=== PATIENT | female | born 1935 | race Caucasian/White ===

== ENCOUNTER 2017-05-12 19:45 | Inpatient (IN) ==
[2017-05-12] MEDS ORDERED: IPRATROPIUM/ALBUTEROL 3 ML AMPUL.NEB NEB ONE (19:56)
[2017-05-12] MEDS ORDERED: FUROSEMIDE 40 MG/4 ML VIAL IV ONE (20:13)
[2017-05-12] MEDS ORDERED: ALBUTEROL SULFATE 2.5 MG/3 ML NEBULIZER NEB ONE (20:13)
[2017-05-12 21:38] LABS: Basophils # (Auto) 0 K/mcL (0.0-0.3); Basophils % (Auto) 0.3 % (0.0-2.0); Eosinophils # (Auto) 0.2 K/mcL (0.0-0.7); Eosinophils % (Auto) 2.5 % (0.0-7.0); Granulocytes % (Auto) 65.5 % (38.0-78.0); Lymphocytes # (Auto) 1.7 K/mcL (1.5-4.8); Lymphocytes % (Auto) 23.8 % (15.5-49.0); Mean Cell Volume 93.1 fL (80.0-100.0); Mean Corpuscular Hemoglobin 30.7 pg (26.0-34.0); Monocytes # (Auto) 0.6 K/mcL (0.1-0.9); Monocytes % (Auto) 7.9 % (1.0-12.0); Platelet Count 238 K/mcL (140-440); RBC 3.85 M/mcL (4.00-5.20); Red Cell Distribution Width 15.2 % (11.5-14.5)
[2017-05-12 22:01] LABS: ALT/SGPT 19 U/l (0-40); Albumin 3.2 gm/dL (3.2-5.2); Albumin/Globulin Ratio 0.7 (1.0-2.3); Alkaline Phosphatase 79 U/L (39-117); Blood Urea Nitrogen 38 mg/dl (8-23); Magnesium 2.2 mg/dL (1.6-2.5)
--- NOTE | 2017-05-12 23:16 | Emergency Department Note ---
SOB HPI - General Chief Complaint: Shortness of Breath/Dyspnea Stated Complaint: shortness of breath Time Seen by Provider: 05/12/17 19:56 Source: family Mode of arrival: wheelchair Limitations: no limitations - History of Present Illness 82-year-old female with complaint of worsening shortness of breath last 2-3 weeks. She does report feeling cold but she denies any fever nausea vomiting diarrhea. She has had some trouble eating secondary to the shortness of breath. She denies being on home oxygen. She does have a history of COPD as well as CHF and chronic kidney disease. Patient initially had pulse oximetry 86 % on room air - Related Data Home Medications Medication Instructions Recorded Confirmed multivitamin tablet 1 tab PO QDAY tab 12/14/14 04/30/17 budesonide 180 mcg/actuation 1 inh INHALATION BID 10/09/16 04/30/17 breath activated powder inhaler magnesium oxide 400 mg capsule 400 mg PO QDAY cap 11/03/16 04/30/17 fluticasone 250 mcg-salmeterol 50 1 inh INHALATION Q12H 02/02/17 04/30/17 mcg/dose blistr powdr for inhalation levalbuterol HFA 45 mcg/actuation 45 mcg INHALATION QID g 02/02/17 04/30/17 aerosol inhaler Previous Rx's Medication Instructions Recorded blood sugar diagnostic strips See Dose Instructions .ROUTE 08/07/15 .MEDSUPPLY #100 each cyclobenzaprine 10 mg tablet 10 mg PO TID PRN #1 tab 11/03/16 furosemide 20 mg tablet See Label Instructions PO QDAY #90 11/03/16 tab insulin syringe-needle U-100 0.5 See Dose Instructions .ROUTE 11/18/16 mL 31 gauge x 11/10" .MEDSUPPLY #100 each carvedilol 25 mg tablet 12.5 mg PO BID 30 Days #30 tab 11/19/16 metformin 500 mg tablet 500 mg PO BID 30 Days #60 tab 11/19/16 insulin lispro 100 unit/mL See Label Instructions SUB-Q 11/24/16 subcutaneous solution .COMPLEX #10 ml pen needle, diabetic 32 gauge x See Dose Instructions .ROUTE 11/24/16" .MEDSUPPLY #200 each pramipexole 0.25 mg tablet 0.25 mg PO QHS 90 Days #90 tab 12/01/16 digoxin 125 mcg tablet 125 mcg PO QDAY 90 Days #90 tab 12/08/16 Compression stockings (knee high, #1 each 12/31/16 15-20 mmHg) CPAP Machine and associated #1 each 01/13/17 supplies sucralfate 1 gram tablet 2 g PO BID 30 Days #120 tab 02/11/[address] 40 mg granules 40 mg PO QAMAC 30 Days #30 packet 02/15/17 delayed-release for susp in packet montelukast 10 mg tablet 10 mg PO QHS 90 Days #90 tab 02/23/17 nystatin 100,000 unit/gram topical 1 applic TOPICAL BID #60 each 03/18/17 powder furosemide 20 mg tablet 20 mg PO QDAY PRN #90 tab 03/25/17 sodium chloride 1 gram tablet 1 g PO QDAY #90 tab 03/29/17 insulin detemir 100 unit/mL See Label Instructions SUB-Q BID 04/14/17 subcutaneous solution 90 Days #45 ml gabapentin 300 mg capsule See Label Instructions PO .COMPLEX 04/19/17 #450 cap tramadol 50 mg tablet 50 mg PO Q6H PRN #360 tab 04/19/17 lisinopril 2.5 mg tablet 2.5 mg PO QDAY #90 tab 05/01/17 warfarin 2 mg tablet 3 mg PO QDAY #100 tab 05/06/17 Allergies Allergy/AdvReac Type Severity Reaction Status Date / Time nitrofurantoin Allergy Mild Blister Verified 04/30/17 09:47 [From Macrodantin] Band-Aid AdvReac Mild Blister Uncoded 04/30/17 09:47 Review of Systems All systems ED: reviewed and negative except as stated. Past Medical History - Past Medical History Attestation: Yes: The following information was validated with the patient. Medical history: Reports: arthritis, asthma, atrial fibrillation, cancer ( Gastric lymphoma, Waldenstroms, MGUS, pancreatic neoplasm), CHF, COPD, dementia , diabetes, hyperlipidemia, hypertension, obesity, renal disease Surgical history ED: Reports: cholecystectomy, hysterectomy, orthopedic, other ( low back), other (port) - Social History smoking status: Never smoker Alcohol use: Reports: None Physical Exam Some acute distress secondary to wheezing-modest improvement with single DuoNeb treatment. Normocephalic atraumatic. Conjunctive are noninjected bilaterally. No discharge. No nasal discharge but audible congestion. Oropharynx is pink and moist. Neck is supple without lymphadenopathy or thyromegaly. Heart is with irregularly irregular rhythm but regular rate. Lungs with end expiratory wheezing pursed lip breathing. Tight cough occasionally. Abdomen is soft nontender nondistended. +2 radial pulse. Both legs with Vargas wrapped calves due to edema-patient says they are actually about typical for her. She is able to sit forward for my exam with minimal assistance so I can listen to her lungs. She is alert oriented able to answer most of my questions. No dysarthria or ataxia Limitations: no limitations Course Vital Signs Temperature 97.7 F 05/12/17 19:46 Pulse Rate 74 05/12/17 19:46 Respiratory Rate 19 05/12/17 19:46 Blood Pressure 132/99 05/12/17 19:46 Pulse Oximetry (%) 86 L 05/12/17 19:46 Temperature 97.7 F 05/12/17 19:46 Pulse Rate 75 05/13/17 00:02 Respiratory Rate 21 05/13/17 00:02 Blood Pressure 152/82 05/13/17 00:02 Pulse Oximetry (%) 94 05/13/17 00:02 Shortness of Breath/Dyspnea - Lab Data Lab results reviewed: Yes I reviewed the patient's lab results. Result diagrams: 05/12/17 20:38 05/12/17 20:37 Lab Results 05/12/17 05/12/17 05/12/17 Range/Units 20:37 20:38 20:38 WBC 7.3 (4.5-11.0) K/mcL RBC 3.85 L (4.00-5.20) M/mcL Hgb 11.8 L (12.0-15.0) g/dL Hct 35.9 L (36.0-48.0) % POC Hct 39.0 (36.0-48.0) % MCV 93.1 (80.0-100.0) fL MCH 30.7 (26.0-34.0) pg MCHC 33.0 (31.0-36.0) g/dL RDW 15.2 H (11.5-14.5) % Plt Count 238 (140-440) K/mcL MPV 8.7 (7.4-10.4) fL Gran % 65.5 (38.0-78.0) % Lymph % (Auto) 23.8 (15.5-49.0) % [place] % (Auto) 7.9 (1.0-12.0) % Eos % (Auto) 2.5 (0.0-7.0) % Baso % (Auto) 0.3 (0.0-2.0) % Gran # 4.8 (1.8-8.0) K/mcL Lymph # (Auto) 1.7 (1.5-4.8) K/mcL [place] # (Auto) 0.6 (0.1-0.9) K/mcL Eos # (Auto) 0.2 (0.0-0.7) K/mcL Baso # (Auto) 0 (0.0-0.3) K/mcL PT (11.9-14.5) sec INR (0.9-1.1) VBG Lactic Acid 1.8 (0.5-2.2) mmol/L POC Sodium 135 (133-145) mmol/L Sodium 132 L (133-145) mmol/L POC Potassium 4.5 (3.3-5.1) mmol/L Potassium 4.6 (3.3-5.1) mmol/L POC Chloride 90 L (96-108) mmol/L Chloride 91 L (96-108) mmol/L Carbon Dioxide 27 (22-30) mmol/L POC Total CO2 29 (22-30) mmol/L Anion Gap 14.0 (8-16) POC BUN 38 H (8-23) mg/dl BUN 38 H (8-23) mg/dl Creatinine 1.7 H (0.6-1.1) mg/dl POC Creatinine 1.5 H (0.6-1.1) mg/dl GFR Calculation 28 Glucose 155 H (70-105) mg/dL POC Glucose 156 H (70-105) mg/dL Calcium 9.6 (8.6-10.4) mg/dl POC WB Ioniz Calcium 1.11 L (1.16-1.32) mmol/L Magnesium 2.2 (1.6-2.5) mg/dL Total Bilirubin 0.4 (0.0-1.0) mg/dL AST 20 (0-37) U/l ALT 19 (0-40) U/l Alkaline Phosphatase 79 (39-117) U/L Troponin T (0-0.03) ng/ml NT-Pro-B Natriuret Pep 2917.0 H (0-450) pg/ml Total Protein 7.9 (5.9-8.4) gm/dL Albumin 3.2 (3.2-5.2) gm/dL Globulin 4.7 H (2.2-3.7) gm/dL Albumin/Globulin Ratio 0.7 L (1.0-2.3) Digoxin ng/mL Digoxin Dose Digox Last Dose Time 05/12/17 05/12/17 05/12/17 Range/Units 20:38 20:38 20:38 WBC (4.5-11.0) K/mcL RBC (4.00-5.20) M/mcL Hgb (12.0-15.0) g/dL Hct (36.0-48.0) % POC Hct (36.0-48.0) % MCV (80.0-100.0) fL MCH (26.0-34.0) pg MCHC (31.0-36.0) g/dL RDW (11.5-14.5) % Plt Count (140-440) K/mcL MPV (7.4-10.4) fL Gran % (38.0-78.0) % Lymph % (Auto) (15.5-49.0) % [place] % (Auto) (1.0-12.0) % Eos % (Auto) (0.0-7.0) % Baso % (Auto) (0.0-2.0) % Gran # (1.8-8.0) K/mcL Lymph # (Auto) (1.5-4.8) K/mcL [place] # (Auto) (0.1-0.9) K/mcL Eos # (Auto) (0.0-0.7) K/mcL Baso # (Auto) (0.0-0.3) K/mcL PT 25.3 H (11.9-14.5) sec INR 2.2 H (0.9-1.1) VBG Lactic Acid (0.5-2.2) mmol/L POC Sodium (133-145) mmol/L Sodium (133-145) mmol/L POC Potassium (3.3-5.1) mmol/L Potassium (3.3-5.1) mmol/L POC Chloride (96-108) mmol/L Chloride (96-108) mmol/L Carbon Dioxide (22-30) mmol/L POC Total CO2 (22-30) mmol/L Anion Gap (8-16) POC BUN (8-23) mg/dl BUN (8-23) mg/dl Creatinine (0.6-1.1) mg/dl POC Creatinine (0.6-1.1) mg/dl GFR Calculation Glucose (70-105) mg/dL POC Glucose (70-105) mg/dL Calcium (8.6-10.4) mg/dl POC WB Ioniz Calcium (1.16-1.32) mmol/L Magnesium (1.6-2.5) mg/dL Total Bilirubin (0.0-1.0) mg/dL AST (0-37) U/l ALT (0-40) U/l Alkaline Phosphatase (39-117) U/L Troponin T 0.02 (0-0.03) ng/ml NT-Pro-B Natriuret Pep (0-450) pg/ml Total Protein (5.9-8.4) gm/dL Albumin (3.2-5.2) gm/dL Globulin (2.2-3.7) gm/dL Albumin/Globulin Ratio (1.0-2.3) Digoxin 1.1 ng/mL Digoxin Dose Not Reportable Digox Last Dose Time Not Reportable Arterial blood gas shows pH 7.47 PCO2 45 PO2 of 83 on 1 L nasal cannula oxygen - Radiology Data Radiology results reviewed: Yes I reviewed the patient's radiology results. X-ray of the chest 2 views shows similar pattern but suspect worsening pulmonary vascular congestion. Possible early infiltrate right lower lobe - EKG Data EKG attestation: Yes I reviewed and interpreted this EKG. EKG results narrative: EKG shows atrial fibrillation with a rate of 69 T-wave inversion in 1 and aVL Disposition Pt seen by BEHAVIORAL HEALTH CASE MANAGER/PA only: No Clinical Impression: Acute exacerbation of chronic obstructive airways disease, Acute kidney injury (nontraumatic) CHF (congestive heart failure) Qualifiers: Congestive heart failure type: unspecified congestive heart failure type Congestive heart failure chronicity: acute on chronic Qualified Code(s): I50.9 - Heart failure, unspecified Chronic renal insufficiency Qualifiers: Chronic kidney disease stage: unspecified stage Qualified Code(s): N18.9 - Chronic kidney disease, unspecified Summary: Patient was initially treated with breathing treatment while working up. She got 1 dose of DuoNeb as well as another dose of albuterol with modest improvement with both. However she still required 1-2 L nasal cannula oxygen to keep her sats above 90% Laboratory and chest x-ray suggests slightly worse CHF acute on chronic so she is given furosemide 40 mg 1 time dose IV. I discussed her case with Dr. Lenore Leon the hospitalist because she is requiring oxygen now, likely COPD exacerbation and worsening CHF. She agreed to accept the patient for further workup and care as an inpatient Disposition: Xfer As Inpt ([facility]) Condition: Fair
--- NOTE | 2017-05-12 23:40 | Internal Med History&Physical ---
Medical - H&P: HPI Patient information: Note initiated : 05/12/17 at 11:40 pm Service Date, if different from initiated Date: [] Patient: Lyubov Brasher 82 y/o F admitted on for shortness of breath. Chief Complaint: I couldn't breathe History of present illness: Ms. Brasher is a 82 year old F with a history of morbid obesity, chronic lymphedema, asthma, ABDULLAHI on CPAP, a fib on warfarin and digoxin and heart failure with preserved ejection fraction who has been struggling with worsening shortness of breath over the last month. She was seen by her primary care provider, Dr. Guthrie, on 04/30 and was prescribed an extra 20 mg of Lasix for 5 days. She was taking this as a separate dose instead of in addition to her normal 40 mg of Lasix morning dose. She took it for 3 days and then forgot to continue it. She did not notice whether it changed her breathing. She was seen at the cancer center last week and was shocked to find that she had gained approximately 30 pounds from her normal weight of 256. She does not weigh herself daily at home. She and her report that they're in the process of getting home oxygen set up, but due to her persistent and progressive dyspnea , they presented to the ER tonight. She denies any fevers or chills. She has an occasional dry cough and her reports occasional wheeze when she comes off her CPAP in the morning. She denies any chest pain, nausea, abdominal pain, sick contacts. She denies rhinorrhea or sore throat. She was treated with Lasix 40mg IV in the ED and reports she had a large void but that she does not notice significant improvement in her breathing. She desaturated to 86% on RA and continues to require 2L NC. Her CXR shows pulmonary edema and her BNP is elevated. Review of systems: Please see the HPI. Otherwise a comprehensive review of systems is negative or noncontributory to the chief complaint. Medical - H&P: PMH Medical history: Past medical history: CHF with PCP notes noting EF of 50-55% and August ABDULLAHI on CPAP Asthma A. 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 Her daughter stays with them, but it sounds like she is not around much. She is a retired box truck driver. Her reports that they have several walkers at home, but she does not really use them. She is a full code and her , Bernardo, is her healthcare power of attorney lawyer. She would not want long-term life support. She is a never smoker , no alcohol use or recreational drug use. Medical - H&P: Meds Home Medications Medication Instructions Recorded Confirmed Type multivitamin tablet 1 tab PO QDAY tab 12/14/14 04/30/17 History blood sugar diagnostic strips See Dose Instructions .ROUTE 08/07/15 04/30/17 Rx .MEDSUPPLY #100 each budesonide 180 mcg/actuation 1 inh INHALATION BID 10/09/16 04/30/17 History breath activated powder inhaler cyclobenzaprine 10 mg tablet 10 mg PO TID PRN #1 tab 11/03/16 04/30/17 Rx furosemide 20 mg tablet See Label Instructions PO QDAY #90 11/03/16 04/30/17 Rx tab magnesium oxide 400 mg capsule 400 mg PO QDAY cap 11/03/16 04/30/17 History insulin syringe-needle U-100 0.5 See Dose Instructions .ROUTE 11/18/16 04/30/17 Rx mL 31 gauge x 16" .MEDSUPPLY #100 each carvedilol 25 mg tablet 12.5 mg PO BID 30 Days #30 tab 11/19/16 04/30/17 Rx metformin 500 mg tablet 500 mg PO BID 30 Days #60 tab 11/19/16 04/30/17 Rx insulin lispro 100 unit/mL See Label Instructions SUB-Q 11/24/16 04/30/17 Rx subcutaneous solution .COMPLEX #10 ml pen needle, diabetic 32 gauge x See Dose Instructions .ROUTE 11/24/16 04/30/17 Rx 5/32" .MEDSUPPLY #200 each pramipexole 0.25 mg tablet 0.25 mg PO QHS 90 Days #90 tab 12/01/16 04/30/17 Rx digoxin 125 mcg tablet 125 mcg PO QDAY 90 Days #90 tab 12/08/16 04/30/17 Rx Compression stockings (knee high, #1 each 12/31/16 04/30/17 Rx 15-20 mmHg) CPAP Machine and associated #1 each 01/13/17 04/30/17 Rx supplies fluticasone 250 mcg-salmeterol 50 1 inh INHALATION Q12H 02/02/17 04/30/17 History mcg/dose blistr powdr for inhalation levalbuterol HFA 45 mcg/actuation 45 mcg INHALATION QID g 02/02/17 04/30/17 History aerosol inhaler sucralfate 1 gram tablet 2 g PO BID 30 Days #120 tab 02/11/17 04/30/[address] 40 mg granules 40 mg PO QAMAC 30 Days #30 packet 02/15/17 Rx delayed-release for susp in packet montelukast 10 mg tablet 10 mg PO QHS 90 Days #90 tab 02/23/17 04/30/17 Rx nystatin 100,000 unit/gram topical 1 applic TOPICAL BID #60 each 03/18/17 Rx powder furosemide 20 mg tablet 20 mg PO QDAY PRN #90 tab 03/25/17 04/30/17 Rx sodium chloride 1 gram tablet 1 g PO QDAY #90 tab 03/29/17 04/30/17 Rx insulin detemir 100 unit/mL See Label Instructions SUB-Q BID 04/14/17 04/30/17 Rx subcutaneous solution 90 Days #45 ml gabapentin 300 mg capsule See Label Instructions PO .COMPLEX 04/19/17 04/30/17 Rx #450 cap tramadol 50 mg tablet 50 mg PO Q6H PRN #360 tab 04/19/17 04/30/17 Rx lisinopril 2.5 mg tablet 2.5 mg PO QDAY #90 tab 05/01/17 Rx warfarin 2 mg tablet 3 mg PO QDAY #100 tab 05/06/17 Rx Allergies Allergy/AdvReac Type Severity Reaction Status Date / Time nitrofurantoin Allergy Mild Blister Verified 04/30/17 09:47 [From Macrodantin] Band-Aid AdvReac Mild Blister Uncoded 04/30/17 09:47 Medical - H&P: Exam - Constitutional Vitals: Temp Pulse Resp BP Pulse Ox 97.7 F 73 18 151/75 96 05/12/17 19:46 05/12/17 21:32 05/12/17 21:32 05/12/17 21:32 05/12/17 21:32 General: This is a pleasant, obese woman lying comfortably in bed on nasal cannula. She has purple hair and her is at the bedside. HEENT: Normocephalic atraumatic. PERRLA. EOMI. Sclerae are anicteric. Conjunctivae are noninjected. Mucous membranes are dry. Neck: Obese, no obvious JVD. No cervical lymphadenopathy. CV: Irregularly irregular. No murmurs Respiratory: No acute respiratory distress. No wheezing; no crackles. Abdomen: Obese, nondistended, nontender. Positive bowel tones Extremities: No clubbing or cyanosis. She has 4+ edema of her bilateral lower extremities. Skin: Warm and dry. Xerosis Neuro: Alert and oriented 3. Cranial nerves II through XII are intact. She has no focal motor or sensory deficits Psych: Normal mood and affect. Medical - H&P: Reslt - Labs CBC & Chem 7: 05/12/17 20:38 05/12/17 20:37 Labs: Short CBC 05/12/17 Range/Units 20:38 WBC 7.3 (4.5-11.0) K/mcL Hgb 11.8 L (12.0-15.0) g/dL Hct 35.9 L (36.0-48.0) % Plt Count 238 (140-440) K/mcL BMP 05/12/17 20:37 Sodium 132 L Potassium 4.6 Chloride 91 L Carbon Dioxide 27 BUN 38 H Creatinine 1.7 H Glucose 155 H Calcium 9.6 Cardiac Enzymes 05/12/17 Range/Units 20:38 Troponin T 0.02 (0-0.03) ng/ml Liver Function 05/12/17 Range/Units 20:37 Total Bilirubin 0.4 (0.0-1.0) mg/dL AST 20 (0-37) U/l ALT 19 (0-40) U/l Alkaline Phosphatase 79 (39-117) U/L Albumin 3.2 (3.2-5.2) gm/dL - ABG Interpretation Additional comments: ABG shows a pH of 7.47, PCO2 45, PO2 of 83 on 1 L of oxygen. - Impressions Chest x-ray shows pulmonary edema Medical - H&P: A/P - Narrative A/P Narrative: #Acute hypoxic respiratory failure, currently requiring 2L NC -2/2 ADHF--see that assessment -ABDULLAHI on CPAP--cont CPAP -asthma without e/o exacerbation--cont home Advair and Xopenex #Acute decompensated CHF -BNP 2917 (up from 2113); weight gain of 30# -most recent echo done in August at [facility] with reported EF 50-55% per review of PCP notes -She has been taking the extra Lasix as an extra dose rather than combining it with her regular dose; I suspect her kidneys are not actually seeing the extra diuretic dose. Her unreconciled home med list includes a salt tab; will DC that here for now. -Request echo records; consider repeating if not improving -Lasix 40 IV QD. Strict I/O; daily weights. Tele while diuresing -will likely need O2 on DC; may benefit from HH to help with CHF teaching -cont home carvedilol and lisinopril; may need to reduce if BP becomes soft with diuresis #Chronic A. 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 Avoid nephrotoxic meds. Renally dose meds as needed. Trend Cr. #DVT ppx: warfarin #Code status: Full. POA is , Bernardo.
[2017-05-13] MEDS ORDERED: ONDANSETRON 4 MG/2 ML VIAL IV PRN (01:11)
[2017-05-13] MEDS ORDERED: DEXTROSE 31 GM ORAL.SUSP PO PRN (01:11)
[2017-05-13] MEDS ORDERED: DEXTROSE 50% 50 ML VIAL IV PRN (01:11)
[2017-05-13] MEDS ORDERED: LEVALBUTEROL 0.63 MG/3 ML AMPUL.NEB NEB PRN (01:11)
[2017-05-13] MEDS ORDERED: ACETAMINOPHEN 325 MG TABLET PO PRN (01:11)
[2017-05-13] MEDS ORDERED: traMADol 50 MG TABLET PO ONE ×2 (02:27→02:41)
[2017-05-13] MEDS ORDERED: GABAPENTIN 300 MG CAPSULE PO ONE (02:27)
[2017-05-13] MEDS ORDERED: GABAPENTIN 300 MG CAPSULE ONE (02:41)
[2017-05-13 03:16] LABS: Estimated Average Glucose(eAG) 214 mg/dL; Hemoglobin A1C 9.1 % HGB (4.0-6.0)
--- NOTE | 2017-05-13 06:04 | XRay Report ---
INDICATION: Dyspnea TECHNIQUE: AP and lateral upright chest x-ray COMPARISON: 04/30/2017, 03/13/2016, 02/11/2016 FINDINGS:No change in position of left-sided Port-A-Cath. There is a focal infiltrate at the right cardiophrenic angle. This consistent with right middle lobe pneumonia. Follow-up radiographs are recommended. Left lung is negative. There is mild cardiomegaly, unchanged. No pulmonary edema or pulmonary congestion. No pleural fluid IMPRESSION: 1. Right middle lobe infiltrate consistent with pneumonia. Follow-up radiographs recommended 2. Cardiomegaly. No congestive heart failure Interpreted and Authenticated by: Ean Donovan 05/13/17
[2017-05-13 06:07] LABS: ALT/SGPT 15 U/l (0-40); Albumin 3.1 gm/dL (3.2-5.2); Albumin/Globulin Ratio 0.7 (1.0-2.3); Alkaline Phosphatase 72 U/L (39-117); Blood Urea Nitrogen 37 mg/dl (8-23)
[2017-05-13] MEDS: PANTOPRAZOLE 40 MG PACKET PO SCH (07:33)
[2017-05-13] MEDS: CARVEDILOL 12.5 MG TABLET PO SCH ×2 (07:33→17:48)
[2017-05-13] MEDS: INSULIN LISPRO 1 UNIT/0.01 ML UNIT SQ SCH ×5 (07:33→21:21)
[2017-05-13] MEDS: FUROSEMIDE 40 MG/4 ML VIAL IV SCH (09:44)
[2017-05-13] MEDS: INSULIN GLARGINE, HUMAN 1 UNIT/0.01 ML SQ SCH ×2 (09:45→21:21)
[2017-05-13] MEDS: LISINOPRIL 5 MG TABLET PO SCH (09:45)
[2017-05-13] MEDS: WARFARIN 3 MG TABLET PO SCH (13:56)
--- NOTE | 2017-05-13 14:52 | Internal Med Progress Note ---
Medical - PN: Subj Patient information: Note initiated : 05/13/17 at 2:50 pm Service Date, if different from initiated Date: [] Patient: Lyubov Brasher 82 y/o F admitted on 05/13/17 for shortness of breath. Chief Complaint: [] Interval history: May 12 HPI: Ms. Brasher is a 82 year old F with a history of morbid obesity, chronic lymphedema, asthma, ABDULLAHI on CPAP, a fib on warfarin and digoxin and heart failure with preserved ejection fraction who has been struggling with worsening shortness of breath over the last month. She was seen by her primary care provider, Dr. Guthrie, on 04/30 and was prescribed an extra 20 mg of Lasix for 5 days. She was taking this as a separate dose instead of in addition to her normal 40 mg of Lasix morning dose. She took it for 3 days and then forgot to continue it. She did not notice whether it changed her breathing. She was seen at the cancer center last week and was shocked to find that she had gained approximately 30 pounds from her normal weight of 256. She does not weigh herself daily at home. She and her report that they're in the process of getting home oxygen set up, but due to her persistent and progressive dyspnea , they presented to the ER tonight. She denies any fevers or chills. She has an occasional dry cough and her reports occasional wheeze when she comes off her CPAP in the morning. She denies any chest pain, nausea, abdominal pain, sick contacts. She denies rhinorrhea or sore throat. She was treated with Lasix 40mg IV in the ED and reports she had a large void but that she does not notice significant improvement in her breathing. She desaturated to 86% on RA and continues to require 2L NC. Her CXR shows pulmonary edema and her BNP is elevated. May 13: Feels much better today; breathing easier. Weaning off O2. Wants to avoid home oxygen if she can. Will likely transition to po diuretics tomorrow if does well today. CXR read as RML PNA. No f/c, productive cough. ROS: no nausea or chest pain - Constitutional Vitals: Vital Signs Temp Pulse Resp BP Pulse Ox 98.7 F 67 16 135/62 97 05/13/17 13:00 05/13/17 13:00 05/13/17 13:00 05/13/17 13:00 05/13/17 12:20 Period Temp Pulse Resp BP Sys/Smith Pulse Ox Last 24 Hr 97.7 F-98.8 F 59-118 15-49 113-171/53-117 86-100 Intake and Output 05/13/17 05/13/17 05/13/17 05:59 13:59 21:59 Intake Total 120 / 120 Output Total 1200 / 1200 1200 / 1200 Balance -1080 / -1080 -1200 / -1200 Weight 282 lb 14.4 oz Intake & Output: Intake & Output 05/13/17 05/13/17 05/13/17 05:59 13:59 21:59 Intake Total 120 / 120 Output Total 1200 / 1200 1200 / 1200 Balance -1080 / -1080 -1200 / -1200 Weight 282 lb 14.4 oz Intake: Oral 120 / 120 Output: Void Amount 1200 / 1200 1200 / 1200 Other: Meal Breakfast Percent of Meal Consumed 25% # Voids 2 General:NAD. Sitting up in chair CV: Irregularly irregular. No murmurs Respiratory: No acute respiratory distress. No wheezing; no crackles. Abdomen: Obese, nondistended, nontender. Positive bowel tones Extremities: No clubbing or cyanosis. She has 4+ edema of her bilateral lower extremities. Skin: Warm and dry. Xerosis Neuro: Alert and oriented 3. Cranial nerves II through XII are intact. She has no focal motor or sensory deficits Psych: Normal mood and affect. Medical - PN: Obj Da - Labs CBC & Chem 7: 05/12/17 20:38 05/13/17 04:00 Labs: Abnormal Lab Results 05/13/17 05/13/17 05/13/17 04:00 04:00 04:00 RBC Hgb Hct RDW PT 27.6 H INR 2.5 H Sodium POC Chloride Chloride 92 L POC BUN BUN 37 H Creatinine 1.6 H POC Creatinine Glucose 162 H POC Glucose Hemoglobin A1c POC WB Ioniz Calcium NT-Pro-B Natriuret Pep 2804.0 H Albumin 3.1 L Globulin 4.7 H Albumin/Globulin Ratio 0.7 L 05/13/17 05/12/17 05/12/17 01:20 20:38 20:38 RBC 3.85 L Hgb 11.8 L Hct 35.9 L RDW 15.2 H PT 25.3 H INR 2.2 H Sodium POC Chloride Chloride POC BUN BUN Creatinine POC Creatinine Glucose POC Glucose Hemoglobin A1c 9.1 H POC WB Ioniz Calcium NT-Pro-B Natriuret Pep Albumin Globulin Albumin/Globulin Ratio 05/12/17 20:37 RBC Hgb Hct RDW PT INR Sodium 132 L POC Chloride 90 L Chloride 91 L POC BUN 38 H BUN 38 H Creatinine 1.7 H POC Creatinine 1.5 H Glucose 155 H POC Glucose 156 H Hemoglobin A1c POC WB Ioniz Calcium 1.11 L NT-Pro-B Natriuret Pep 2917.0 H Albumin Globulin 4.7 H Albumin/Globulin Ratio 0.7 L Meds: Medications Acetaminophen (Tylenol) 650 mg PO Q6HP PRN PRN Reason: PAIN/FEVER > 101 Hydrocodone Bitart/Acetaminophen ([place] 5/325mg) 1 tab PO Q3HP PRN PRN Reason: PAIN LEVEL 3-6 [facility] ([facility]) [facility] Last Admin: 05/13/17 07:33 Dose: 12.5 mg Dextrose (Dextrose 50%) 0 ml IV UD PRN PRN Reason: Hypoglycemia Diagnostic Test (Pha) (Accu-Chek) 1 each FS [facility] Last Admin: 05/13/17 14:02 Dose: 1 each Furosemide (Lasix) 40 mg IV DAILY [facility] Last Admin: 05/13/17 09:44 Dose: 40 mg Glucose (Insta-Glucose) 15 gm PO PRN PRN PRN Reason: Hypoglycemia Insulin Glargine (Lantus) 30 unit SQ BID [facility] Last Admin: 05/13/17 09:45 Dose: 30 unit Insulin Human Lispro (Humalog) 0 unit SQ [facility] PRN Reason: Protocol Last Admin: 05/13/17 14:08 Dose: Not Given Levalbuterol HCl (Xopenex) 0.63 mg NEB Q4HP PRN PRN Reason: Wheezing Lisinopril (Zestril) 2.5 mg PO DAILY [facility] Last Admin: 05/13/17 09:45 Dose: 2.5 mg Ondansetron HCl (Zofran) 4 mg IV Q4HP PRN PRN Reason: Nausea And Vomiting Pantoprazole Sodium (Pro[facility]ix) [facility] Last Admin: 05/13/17 07:33 Dose: 40 mg Warfarin Sodium (Coumadin Per Pharmacy) 1 order PO DAILY@1400 [facility] Last Admin: 05/13/17 14:07 Dose: Not Given Warfarin Sodium (Coumadin) 3 mg PO SuTuWeThFrSa@1400 [facility] Last Admin: 05/13/17 13:56 Dose: 3 mg Warfarin Sodium (Coumadin) 2 mg PO Mo@1400 [facility] Medical - PN: A/P - Time Spent With Patient Total time spent is greater than 50% in coordination of care (as documented) at patient's floor/unit and/or counseling patient: 25 - 35 minutes - Narrative A/P Narrative: #Acute hypoxic respiratory failure, currently requiring 2L NC -2/2 ADHF--see that assessment -ABDULLAHI on CPAP--cont CPAP -asthma without e/o exacerbation--cont home Advair and Xopenex #Acute decompensated CHF -BNP 2917-->2804; NURSE weight gain of 30# -most recent echo done in August at [facility] with reported EF 50-55% per review of PCP notes -She has been taking the extra Lasix as an extra dose rather than combining it with her regular dose; I suspect her kidneys are not actually seeing the extra diuretic dose. Her home med list includes a salt tab; will DC that here for now. -Request echo records; consider repeating if not improving -Lasix 40 IV QD. Strict I/O; daily weights. Tele while diuresing -will likely need O2 on DC; may benefit from HH to help with CHF teaching -cont home carvedilol and lisinopril; may need to reduce if BP becomes soft with diuresis #Abnormal CXR -radiology read as RML infiltrate. No clinical e/o PNA (no fever or WBC). Repeat CXR recommended to ensure resolution. #Chronic A. fib on warfarin, currently rate controlled -INR 2.5, digoxin 1.1. Cont dig. 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 BG controlled continue home gabapentin #Chronic kidney disease stage III -baseline Cr 1.4-1.8 -Cr 1.6. Avoid nephrotoxic meds. Renally dose meds as needed. Trend Cr. #DVT ppx: warfarin #Code status: Full. POA is , Bernardo. #Dispo: Likely home tomorrow w for CHF teaching. Will need walking oximetry prior to DC. Medical - PN: Qual - VTE Deep Vein Thrombosis/Pulmonary Embolism Present on Admission: No
[2017-05-13] MEDS: BUDESONIDE 1 PUFF INHALER INH SCH (21:21)
[2017-05-13] MEDS: HYDROcodone/APAP 5/325MG TABLET PO PRN (21:21)
[2017-05-14 05:30] LABS: Mean Cell Volume 93.2 fL (80.0-100.0); Mean Corpuscular Hemoglobin 30.8 pg (26.0-34.0); Platelet Count 231 K/mcL (140-440); RBC 3.48 M/mcL (4.00-5.20); Red Cell Distribution Width 15.7 % (11.5-14.5)
[2017-05-14 05:57] LABS: ALT/SGPT 14 U/l (0-40); Albumin 3.2 gm/dL (3.2-5.2); Albumin/Globulin Ratio 0.8 (1.0-2.3); Alkaline Phosphatase 67 U/L (39-117); Blood Urea Nitrogen 33 mg/dl (8-23)
[2017-05-14 06:37] LABS: Anisocytosis 1+ (NONE SEEN); Basophils % (Manual) 1 % (0-2); Eosinophils % (Manual) 7 % (0-7); Lymphocytes % 16 % (15-49); Monocytes % (Manual) 9 % (1-12); Platelet Estimate NORMAL (NORMAL); RBC Morphology ABNORM (NORMAL); Segmented Neutrophils % 67 % (38-78)
[2017-05-14] MEDS: FUROSEMIDE 40 MG/4 ML VIAL IV SCH (09:07)
[2017-05-14] MEDS: LISINOPRIL 5 MG TABLET PO SCH (09:07)
[2017-05-14] MEDS: PANTOPRAZOLE 40 MG PACKET PO SCH (09:07)
[2017-05-14] MEDS: INSULIN GLARGINE, HUMAN 1 UNIT/0.01 ML SQ SCH ×2 (09:08→21:30)
[2017-05-14] MEDS: INSULIN LISPRO 1 UNIT/0.01 ML UNIT SQ SCH ×4 (09:08→21:19)
[2017-05-14] MEDS: CARVEDILOL 12.5 MG TABLET PO SCH ×2 (09:08→17:31)
[2017-05-14] MEDS: traMADol 50 MG TABLET PO PRN ×2 (10:53→19:27)
[2017-05-14] MEDS: BUDESONIDE 1 PUFF INHALER INH SCH ×3 (10:54→21:20)
[2017-05-14] MEDS: GABAPENTIN 100 MG CAPSULE PO SCH ×2 (11:17→14:30)
--- NOTE | 2017-05-14 11:28 | Internal Med Progress Note ---
Medical - PN: Subj Patient information: Note initiated : 05/14/17 at 11:26 am Service Date, if different from initiated Date: [] Patient: Lyubov Brasher 82 y/o F admitted on 05/13/17 for SOB/Hypoxic Respiratory Failure, CHF. Chief Complaint: [] Interval history: May 12 HPI: Ms. Brasher is a 82 year old F with a history of morbid obesity, chronic lymphedema, asthma, ABDULLAHI on CPAP, a fib on warfarin and digoxin and heart failure with preserved ejection fraction who has been struggling with worsening shortness of breath over the last month. She was seen by her primary care provider, Dr. Guthrie, on 04/30 and was prescribed an extra 20 mg of Lasix for 5 days. She was taking this as a separate dose instead of in addition to her normal 40 mg of Lasix morning dose. She took it for 3 days and then forgot to continue it. She did not notice whether it changed her breathing. She was seen at the cancer center last week and was shocked to find that she had gained approximately 30 pounds from her normal weight of 256. She does not weigh herself daily at home. She and her report that they're in the process of getting home oxygen set up, but due to her persistent and progressive dyspnea , they presented to the ER tonight. She denies any fevers or chills. She has an occasional dry cough and her reports occasional wheeze when she comes off her CPAP in the morning. She denies any chest pain, nausea, abdominal pain, sick contacts. She denies rhinorrhea or sore throat. She was treated with Lasix 40mg IV in the ED and reports she had a large void but that she does not notice significant improvement in her breathing. She desaturated to 86% on RA and continues to require 2L NC. Her CXR shows pulmonary edema and her BNP is elevated. May 13: Feels much better today; breathing easier. Weaning off O2. Wants to avoid home oxygen if she can. Will likely transition to po diuretics tomorrow if does well today. CXR read as RML PNA. No f/c, productive cough. May 14: Still requiring O2 overnight (1L) and with activity (3L). She initially wanted to go home but is willing to stay for further IV diuresis for another day. She has some moderate leg pain after walking today and is requesting her home tramadol. ROS: no fever or cough - Constitutional Vitals: Vital Signs Temp Pulse Resp BP Pulse Ox 98.9 F 87 18 164/60 92 05/14/17 08:00 05/14/17 08:00 05/14/17 08:00 05/14/17 08:00 05/14/17 08:00 Period Temp Pulse Resp BP Sys/Smith Pulse Ox Last 24 Hr 97.3 F-98.9 F 64-87 16-20 132-164/60-84 92-99 Intake and Output 05/13/17 05/14/17 05/14/17 21:59 05:59 13:59 Intake Total 480 / 480 360 / 360 240 / 240 Output Total 1700 / 1700 550 / 550 400 / 400 Balance -1220 / -1220 -190 / -190 -160 / -160 Weight 281 lb 9.6 oz Intake & Output: Intake & Output 05/13/17 05/14/17 05/14/17 21:59 05:59 13:59 Intake Total 480 / 480 360 / 360 240 / 240 Output Total 1700 / 1700 550 / 550 400 / 400 Balance -1220 / -1220 -190 / -190 -160 / -160 Weight 281 lb 9.6 oz Intake: Oral 480 / 480 360 / 360 240 / 240 Output: Void Amount 1700 / 1700 550 / 550 400 / 400 Other: Meal Dinner Breakfast Percent of Meal Consumed 50% 100% Feeding Ability Assist with Tray Set Up # Bowel Movements 1 Exam: General:NAD. Seen just after walking with PT. Mildly tachypneic, but not distressed CV: Irregularly irregular. No murmurs Respiratory: No acute respiratory distress. No wheezing; no crackles. Abdomen: Obese, nondistended, nontender. Positive bowel tones Extremities: No clubbing or cyanosis. She has 4+ edema of her bilateral lower extremities. Skin: Warm and dry. Xerosis Neuro: Alert and oriented 3. Cranial nerves II through XII are intact. She has no focal motor or sensory deficits Psych: Normal mood and affect. Medical - PN: Obj Da - Labs CBC & Chem 7: 05/14/17 04:00 05/14/17 04:00 Labs: Abnormal Lab Results 05/14/17 05/14/17 05/14/17 04:00 04:00 04:00 RBC 3.48 L Hgb 10.7 L Hct 32.4 L RDW 15.7 H RBC Morphology Abnorm A Polychromasia Few A Anisocytosis 1+ A PT 29.9 H INR 2.7 H Sodium POC Chloride Chloride 94 L Carbon Dioxide 32 H POC BUN BUN 33 H Creatinine 1.5 H POC Creatinine Glucose 124 H POC Glucose Hemoglobin A1c POC WB Ioniz Calcium NT-Pro-B Natriuret Pep Albumin Globulin 4.2 H Albumin/Globulin Ratio 0.8 L 05/13/17 05/13/17 05/13/17 04:00 04:00 04:00 RBC Hgb Hct RDW RBC Morphology Polychromasia Anisocytosis PT 27.6 H INR 2.5 H Sodium POC Chloride Chloride 92 L Carbon Dioxide POC BUN BUN 37 H Creatinine 1.6 H POC Creatinine Glucose 162 H POC Glucose Hemoglobin A1c POC WB Ioniz Calcium NT-Pro-B Natriuret Pep 2804.0 H Albumin 3.1 L Globulin 4.7 H Albumin/Globulin Ratio 0.7 L 05/13/17 05/12/17 05/12/17 01:20 20:38 20:38 RBC 3.85 L Hgb 11.8 L Hct 35.9 L RDW 15.2 H RBC Morphology Polychromasia Anisocytosis PT 25.3 H INR 2.2 H Sodium POC Chloride Chloride Carbon Dioxide POC BUN BUN Creatinine POC Creatinine Glucose POC Glucose Hemoglobin A1c 9.1 H POC WB Ioniz Calcium NT-Pro-B Natriuret Pep Albumin Globulin Albumin/Globulin Ratio 05/12/17 20:37 RBC Hgb Hct RDW RBC Morphology Polychromasia Anisocytosis PT INR Sodium 132 L POC Chloride 90 L Chloride 91 L Carbon Dioxide POC BUN 38 H BUN 38 H Creatinine 1.7 H POC Creatinine 1.5 H Glucose 155 H POC Glucose 156 H Hemoglobin A1c POC WB Ioniz Calcium 1.11 L NT-Pro-B Natriuret Pep 2917.0 H Albumin Globulin 4.7 H Albumin/Globulin Ratio 0.7 L Meds: Medications Acetaminophen (Tylenol) 650 mg PO Q6HP PRN PRN Reason: PAIN/FEVER > 101 Hydrocodone Bitart/Acetaminophen ([place] 5/325mg) 1 tab PO Q3HP PRN PRN Reason: PAIN LEVEL 3-6 Last Admin: 05/13/17 21:21 Dose: 1 tab Budesonide (Pulmicort) 2 puff INH TID [facility] Last Admin: 05/14/17 10:54 Dose: Not Given Carvedilol (Coreg) 12.5 mg PO BIDCC [facility] Last Admin: 05/14/17 09:08 Dose: 12.5 mg Dextrose (Dextrose 50%) 0 ml IV UD PRN PRN Reason: Hypoglycemia Diagnostic Test (Pha) (Accu-Chek) 1 each FS [facility] Last Admin: 05/14/17 09:08 Dose: 1 each Digoxin (Lanoxin) 125 mcg PO DAILY@1400 [facility] Furosemide (Lasix) 40 mg IV DAILY [facility] Last Admin: 05/14/17 09:07 Dose: 40 mg Gabapentin (Neurontin) 100 mg PO BID@1000,1400 [facility] Last Admin: 05/14/17 11:17 Dose: 100 mg Gabapentin (Neurontin) 300 mg PO HS [facility] Glucose (Insta-Glucose) 15 gm PO PRN PRN PRN Reason: Hypoglycemia Insulin Glargine (Lantus) 30 unit SQ BID [facility] Last Admin: 05/14/17 09:08 Dose: 30 unit Insulin Human Lispro (Humalog) 0 unit SQ [facility] PRN Reason: Protocol Last Admin: 05/14/17 09:08 Dose: Not Given Levalbuterol HCl (Xopenex) 0.63 mg NEB Q4HP PRN PRN Reason: Wheezing Lisinopril (Zestril) 2.5 mg PO DAILY [facility] Last Admin: 05/14/17 09:07 Dose: 2.5 mg Ondansetron HCl (Zofran) 4 mg IV Q4HP PRN PRN Reason: Nausea And Vomiting Pantoprazole Sodium (Protonix) 40 mg PO QAMAC [facility] Last Admin: 05/14/17 09:07 Dose: 40 mg Tramadol HCl (Ultram) 50 mg PO Q6HP PRN PRN Reason: Pain Last Admin: 05/14/17 10:53 Dose: 50 mg Warfarin Sodium (Coumadin Per Pharmacy) 1 order PO DAILY@1400 [facility] Last Admin: 05/13/17 14:07 Dose: Not Given Warfarin Sodium (Coumadin) 3 mg PO SuTuWeThFrSa@1400 [facility] Last Admin: 05/13/17 13:56 Dose: 3 mg Warfarin Sodium (Coumadin) 2 mg PO Mo@1400 [facility] Warfarin Sodium (Coumadin) 1 mg PO ONCE@1400 [facility] Stop: 05/14/17 14:01 Medical - PN: A/P - Time Spent With Patient Total time spent is greater than 50% in coordination of care (as documented) at patient's floor/unit and/or counseling patient: 25 - 35 minutes - Narrative A/P Narrative: #Acute on probable chronic hypoxic respiratory failure -2/2 ADHF--see that assessment -ABDULLAHI on CPAP--cont CPAP -asthma without e/o exacerbation--cont home Advair and Xopenex -home O2 ordered; needs 3L with activity and 1L at night #Acute decompensated CHF -BNP 2917-->2804; [employer]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 Her home med list includes a salt tab; will DC that here for now. -Request echo records; consider repeating if not improving -Lasix 40 IV QD. Strict I/O; daily weights. Tele while diuresing. Will likely DC on Lasix 60-80mg daily. Has not needed K supplementation here, but may need a low dose to DC on. -HH ordered to help with CHF teaching -cont home carvedilol and lisinopril; may need to reduce if BP becomes soft with diuresis #Abnormal CXR -radiology read as RML infiltrate. No clinical e/o PNA (no fever or WBC). Repeat CXR recommended in the future to ensure resolution. #Chronic A. fib on warfarin, currently rate controlled -INR 2.5, digoxin 1.1. Cont dig. 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 BG controlled continue home gabapentin; add back home tramadol #Chronic kidney disease stage III -baseline Cr 1.4-1.8 -Cr 1.5. Avoid nephrotoxic meds. Renally dose meds as needed. Trend Cr. #DVT ppx: warfarin #Code status: Full. POA is , Bernardo. #Dispo: Likely home tomorrow w HH for CHF teaching. Medical - PN: Qual - VTE Deep Vein Thrombosis/Pulmonary Embolism Present on Admission: No
[2017-05-14] MEDS ORDERED: DIGOXIN 125 MCG TABLET PO SCH (14:00)
[2017-05-14] MEDS ORDERED: WARFARIN 1 MG TABLET PO ONE (14:00)
[2017-05-14] MEDS: WARFARIN 3 MG TABLET PO SCH ×2 (14:30→14:43)
[2017-05-14] MEDS: HYDROcodone/APAP 5/325MG TABLET PO PRN (19:26)
[2017-05-14] MEDS ORDERED: GABAPENTIN 300 MG CAPSULE PO SCH (21:00)
[2017-05-14] MEDS ORDERED: COLCHICINE 0.6 MG TABLET PO ONE (21:15)
[2017-05-15] MEDS: HYDROcodone/APAP 5/325MG TABLET PO PRN ×2 (03:26→09:53)
[2017-05-15] MEDS: traMADol 50 MG TABLET PO PRN (03:26)
[2017-05-15 05:28] LABS: Mean Cell Volume 93.8 fL (80.0-100.0); Mean Corpuscular HGB Conc 33.1 g/dL (31.0-36.0); Mean Corpuscular Hemoglobin 31.1 pg (26.0-34.0); Platelet Count 218 K/mcL (140-440); RBC 3.39 M/mcL (4.00-5.20); Red Cell Distribution Width 15.1 % (11.5-14.5)
[2017-05-15 06:07] LABS: ALT/SGPT 13 U/l (0-40); Albumin 2.8 gm/dL (3.2-5.2); Albumin/Globulin Ratio 0.6 (1.0-2.3); Alkaline Phosphatase 63 U/L (39-117); Blood Urea Nitrogen 30 mg/dl (8-23)
[2017-05-15 06:12] LABS: Anisocytosis 1+ (NONE SEEN); Band Neutrophils % 1 % (0-10); Basophils % (Manual) 1 % (0-2); Eosinophils % (Manual) 3 % (0-7); Lymphocytes % 27 % (15-49); Monocytes % (Manual) 16 % (1-12); Platelet Estimate NORMAL (NORMAL); RBC Morphology ABNORM (NORMAL); Segmented Neutrophils % 52 % (38-78)
[2017-05-15] MEDS: INSULIN LISPRO 1 UNIT/0.01 ML UNIT SQ SCH (07:30)
[2017-05-15] MEDS: PANTOPRAZOLE 40 MG PACKET PO SCH (08:21)
[2017-05-15] MEDS: INSULIN GLARGINE, HUMAN 1 UNIT/0.01 ML SQ SCH (08:37)
[2017-05-15] MEDS: FUROSEMIDE 40 MG/4 ML VIAL IV SCH (08:40)
[2017-05-15] MEDS: LISINOPRIL 5 MG TABLET PO SCH (08:41)
[2017-05-15] MEDS: CARVEDILOL 12.5 MG TABLET PO SCH (08:41)
[2017-05-15] MEDS: 0.9 % SODIUM CHLORIDE 10 ML SYRINGE IV SCH ×2 (08:45→11:51)
--- NOTE | 2017-05-15 09:33 | Discharge Summary ---
Medical - DS: Prov Patient information: Note initiated : 05/15/17 at 9:28 am Service Date, if different from initiated Date: [] Patient: Lyubov Brasher 82 y/o F admitted on 05/13/17 for SOB/Hypoxic Respiratory Failure, CHF. Chief Complaint: [] Date of admission: 05/13/17 00:18 Discharge date: 05/15/17 Primary care physician: Todd Guthrie Admitting clinician: Lenore Leon Consults: 05/12/17 Consult to Physician [CONS] Stat Comment: Consulting Provider: Lenore Leon Reason For Exam: Physician to Consult Attending physician on discharge: Lenore Leon Medical - DS: Meds - Discharge Medications Prescriptions: Furosemide [Lasix] 20 mg PO QAM #20 tab Active and Home Medications: Home Medications multivitamin tablet 1 tab PO QDAY tab 12/14/14 [History Confirmed 05/13/17 Last Taken 05/12/17 10:00] budesonide 180 mcg/actuation breath activated powder inhaler 2 inh INHALATION TID 10/09/16 [History Confirmed 05/13/17 Last Taken Unknown] magnesium oxide 400 mg capsule 400 mg PO QDAY cap 11/03/16 [History Confirmed 05/13/17 Last Taken 05/12/17 10:00] carvedilol 25 mg tablet 12.5 mg PO BID 30 Days #30 tab 11/19/16 [Rx Confirmed Last Taken 05/12/17 10:00] metformin 500 mg tablet 500 mg PO BID 30 Days #60 tab 11/19/16 [Rx Confirmed Last Taken 05/12/17 10:00] pramipexole 0.25 mg tablet 0.25 mg PO QHS 90 Days #90 tab 12/01/16 [Rx Confirmed 05/13/17 Last Taken 05/11/17 22:00] digoxin 125 mcg tablet 125 mcg PO QDAY 90 Days #90 tab 12/08/16 [Rx Confirmed Last Taken 05/12/17 10:00] fluticasone 250 mcg-salmeterol 50 mcg/dose blistr powdr for inhalation 1 inh INHALATION Q12H 02/02/17 [History Confirmed 05/14/17 Last Taken 05/12/17 10:00] levalbuterol HFA 45 mcg/actuation aerosol inhaler 45 mcg INHALATION QID g 02/02 [History Confirmed 05/14/17 Last Taken Unknown] sucralfate 1 gram tablet 2 g PO BID 30 Days #120 tab 02/11/17 [Rx Confirmed Last Taken 05/12/17 10:00] montelukast 10 mg tablet 10 mg PO QHS 90 Days #90 tab 02/23/17 [Rx Confirmed Last Taken 05/11/17 22:00] nystatin 100,000 unit/gram topical powder 1 applic TOPICAL BID #60 each [Rx Confirmed 05/14/17 Last Taken Unknown] sodium chloride 1 gram tablet 1 g PO QDAY #90 tab 03/29/17 [Rx Confirmed Last Taken 05/12/17 10:00] insulin detemir 100 unit/mL subcutaneous solution See Label Instructions SUB-Q BID 90 Days #45 ml 04/14/17 [Rx Confirmed 05/14/17 Last Taken Unknown] tramadol 50 mg tablet 50 mg PO Q6H PRN #360 tab 04/19/17 [Rx Confirmed 05/13/17 Last Taken 05/12/17 14:00] lisinopril 2.5 mg tablet 2.5 mg PO QDAY #90 tab 05/01/17 [Rx Confirmed 05/13/17 Last Taken 05/12/17 10:00] Docusate Sodium [Dok] 100 mg PO DAILY 05/13/17 [History Confirmed 05/13/17 Last Taken Unknown] Furosemide [Lasix] 20 mg PO QPM 05/13/17 [History Confirmed 05/13/17 Last Taken 05/12/17 16:00] Furosemide [Lasix] 40 mg PO QAM 05/13/17 [History Confirmed 05/13/17 Last Taken 05/12/17 10:00] Gabapentin [Neurontin] 100 mg PO BID 05/13/17 [History Confirmed 05/13/17 Last Taken 05/12/17 14:00] Gabapentin [Neurontin] 300 mg PO HS 05/13/17 [History Confirmed 05/13/17 Last Taken 05/11/17 22:00] Pantoprazole [Protonix] 40 mg PO HS 05/13/17 [History Confirmed 05/13/17 Last Taken 05/12/17 22:00] Warfarin [Coumadin] 2 mg PO MO@1400 05/13/17 [History Confirmed 05/13/17 Last Taken Unknown] Warfarin [Coumadin] 3 mg PO SUTUWETHFRSA@1400 05/13/17 [History Confirmed Last Taken Unknown] Insulin Lispro [Humalog] See Label Instructions SUB-Q ACHS 05/14/17 [History Confirmed 05/14/17 Last Taken Unknown] Medical - DS: Hosp Hospital course: Follow up issues: 1. Recommend BMP in one week to assess K, Cr and Na. 2. Follow up CXR recommended to ensure resolution of RML infiltrate Lyubov is a pleasant 82-year-old female with a history of morbid obesity, chronic lymphedema, asthma, obstructive sleep apnea on CPAP, A. fib on warfarin and digoxin and heart failure with preserved ejection fraction who presented with worsening dyspnea 1 month. Her primary care provider had attempted to increase her home Lasix, but she had been taking the extra 20 mg separately for several days and forgot to take it the rest of the course. She was admitted and diuresed well with Lasix 40 mg IV. She did not require any potassium supplementation. Despite aggressive diuresis, she continued to need supplemental oxygen at night, with activity and at times with rest. For her acute on chronic hypoxic respiratory failure, home oxygen was ordered and is arranged through [facility] requiring 1 L at rest and 3L is with activity. She is discharged on Lasix 60 mg every morning and the salt tablets on her home medication list have been discontinued. Home health has been arranged for CHF teaching. On the night prior to discharge, she complained of left foot pain consistent with prior gout flare. She was treated with colchicine 1 with improvement of her symptoms. CXR was done on admission which showed a RML infiltrate. She has absolutely no symptoms of pneumonia. ?Asymmetric pulmonary edema. Repeat radiograph is recommended. Discharge diagnosis: Acute on chronic hypoxic respiratory failure Secondary discharge diagnosis: Acute decompensated CHF Abnormal CXR with RML infiltrate w/o clinical s/s of PNA Chronic a fib on warfarin IDDM2 with peripheral neuropathy CKD3 - Time Spent with Patient Total time spent providing and/or coordinating discharge services: Medical - DS: Exam - Constitutional Vitals: Vital Signs Temp Pulse Resp BP Pulse Ox 05/15/17 07:11 98.7 F 16 154/67 94 05/15/17 03:55 113/81 97 05/15/17 03:54 59/45 95 05/15/17 00:12 98.6 F 18 147/61 98 05/14/17 20:33 97 05/14/17 20:00 97.8 F 66 20 145/51 99 05/14/17 16:50 98 05/14/17 15:46 97.8 F 68 18 140/71 100 05/14/17 12:27 97 05/14/17 12:01 99.2 F H 67 20 148/59 95 05/14/17 09:34 164/60 92 Intake and Output 05/14/17 05/15/17 05/15/17 21:59 05:59 13:59 Intake Total 720 / 720 360 / 360 Output Total 1200 / 1200 575 / 575 275 / 275 Balance -480 / -480 -575 / -575 85 / 85 Intake: Oral 720 / 720 360 / 360 Output: Void Amount 1200 / 1200 575 / 575 275 / 275 Other: Meal Dinner Breakfast Percent of Meal Consumed 75% 100% Feeding Ability Independent # Bowel Movements 1 Weight 279 lb 12.8 oz Additional comments: General:NAD. CV: Irregularly irregular. Respiratory: No acute respiratory distress. No wheezing; no crackles. Abdomen: Obese, nondistended, nontender. Positive bowel tones Extremities: No clubbing or cyanosis. She has 3+ edema of her bilateral lower extremities. Skin: Warm and dry. Xerosis Neuro: Alert and oriented 3. Cranial nerves II through XII are intact. She has no focal motor or sensory deficits Psych: Normal mood and affect. Medical - DS: Data Labs on day of discharge: Labs from last 24 hours 05/15/17 05/15/17 05/15/17 04:00 04:00 04:00 WBC 6.7 RBC 3.39 L Hgb 10.5 L Hct 31.8 L MCV 93.8 MCH 31.1 MCHC 33.1 RDW 15.1 H Plt Count 218 MPV 8.7 Total Counted 100 Seg Neutrophils % 52 Band Neutrophils % 1 Lymphocytes % 27 Monocytes % (Manual) 16 H Eosinophils % (Manual) 3 Basophils % (Manual) 1 Platelet Estimate Normal RBC Morphology Abnorm A Anisocytosis 1+ A PT 30.4 H INR 2.8 H Sodium 138 Potassium 4.4 Chloride 95 L Carbon Dioxide 32 H Anion Gap 11.0 BUN 30 H Creatinine 1.5 H GFR Calculation 32 Glucose 93 Calcium 9.6 Total Bilirubin 0.5 AST 18 ALT 13 Alkaline Phosphatase 63 Total Protein 7.4 Albumin 2.8 L Globulin 4.6 H Albumin/Globulin Ratio 0.6 L Preliminary micro results at discharge 05/12/17 20:38 Blood Culture - Preliminary Blood 05/12/17 21:02 Blood Culture - Preliminary Blood Medical - DS: A/P - Patient/Caregiver Discharge Instructions Activity: as per physical therapy Diet: Low Sodium (2gm), Consistent Carbohydrate Additional Instructions: 1. Go home today and weigh yourself. This is your baseline weight. If your weight increases by 5 pounds or more in one day, call your primary care doctor to adjust your Lasix dose. Home health nursing has been arranged to help manage your CHF. 2. Get a home pulse oximeter. Your goal oxygen saturation is 90% or greater. If you are resting and your saturations are adequate, you can take a break from the oxygen. 3. Ask Dr. Guthrie to order lab work in one week to check your potassium, sodium and kidney function. 4. Your home medication list indicates you were on salt tablets. Please take these out of your bubble packs and stop taking them. These can increase fluid retention. 5. You had a slightly abnormal chest xray this admission. Please ask Dr. Guthrie to repeat the chest xray in 4 weeks to ensure the abnormality has resolved. - Follow up Plan Follow up with: Todd Guthrie MD [Primary Care Provider] - 05/19/17 2:15 pm (Check in at 2:00) Disposition: Home Health Service Prognosis: Fair Rehab Potential: Good I certify that the patient requires SNF services: No Overall status at discharge: patient is back to baseline Medical - DS: Qual - VTE Deep Vein Thrombosis/Pulmonary Embolism Present on Admission: No
[2017-05-15] MEDS: BUDESONIDE 1 PUFF INHALER INH SCH (09:47)
[2017-05-15] MEDS: GABAPENTIN 100 MG CAPSULE PO SCH (09:58)
[2017-05-15] MEDS ORDERED: HEPARIN SODIUM,PORCINE/PF 500 UNIT/5 ML SYRINGE IV ONE (11:35)
[2017-05-15] MEDS ORDERED: WARFARIN 1 MG TABLET PO ONE (14:00)
[2017-05-17] MEDS ORDERED: WARFARIN 2 MG TABLET PO SCH (14:00)
== END 2017-05-15 12:40 | disposition home health service (06) | DRG 189 ==
LOC: ICU 19:45 → ED 19:45 → OBSVTOIN 05-13 00:18 → ED 05-13 00:27
PROVIDERS: ADMIT Internal Medicine; ATTEND Internal Medicine

== ENCOUNTER 2017-08-30 15:47 | Inpatient (IN) ==
--- NOTE | 2017-08-30 16:41 | Emergency Department Note ---
Abdominal Pain HPI - General Chief Complaint: Abdominal Pain Stated Complaint: abd pain, tremors Time Seen by Provider: 08/30/17 16:18 Source: patient, family Mode of arrival: wheelchair Limitations: physical limitation - History of Present Illness HPI Narrative: Patient had a fever at the care home, 100.1 apparently was doing well yesterday, participating in physical therapy, recovering from bilateral pneumonia that she had in July. She was in the hospital for a prolonged period of time, finished her antibiotics 2 days ago at the care home, currently is at the care home recovering from her pneumonia. Wishes to get back home. Today she notes some tremors of her hands and arms mainly in the tremors seemed to come and go. No focal weakness but generalized weakness, she tells me she generally does not feel well. She feels weaker today than yesterday. Still has a slight cough, nonproductive, had some abdominal pain earlier today which went away, she denies any diarrhea, pain was mostly in the left lower quadrant of the abdomen. Generally does not feel well. MD Complaint: abdominal pain - Related Data Home Medications Medication Instructions Recorded Confirmed Budesonide [Pulmicort] 1 mg IH TID 08/30/17 08/30/17 Carvedilol [Coreg] 12.5 mg PO BIDCC 08/30/17 08/30/17 Diclofenac Sodium [Voltaren] 120 gm TP BID 08/30/17 08/30/17 Digoxin [Lanoxin] 125 mcg PO DAILY 08/30/17 08/30/17 Docusate Sodium [Colace] 100 mg PO BID 08/30/17 08/30/17 Fluticasone/Salmeterol [Advair 1 puff INH BID 08/30/17 08/30/17 250-50 Diskus] Furosemide [Lasix] 60 mg PO DAILY 08/30/17 08/30/17 Gabapentin [Neurontin] 300 mg PO BID 08/30/17 08/30/17 Gabapentin [Neurontin] 900 mg PO HS 08/30/17 08/30/17 Hydrocodone/APAP 7.5/325Mg [[place] 1 - 2 tab PO Q4HP PRN 08/30/17 08/30/17 7.5-325Mg] Insulin Detemir [Levemir] 30 unit SQ HS 08/30/17 08/30/17 Insulin Detemir [Levemir] 35 unit SQ DAILY 08/30/17 08/30/17 Levalbuterol [Xopenex] 1.25 mg NEB TID 08/30/17 08/30/17 Montelukast Sodium [Singulair] 10 mg PO DAILY 08/30/17 08/30/17 Ondansetron HCl [Zofran] 4 mg PO Q4-6H PRN 08/30/17 08/30/17 Pantoprazole [Protonix] 40 mg PO QAMAC 08/30/17 08/30/17 Pramipexole [Mirapex] 0.125 mg PO HS 08/30/17 08/30/17 Sennosides [Senna Lax] 8.6 mg PO DAILY 08/30/17 08/30/17 Sucralfate [Carafate] 1 gm PO BID 08/30/17 08/30/17 Warfarin [Coumadin] 3 mg PO DAILY 08/30/17 08/30/17 Warfarin [Coumadin] 4 mg PO DAILY 08/30/17 08/30/17 guaiFENesin [Guaifenesin] 400 mg PO QIDP PRN 08/30/17 08/30/17 traMADol HCL [Ultram] 50 mg PO BID 08/30/17 08/30/17 Previous Rx's Medication Instructions Recorded insulin aspart U-100 100 unit/mL See Label Instructions SUB-Q 07/14/17 subcutaneous solution .COMPLEX #30 ml pen needle, diabetic 32 gauge x See Dose Instructions .ROUTE 08/04/17 1/4" .MEDSUPPLY #100 each Allergies Allergy/AdvReac Type Severity Reaction Status Date / Time pregabalin [From Lyrica] Allergy Severe Swelling Verified 08/12/17 09:46 of Lip/Tongue/Throat nitrofurantoin Allergy Mild Blister Verified 08/12/17 09:46 [From Macrodantin] Band-Aid AdvReac Mild Blister Uncoded 07/28/17 14:42 Review of Systems Constitutional: Reports: fever, chills, weakness Eyes: Denies: eye pain ENT ED: Denies: ear pain, throat pain, dental pain, hearing loss Cardiovascular: Reports: palpitations, other (history of A. fib). Denies: chest pain Respiratory: Reports: shortness of breath, cough, wheezes, phlegm Gastrointestinal: Reports: abdominal pain. Denies: nausea, vomiting Genitourinary: Denies: dysuria, urgency Neurological: Reports: weakness. Denies: headache Endocrine: Reports: fatigue Allergic/Immunologic: Denies: facial swelling Abdominal Pain PMH - Past Medical History Attestation: Yes: The following information was validated with the patient. Medical history: Reports: arthritis, asthma, atrial fibrillation, cancer, CHF, COPD, dementia, DM, hyperlipidemia, hypertension, obesity, renal disease Surgical history ED: Reports: non-contributory Psychiatric history: Reports: no psych history FINANCIAL CONSULTANT history: Reports: non-contributory Family history: Reports: non-contributory - Social History Smoking status: Never smoker Alcohol use: Reports: None Drug use: Reports: none Physical Exam Limitations: physical limitation General appearance: alert, in no apparent distress Head: atraumatic, normocephalic Eye: Present: normal appearance, PERRL, EOMI ENT: normal exam, mucous membranes dry, TM's normal bilaterally, normal external ear exam Neck: Present: normal inspection, full ROM, trachea midline. Absent: tenderness , meningismus, lymphadenopathy, thyromegaly Chest: Present: normal inspection, symmetric chest wall rise. Absent: tenderness Respiratory: Present: normal lung sounds bilaterally. Absent: respiratory distress, wheezes, stridor, accessory muscle use Cardiovascular: Present: irregular rhythm, systolic murmur Abdominal: Present: soft, normal bowel sounds. Absent: distention, tenderness, guarding, rebound Extremities: Present: full ROM, pedal edema, other (Generally weak in all fours. ) Back: Present: normal inspection. Absent: CVA tenderness (R), CVA tenderness (L ), paraspinal tenderness, vertebral tenderness Neurological: Present: alert, other (weak in all fours. No obvious tremors.). Absent: motor sensory deficit Psychiatric: Present: depressed Skin: Present: warm, dry, intact Course Vital Signs Temperature 98.4 F 08/30/17 15:47 Pulse Rate 86 08/30/17 15:47 Respiratory Rate 20 08/30/17 15:47 Blood Pressure 149/85 08/30/17 15:47 Pulse Oximetry (%) 93 08/30/17 15:47 Temperature 99.1 F H 08/30/17 18:09 Pulse Rate 81 03/05/18 17:31 Respiratory Rate 23 H 08/30/17 17:31 Blood Pressure 155/74 08/30/17 17:31 Pulse Oximetry (%) 96 08/30/17 17:31 Abdominal Pain - MDM Narrative Medical decision making narrative: chest x-ray showing bilateral pneumonia, likely persistent versus recurrent aspiration. Plan is hospital admission at this point, she is hypoxic, two-week to stand. Discussed with Dr. Wilmar Sam Lab Data Result diagrams: 08/30/17 16:49 08/30/17 16:48 Lab Results 08/30/17 08/30/17 08/30/17 Range/Units 16:48 16:49 16:49 WBC 12.2 H (4.5-11.0) K/mcL RBC 3.36 L (4.00-5.20) M/mcL Hgb 9.9 L (12.0-15.0) g/dL Hct 30.2 L (36.0-48.0) % MCV 89.9 (80.0-100.0) fL MCH 29.6 (26.0-34.0) pg MCHC 32.9 (31.0-36.0) g/dL RDW 17.7 H (11.5-14.5) % Plt Count 301 (140-440) K/mcL MPV 9.0 (7.4-10.4) fL Gran % 80.5 H (38.0-78.0) % Lymph % (Auto) 14.3 L (15.5-49.0) % [place] % (Auto) 3.4 (1.0-12.0) % Eos % (Auto) 1.6 (0.0-7.0) % Baso % (Auto) 0.2 (0.0-2.0) % Gran # 9.8 H (1.8-8.0) K/mcL Lymph # (Auto) 1.7 (1.5-4.8) K/mcL [place] # (Auto) 0.4 (0.1-0.9) K/mcL Eos # (Auto) 0.2 (0.0-0.7) K/mcL Baso # (Auto) 0 (0.0-0.3) K/mcL ESR 99 H (0-20) mm/hr PT 35.3 H (11.9-14.5) sec INR 3.5 H (0.9-1.1) VBG Lactic Acid (0.5-2.2) mmol/L Sodium 134 (133-145) mmol/L Potassium 4.4 (3.3-5.1) mmol/L Chloride 90 L (96-108) mmol/L Carbon Dioxide 32 H (22-30) mmol/L Anion Gap 12.0 (8-16) BUN 22 (8-23) mg/dl Creatinine 1.5 H (0.6-1.1) mg/dl GFR Calculation 32 Glucose 139 H (70-105) mg/dL Calcium 9.6 (8.6-10.4) mg/dl Total Bilirubin 0.5 (0.0-1.0) mg/dL AST 14 (0-37) U/l ALT 12 (0-40) U/l Alkaline Phosphatase 67 (39-117) U/L C-Reactive Protein 3.1 H (0.0-0.8) mg/dl Total Protein 7.5 (5.9-8.4) gm/dL Albumin 3.2 (3.2-5.2) gm/dL Globulin 4.3 H (2.2-3.7) gm/dL Albumin/Globulin Ratio 0.7 L (1.0-2.3) Urine Color Urine Appearance Urine pH (5.0-9.0) Ur Specific [place] (1.000-1.035) Urine Protein (NEG) mg/dL Urine Glucose (UA) (NEG) mg/dL Urine Ketones (NEG) mg/dL Urine Occult Blood (<0.03) mg/dL Urine Nitrate (NEG) Urine Bilirubin (NEG) mg/dL Urine Urobilinogen (NEG) mg/dL Ur Leukocyte Esterase (NEG) /uL Urine RBC (0-1) /hpf Urine WBC (0-4) /hpf Ur Squamous Epith Cells (0-4) /hpf Urine Bacteria (0) /hpf Urine Mucus (0) /hpf Ur Culture Indicated? 08/30/17 08/30/17 Range/Units 16:55 17:05 WBC (4.5-11.0) K/mcL RBC (4.00-5.20) M/mcL Hgb (12.0-15.0) g/dL Hct (36.0-48.0) % MCV (80.0-100.0) fL MCH (26.0-34.0) pg MCHC (31.0-36.0) g/dL RDW (11.5-14.5) % Plt Count (140-440) K/mcL MPV (7.4-10.4) fL Gran % (38.0-78.0) % Lymph % (Auto) (15.5-49.0) % [place] % (Auto) (1.0-12.0) % Eos % (Auto) (0.0-7.0) % Baso % (Auto) (0.0-2.0) % Gran # (1.8-8.0) K/mcL Lymph # (Auto) (1.5-4.8) K/mcL [place] # (Auto) (0.1-0.9) K/mcL Eos # (Auto) (0.0-0.7) K/mcL Baso # (Auto) (0.0-0.3) K/mcL ESR (0-20) mm/hr PT (11.9-14.5) sec INR (0.9-1.1) VBG Lactic Acid 1.0 (0.5-2.2) mmol/L Sodium (133-145) mmol/L Potassium (3.3-5.1) mmol/L Chloride (96-108) mmol/L Carbon Dioxide (22-30) mmol/L Anion Gap (8-16) BUN (8-23) mg/dl Creatinine (0.6-1.1) mg/dl GFR Calculation Glucose (70-105) mg/dL Calcium (8.6-10.4) mg/dl Total Bilirubin (0.0-1.0) mg/dL AST (0-37) U/l ALT (0-40) U/l Alkaline Phosphatase (39-117) U/L C-Reactive Protein (0.0-0.8) mg/dl Total Protein (5.9-8.4) gm/dL Albumin (3.2-5.2) gm/dL Globulin (2.2-3.7) gm/dL Albumin/Globulin Ratio (1.0-2.3) Urine Color Straw Urine Appearance Clear Urine pH 8.0 (5.0-9.0) Ur Specific [place] 1.008 (1.000-1.035) Urine Protein 100 A (NEG) mg/dL Urine Glucose (UA) Negative (NEG) mg/dL Urine Ketones Neg (NEG) mg/dL Urine Occult Blood Neg (<0.03) mg/dL Urine Nitrate Neg (NEG) Urine Bilirubin Neg (NEG) mg/dL Urine Urobilinogen Neg (NEG) mg/dL Ur Leukocyte Esterase Neg (NEG) /uL Urine RBC 1 (0-1) /hpf Urine WBC < 1 (0-4) /hpf Ur Squamous Epith Cells 0 (0-4) /hpf Urine Bacteria 0 (0) /hpf Urine Mucus Few (0) /hpf Ur Culture Indicated? No Disposition Pt seen by [facility]/PA only: No Clinical Impression: Pneumonia Disposition: Xfer As Inpt ([facility]) Condition: Fair Referrals: Todd Guthrie MD [Primary Care Provider] -
[2017-08-30] MEDS ORDERED: LACTATED RINGERS 1,000 ML IV ONE (16:44)
[2017-08-30] MEDS ORDERED: ACETAMINOPHEN 325 MG TABLET PO ONE (16:45)
[2017-08-30 17:15] LABS: Basophils # (Auto) 0 K/mcL (0.0-0.3); Basophils % (Auto) 0.2 % (0.0-2.0); Eosinophils # (Auto) 0.2 K/mcL (0.0-0.7); Eosinophils % (Auto) 1.6 % (0.0-7.0); Granulocytes % (Auto) 80.5 % (38.0-78.0); Lymphocytes # (Auto) 1.7 K/mcL (1.5-4.8); Lymphocytes % (Auto) 14.3 % (15.5-49.0); Mean Cell Volume 89.9 fL (80.0-100.0); Mean Corpuscular HGB Conc 32.9 g/dL (31.0-36.0); Mean Corpuscular Hemoglobin 29.6 pg (26.0-34.0); Monocytes # (Auto) 0.4 K/mcL (0.1-0.9); Monocytes % (Auto) 3.4 % (1.0-12.0); Platelet Count 301 K/mcL (140-440); RBC 3.36 M/mcL (4.00-5.20); Red Cell Distribution Width 17.7 % (11.5-14.5)
--- NOTE | 2017-08-30 17:20 | XRay Report ---
HISTORY: Reason for Exam:FEVER FINDINGS: There are mild generalized alveolar infiltrates throughout both lungs with the greatest involvement around the lower [place] bilaterally. There was greater consolidation around the lower [place] on the prior x-ray done on 08/12/17. The heart remains moderately enlarged. Contour of the right diaphragm suggestive there may be a small subpulmonic pleural effusion. The Port-A-Cath remains well-positioned. IMPRESSION: Persistent bilateral pulmonary infiltrates. This could be due to pneumonia or congestive heart failure. Interpreted and Authenticated by: Ortega Merchant 08/30/17
[2017-08-30 17:35] LABS: ALT/SGPT 12 U/l (0-40); Albumin 3.2 gm/dL (3.2-5.2); Albumin/Globulin Ratio 0.7 (1.0-2.3); Alkaline Phosphatase 67 U/L (39-117); Blood Urea Nitrogen 22 mg/dl (8-23); C-Reactive Protein 3.1 mg/dl (0.0-0.8)
[2017-08-30 17:47] LABS: Appearance,Urine CLEAR; Bacteria,Urine 0 /hpf (0); Bilirubin,Urine NEG (NEG); Color,Urine STRAW; Glucose,Urine (UA) NEGATIVE (NEG); Leukocyte Esterase,Urine NEG /uL (NEG); Mucus,Urine FEW /hpf (0); Protein,Urine 100 mg/dL (NEG); Specific Gravity,Urine 1.008 (1.000-1.035); Urine Blood NEG mg/dL (<0.03); Urine RBC 1 /hpf (0-1); Urine Squamous Epithelial Cell 0 /hpf (0-4); Urine WBC < 1 /hpf (0-4); Urobilinogen,Urine NEG (NEG)
[2017-08-30 17:59] LABS: Erythrocyte Sedimentation Rate 99 mm/hr (0-20)
[2017-08-30] MEDS ORDERED: VANCOMYCIN 1,000 MG in 0.9 % SODIUM CHLORIDE 250 ML IV ONE (18:10)
[2017-08-30] MEDS ORDERED: PIPERACILLIN SODIUM/TAZOBACTAM 3.375 GM in DEXTROSE 5% IN WATER 50 ML IV ONE (18:11)
--- NOTE | 2017-08-30 19:11 | Internal Med History&Physical ---
Medical - H&P: HPI Patient information: Note initiated : 08/30/17 at 7:07 pm Service Date, if different from initiated Date: [] Patient: Lyubov Brasher 82 y/o F admitted on for abd pain, tremors. Chief Complaint: [] History of present illness: Ms. Brasher is a 82 year old Female with multiple medical issues, recently discharged from [facility] to custodial for pneumonia, presents to the hospital today with complaints of not feeling well for 1 day. She has been accompanied by her the patient was diagnosed with pneumonia on the 13 of August, the patient was admitted at [facility] and stayed there for approximately one month. The patient was subsequently discharged to a custodial. The patient was on oral antibiotics and finished the last dose couple of days ago. According to the patient as well as the the patient was doing well and participating in therapy. This morning when the patient's saw the patient the patient was not feeling so well, the patient reported that she was fatigued, tired and had chills all over the body. She had decreased effort tolerance and was not able to participate in therapy today. Patient had a fever and was therefore sent to the hospital for further evaluation. The patient in the emergency room denied any acute complaints. The patient has cough which she believes is chronic, she notes that she had some shaking early on which is now resolved, the patient otherwise denies any headache, no changes in vision or hearing no difficulty in swallowing, she does have history of acid reflux. She has shortness of breath on exertion, she does have some cough no sputum at this point. She denies any chest pain. No abdominal symptoms like abdominal pain nausea vomiting constipation or diarrhea. No symptoms. No worsening swelling in the legs, no skin rashes no new joint pain. She denies any acute depression or anxiety. In the emergency room the patient was febrile with a temperature max of 101. The patient's chest x-ray showed pneumonia slightly better than the last time. May be CHF. Patient has leukocytosis on labs, elevatedESR at 99. Chemistry shows creatinine of 1.5 which is stable for her. Lactic acid is normal. Patient has increased oxygen requirement baseline oxygen requirements on 1-2 liters via nasal cannula, in the emergency room she needed up to 4 L. The patient is being admitted to the hospital for further management All systems: reviewed and no additional remarkable complaints except as stated ( see HPI) Medical - H&P: PMH Medical history: Medical History (Last Reviewed 07/30/17 @ 10:39 by Priscilla Wright DO) UTI (urinary tract infection) (Acute) Gastritis (Acute) Allergic reaction (Acute) Strain of lumbar region (Acute) Liver disease, unspecified (Acute) Bronchitis, acute (Acute) CHF, acute (Acute) Chronic renal insufficiency (Chronic) Senile dementia (Chronic) Gastric lymphoma (Chronic) Pancreatic cyst (Ruled-out) Acute gastric ulcer (Acute) Pneumonia involving right lung (Acute) Pleurisy (Acute) Osteoarthrosis, wrist (Acute) Bilateral myofascial pain (Acute) Neuralgia (Acute) Abdominal pain (Acute) Anticoagulant long-term use (Acute) Waldenstroms macroglobulinemia (Acute) Sepsis (Acute) Rhinitis, allergic (Acute) Pneumonia (Acute) Pancytopenia (Acute) Morbid obesity (Acute) Monoclonal gammopathy (Acute) Low back pain (Acute) Hypertension, essential (Acute) Hyperlipidemia (Acute) Diastolic heart failure (Acute) Diabetes mellitus, type II (Acute) CHF (congestive heart failure) (Acute) COPD (chronic obstructive pulmonary disease) (Acute) Bacteremia (Acute) Atrial fibrillation (Acute) Asthma (Acute) Apnea (Acute) Acute kidney injury (nontraumatic) (Acute) Surgical history: Past Surgical History (Last Reviewed 05/27/17 @ 11:00 by Pam Joseph CMA) Status post peripherally inserted central catheter (PICC) central line placement (Acute 09/24/14) History of hysterectomy (Acute) History of esophagogastroduodenoscopy (Acute 11/09/14) History of cholecystectomy (Acute) History of bone marrow biopsy (Acute 06/06/14) History of back surgery (Acute) Pertinent family history: Family History (Last Reviewed 05/27/17 @ 11:00 by Pam Joseph CMA) Sister Family history of malignant neoplasm of breast Brother Family history of malignant neoplasm of prostate Father Family history of malignant neoplasm of trachea, bronchus, and lung Mother History of malignant neoplasm History of myocardial infarction Medical - H&P: Meds Home Medications Medication Instructions Recorded Confirmed Type insulin aspart U-100 100 unit/mL See Label Instructions SUB-Q 07/14/17 Rx subcutaneous solution .COMPLEX #30 ml pen needle, diabetic 32 gauge x See Dose Instructions .ROUTE 08/04/17 Rx 1/" .MEDSUPPLY #100 each Budesonide [Pulmicort] 1 mg IH TID 08/30/17 08/30/17 History Carvedilol [Coreg] 12.5 mg PO BIDCC 08/30/17 08/30/17 History Diclofenac Sodium [Voltaren] 120 gm TP BID 08/30/17 08/30/17 History Digoxin [Lanoxin] 125 mcg PO DAILY 08/30/17 08/30/17 History Docusate Sodium [Colace] 100 mg PO BID 08/30/17 08/30/17 History Fluticasone/Salmeterol [Advair 1 puff INH BID 08/30/17 08/30/17 History 250-50 Diskus] Furosemide [Lasix] 60 mg PO DAILY 08/30/17 08/30/17 History Gabapentin [Neurontin] 300 mg PO BID 08/30/17 08/30/17 History Gabapentin [Neurontin] 900 mg PO HS 08/30/17 08/30/17 History Hydrocodone/APAP 7.5/325Mg [Burke 1 - 2 tab PO Q4HP PRN 08/30/17 08/30/17 History 7.5-325Mg] Insulin Detemir [Levemir] 30 unit SQ HS 08/30/17 08/30/17 History Insulin Detemir [Levemir] 35 unit SQ DAILY 08/30/17 08/30/17 History Levalbuterol [Xopenex] 1.25 mg NEB TID 08/30/17 08/30/17 History Montelukast Sodium [Singulair] 10 mg PO DAILY 08/30/17 08/30/17 History Ondansetron HCl [Zofran] 4 mg PO Q4-6H PRN 08/30/17 08/30/17 History Pantoprazole [Protonix] 40 mg PO QAMAC 08/30/17 08/30/17 History Pramipexole [Mirapex] 0.125 mg PO HS 08/30/17 08/30/17 History Sennosides [Senna Lax] 8.6 mg PO DAILY 08/30/17 08/30/17 History Sucralfate [Carafate] 1 gm PO BID 08/30/17 08/30/17 History Warfarin [Coumadin] 3 mg PO DAILY 08/30/17 08/30/17 History Warfarin [Coumadin] 4 mg PO DAILY 08/30/17 08/30/17 History guaiFENesin [Guaifenesin] 400 mg PO QIDP PRN 08/30/17 08/30/17 History traMADol HCL [Ultram] 50 mg PO BID 08/30/17 08/30/17 History Allergies Allergy/AdvReac Type Severity Reaction Status Date / Time pregabalin [From Lyrica] Allergy Severe Swelling Verified 08/12/17 09:46 of Lip/Tongue/Throat nitrofurantoin Allergy Mild Blister Verified 08/12/17 09:46 [From Macrodantin] Band-Aid AdvReac Mild Blister Uncoded 07/28/17 14:42 Medical - H&P: Exam - Constitutional Vitals: Temp Pulse Resp BP Pulse Ox 99.1 F H 76 22 150/77 95 08/30/17 18:09 08/30/17 18:46 08/30/17 18:46 08/30/17 18:46 08/30/17 18:46 Exam: GENERAL: The patient is a well-developed, well-nourished in no apparent distress. Is alert and oriented x3.moderately obese VITAL SIGNS: Reviewed and as noted elsewhere. HEENT: Head is normocephalic and atraumatic. Extraocular muscles are intact. Pupils are equal, round, and reactive to light. Nares appeared normal. Mouth appears any without lesions. Mucous membranes are moist. patient has blue color hair dye NECK: Normal to inspection, Supple, No lymphadenopathy or thyromegaly.short neck LUNGS: Air entry equal on both sides, no wheezing, crackles or rhonchi noted. No accessory muscles of respiration HEART: Regular rate and rhythm irregular, S1 and S2 heard, no Gallop, S3 or Rub Noted, No Gross murmur heard. ABDOMEN: Soft, nontender, and nondistended. Positive bowel sounds. No hepatosplenomegaly was noted. large pannus prohibits good exam EXTREMITIES: No cyanosis, clubbing, rash, lesions , edema lower extremity +2 NEUROLOGIC: Cranial nerves II through XII are grossly intact. Motor and Sensory System Grossly Intact PSYCHIATRIC: Normal affect, Normal Mood. Appropriate Behavior. SKIN: No ulceration or wounds noted, No jaundice, No rash noted. Medical - H&P: Reslt - Labs CBC & Chem 7: 08/30/17 16:49 08/30/17 16:48 Labs: Short CBC 08/30/17 Range/Units 16:49 WBC 12.2 H (4.5-11.0) K/mcL Hgb 9.9 L (12.0-15.0) g/dL Hct 30.2 L (36.0-48.0) % Plt Count 301 (140-440) K/mcL BMP 08/30/17 16:48 Sodium 134 Potassium 4.4 Chloride 90 L Carbon Dioxide 32 H BUN 22 Creatinine 1.5 H Glucose 139 H Calcium 9.6 Liver Function 08/30/17 Range/Units 16:48 Total Bilirubin 0.5 (0.0-1.0) mg/dL AST 14 (0-37) U/l ALT 12 (0-40) U/l Alkaline Phosphatase 67 (39-117) U/L Albumin 3.2 (3.2-5.2) gm/dL Urine 08/30/17 Range/Units 16:55 Urine Color Straw Urine Appearance Clear Urine pH 8.0 (5.0-9.0) Ur Specific [place] 1.008 (1.000-1.035) Urine Protein 100 A (NEG) mg/dL Urine Glucose (UA) Negative (NEG) mg/dL Medical - H&P: A/P - Narrative A/P Narrative: A/P Acute on chr resp failure Health care associated pneumonia Sepsis/ SIRS h/o CHF Chronic Kidney disease stage 3 Morbid Obesity Diabetes , on insulin Atrial Fibrillation HYpertension Hyperlipidemia COPD h/o waldonstroms macroglobinemia 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 Lantus, ssi for glucose control, Resume home medications for blood presssure DUonebs q6hr mohit, no wheezing, no e/o copd exacerbation OT/PT rehab DNR code status, ok to intubate if needed Cardiac, diabetic diet Social History - Tobacco smoking status: Never smoker - Alcohol alcohol intake frequency: does not drink
[2017-08-30] MEDS ORDERED: ONDANSETRON 4 MG/2 ML VIAL IV PRN (20:10)
[2017-08-30] MEDS ORDERED: oxyCODONE HCL 5 MG TABLET PO PRN (20:10)
[2017-08-30] MEDS ORDERED: VANCOMYCIN PER PHARMACY IV SCH (20:10)
[2017-08-30] MEDS ORDERED: NALOXONE HCL 0.4 MG/ML VIAL IV PRN (20:10)
[2017-08-30] MEDS ORDERED: ACETAMINOPHEN 325 MG TABLET PO PRN (20:10)
[2017-08-30] MEDS ORDERED: DEXTROSE 50% 50 ML VIAL IV PRN (20:10)
[2017-08-30] MEDS ORDERED: DEXTROSE 31 GM ORAL.SUSP PO PRN (20:10)
[2017-08-30] MEDS ORDERED: 0.9 % SODIUM CHLORIDE 1,000 ML IV SCH (20:10)
[2017-08-30] MEDS ORDERED: guaiFENesin 600 MG TAB.SR.12H PO PRN (20:18)
[2017-08-30] MEDS ORDERED: DOCUSATE SODIUM 100 MG PO SCH (21:00)
[2017-08-30] MEDS: SUCRALFATE 1 GM TABLET PO SCH (22:14)
[2017-08-30] MEDS: DOCUSATE SODIUM 100 MG CAPSULE PO SCH (22:16)
[2017-08-30] MEDS: traMADol 50 MG TABLET PO SCH (22:16)
[2017-08-30] MEDS: PRAMIPEXOLE 0.25 MG TABLET PO SCH (22:16)
[2017-08-30] MEDS: INSULIN LISPRO 1 UNIT/0.01 ML UNIT SQ SCH (22:18)
[2017-08-30] MEDS: INSULIN GLARGINE, HUMAN 1 UNIT/0.01 ML SQ SCH (22:18)
[2017-08-30] MEDS: GABAPENTIN 300 MG CAPSULE PO SCH (22:19)
[2017-08-30] MEDS: 0.9 % SODIUM CHLORIDE 10 ML SYRINGE IV SCH (22:19)
[2017-08-30] MEDS: FLUTICASONE/SALMETEROL 250/50 INHALER #14 INH SCH (22:21)
[2017-08-30] MEDS: IPRATROPIUM/ALBUTEROL 3 ML AMPUL.NEB NEB SCH (22:51)
[2017-08-31] MEDS: PIPERACILLIN SODIUM/TAZOBACTAM 3.375 GM in DEXTROSE 5% IN WATER 50 ML IV SCH ×4 (00:43→22:32)
[2017-08-31] MEDS: IPRATROPIUM/ALBUTEROL 3 ML AMPUL.NEB NEB SCH ×4 (01:56→19:28)
[2017-08-31] MEDS: 0.9 % SODIUM CHLORIDE 10 ML SYRINGE IV SCH ×3 (05:53→20:23)
[2017-08-31 06:09] LABS: Basophils # (Auto) 0 K/mcL (0.0-0.3); Basophils % (Auto) 0.5 % (0.0-2.0); Eosinophils # (Auto) 0.4 K/mcL (0.0-0.7); Eosinophils % (Auto) 4.6 % (0.0-7.0); Granulocytes % (Auto) 70.2 % (38.0-78.0); Lymphocytes # (Auto) 1.3 K/mcL (1.5-4.8); Lymphocytes % (Auto) 16.5 % (15.5-49.0); Mean Cell Volume 90.8 fL (80.0-100.0); Mean Corpuscular HGB Conc 32.7 g/dL (31.0-36.0); Mean Corpuscular Hemoglobin 29.7 pg (26.0-34.0); Monocytes # (Auto) 0.7 K/mcL (0.1-0.9); Monocytes % (Auto) 8.2 % (1.0-12.0); Platelet Count 272 K/mcL (140-440); RBC 3.09 M/mcL (4.00-5.20); Red Cell Distribution Width 16.9 % (11.5-14.5)
[2017-08-31 06:41] LABS: ALT/SGPT 11 U/l (0-40); Albumin 2.7 gm/dL (3.2-5.2); Albumin/Globulin Ratio 0.6 (1.0-2.3); Alkaline Phosphatase 64 U/L (39-117); Bilirubin,Direct < 0.2 mg/dL (0.0-0.3); Blood Urea Nitrogen 23 mg/dl (8-23); Gamma Glutamyl Transpeptidase 33 U/L (5-36); Uric Acid 7.5 mg/dL (2.5-8.0)
[2017-08-31] MEDS: INSULIN LISPRO 1 UNIT/0.01 ML UNIT SQ SCH ×4 (07:21→20:45)
[2017-08-31] MEDS: PANTOPRAZOLE 40 MG TABLET PO SCH (07:26)
--- NOTE | 2017-08-31 08:36 | Cat Scan Report ---
CLINICAL INFORMATION: Pneumonia COMPARISON: Chest x-ray on 08/30/[address] on 10/09/14 TECHNIQUE: 2.5 mm axial slices were obtained from the lung apices through the bases without intravenous contrast. Sagittal, coronal and axial reformatted images were processed and reviewed at bone, lung and soft tissue windows. 7 mm axial MIP images were also reconstructed. FINDINGS: There is a mosaic pattern of groundglass alveolar opacities in both lungs. There is thickening of the interlobular septa within the lung bases. Bands of atelectasis are present posteriorly medially in both lower lobes and adjacent to the major fissure in the posterior segment of the right upper lobe. There are small bilateral layering pleural effusions are present. The heart is moderately enlarged. Mild atherosclerotic coronary artery disease is present. There are small bubbles of air within the right atrium of the heart. This is probably related to an injection through the indwelling Port-A-Cath. The tip of the Port-A-Cath is in the superior vena cava. The aorta is normal in caliber. There are several nonspecific lymph nodes in the mediastinum. The largest are in the pretracheal retrocaval space and measure up to 1.9 cm. They measured up to 12 mm on 10/09/14. Comparison with prior CT done on 10/09/14 shows the groundglass alveolar opacities are worse today than they were previously. The discoid atelectasis is worse and the pleural effusions are new. IMPRESSION: Nonspecific mosaic pattern of groundglass alveolar opacities in both lungs. This may be seen with pulmonary edema, alveolitis or hypersensitivity reaction. Small bilateral layering pleural effusions Bands of discoid atelectasis in both lungs moderate cardiomegaly Nonspecific mediastinal adenopathy Interpreted and Authenticated by: Ortega Merchant 08/31/17
[2017-08-31] MEDS: CARVEDILOL 12.5 MG TABLET PO SCH ×2 (09:08→18:35)
[2017-08-31] MEDS: MONTELUKAST 10 MG TABLET PO SCH (09:37)
[2017-08-31] MEDS: FUROSEMIDE 20 MG TABLET PO SCH (09:37)
[2017-08-31] MEDS: SUCRALFATE 1 GM TABLET PO SCH ×2 (09:38→20:22)
[2017-08-31] MEDS: traMADol 50 MG TABLET PO SCH ×2 (09:39→20:22)
[2017-08-31] MEDS: GABAPENTIN 300 MG CAPSULE PO SCH ×3 (09:40→20:22)
[2017-08-31] MEDS: INSULIN GLARGINE, HUMAN 1 UNIT/0.01 ML SQ SCH ×2 (09:41→20:46)
[2017-08-31] MEDS: DOCUSATE SODIUM 100 MG CAPSULE PO SCH ×2 (09:41→20:22)
[2017-08-31] MEDS: VANCOMYCIN 1,500 MG in 0.9 % SODIUM CHLORIDE 500 ML IV SCH (10:20)
[2017-08-31] MEDS: FLUTICASONE/SALMETEROL 250/50 INHALER #14 INH SCH ×2 (11:24→20:47)
--- NOTE | 2017-08-31 12:37 | Internal Med Progress Note ---
Medical - PN: Subj Patient information: Note initiated : 08/31/17 at 12:32 pm Service Date, if different from initiated Date: [] Patient: Lyubov Brasher 82 y/o F admitted on 08/30/17 for Abd Pain, Tremors/ Pneumonia. Chief Complaint: [] Interval history: Ms. Brasher is a 82 year old Female with multiple medical issues, recently discharged from [facility] to assisted for pneumonia, presents to the hospital today with complaints of not feeling well for 1 day. She has been accompanied by her the patient was diagnosed with pneumonia on the 13 of August, the patient was admitted at [facility] and stayed there for approximately one month. The patient was subsequently discharged to a assisted. The patient was on oral antibiotics and finished the last dose couple of days ago. According to the patient as well as the the patient was doing well and participating in therapy. This morning when the patient's saw the patient the patient was not feeling so well, the patient reported that she was fatigued, tired and had chills all over the body. She had decreased effort tolerance and was not able to participate in therapy today. Patient had a fever and was therefore sent to the hospital for further evaluation. The patient in the emergency room denied any acute complaints. The patient has cough which she believes is chronic, she notes that she had some shaking early on which is now resolved, the patient otherwise denies any headache, no changes in vision or hearing no difficulty in swallowing, she does have history of acid reflux. She has shortness of breath on exertion, she does have some cough no sputum at this point. She denies any chest pain. No abdominal symptoms like abdominal pain nausea vomiting constipation or diarrhea. No symptoms. No worsening swelling in the legs, no skin rashes no new joint pain. She denies any acute depression or anxiety. In the emergency room the patient was febrile with a temperature max of 101. The patient's chest x-ray showed pneumonia slightly better than the last time. May be CHF. Patient has leukocytosis on labs, elevatedESR at 99. Chemistry shows creatinine of 1.5 which is stable for her. Lactic acid is normal. Patient has increased oxygen requirement baseline oxygen requirements on 1-2 liters via nasal cannula, in the emergency room she needed up to 4 L. The patient is being admitted to the hospital for further management August 31 patient seen and examined, by the bedside, no acute overnight events patient tolerating medications well. She feels better has metastatic in today and participated in rehabilitation. All microbiology is negative so far. She has been afebrile since yesterday. She is able to tolerate by mouth diet well. CT scan of the chest reviewed she has chronic interstitial involvement in bilateral lungs nonspecific lymphadenopathy. She has no clear evidence of pneumonia on the CT chest. For now will continue antibiotics and wait for microbiology done back negative. If remains stable by tomorrow we will plan for discharge back to rehabilitation facility Pertinent ROS: Denies headache, dizziness Denies chest pain, palpitations Denies cough or shortness of breath Denies abdominal pain, nausea or vomiting. - Constitutional Vitals: Vital Signs Temp Pulse Resp BP Pulse Ox 98.2 F 74 18 145/83 93 08/31/17 11:38 08/31/17 11:38 08/31/17 11:38 08/31/17 11:38 08/31/17 11:38 Period Temp Pulse Resp BP Sys/Smith Pulse Ox Last 24 Hr 97.3 F-101.2 F 72-99 6-28 133-183/56-103 93-99 Intake and Output 08/30/17 08/31/17 08/31/17 21:59 05:59 13:59 Intake Total 1300 / 1300 486 / 486 390 / 390 Output Total 100 / 100 900 / 900 1800 / 1800 Balance 1200 / 1200 -414 / -414 -1410 / -1410 Weight 259 lb 8 oz Intake & Output: Intake & Output 08/30/17 08/31/17 08/31/17 21:59 05:59 13:59 Intake Total 1300 / 1300 486 / 486 390 / 390 Output Total 100 / 100 900 / 900 1800 / 1800 Balance 1200 / 1200 -414 / -414 -1410 / -1410 Weight 259 lb 8 oz Intake: IV 1300 / 1300 50 / 50 50 / 50 Lactated Ringers 1,000 ml @ 1000 / 1000 Wide Open IV .Q0M ONE Rx#: [id number] Zosyn 3.375 gm In Dextrose 5% 50 / 50 50 / 50 50 / 50 in Water 50 ml @ 100 mls/hr IV Q8H [facility] Rx#:[id number] Vancomycin 1,000 mg In Sodium 250 / 250 Chloride 0.9% 250 ml @ 250 mls/ hr IV ONCE ONE Rx#:[id number] Oral 436 / 436 340 / 340 Output: Void Amount 100 / 100 900 / 900 1800 / 1800 Other: Meal Egg salad sandwich, fruit cup, cheese stick, 2 saltine crackers, milk Breakfast Percent of Meal Consumed 100% Feeding Ability Needs Supervision Independent Stool Size Smear Stool Color Brown Stool Consistency Soft # Voids 1 1 1 # Bowel Movements 1 Exam: Constitutional; Afebrile, cooperative, alert, not in distress. Eyes- No icterus, , No periorbital swelling Ears- Ext ear normal, hearing normal to conversation. Neck- Midline trachea, supple Respiratory system: Air Entry equal on both sides, No crackles or wheezing, no rhonchi. CVS- Rate rhythm regular, S1,S2 heard, no gallop, no rub. Abdomen- Soft nontender abdomen, no organomegaly, no tenderness, no guarding or rigidity, [employer]ICE SUPPORT [employer]IST- AOOx3, moving all extremities, no gross focal deficit noted. Medical - PN: Obj Da - Labs CBC & Chem 7: 08/31/17 04:00 08/31/17 04:00 Labs: Abnormal Lab Results 08/31/17 08/31/17 08/31/17 04:00 04:00 04:00 WBC RBC 3.09 L Hgb 9.2 L Hct 28.1 L RDW 16.9 H Gran % Lymph % (Auto) Gran # Lymph # (Auto) 1.3 L ESR PT 32.8 H INR 3.1 H Chloride Carbon Dioxide 31 H Creatinine 1.5 H Glucose 121 H Lactate Dehydrogenase 256 H C-Reactive Protein Albumin 2.7 L Globulin 4.3 H Albumin/Globulin Ratio 0.6 L Urine Protein 08/30/17 08/30/17 08/30/17 16:55 16:49 16:49 WBC 12.2 H RBC 3.36 L Hgb 9.9 L Hct 30.2 L RDW 17.7 H Gran % 80.5 H Lymph % (Auto) 14.3 L Gran # 9.8 H Lymph # (Auto) ESR 99 H PT 35.3 H INR 3.5 H Chloride Carbon Dioxide Creatinine Glucose Lactate Dehydrogenase C-Reactive Protein Albumin Globulin Albumin/Globulin Ratio Urine Protein 100 A 08/30/17 16:48 WBC RBC Hgb Hct RDW Gran % Lymph % (Auto) Gran # Lymph # (Auto) ESR PT INR Chloride 90 L Carbon Dioxide 32 H Creatinine 1.5 H Glucose 139 H Lactate Dehydrogenase C-Reactive Protein 3.1 H Albumin Globulin 4.3 H Albumin/Globulin Ratio 0.7 L Urine Protein Meds: Medications Acetaminophen (Tylenol) 650 mg PO Q6HP PRN PRN Reason: PAIN/FEVER > 101 Albuterol/Ipratropium (Duoneb) 3 ml NEB Q6HRT [facility] Last Admin: 08/31/17 07:17 Dose: 3 ml Carvedilol (Coreg) 12.5 mg PO BIDCC [facility] Last Admin: 08/31/17 09:08 Dose: 12.5 mg Dextrose (Dextrose 50%) 0 ml IV UD PRN PRN Reason: Hypoglycemia Diagnostic Test (Pha) (Accu-Chek) 1 each FS [facility] Last Admin: 08/31/17 11:24 Dose: 1 each Digoxin (Lanoxin) 125 mcg PO DAILY@1400 [facility] Docusate Sodium (Colace) 100 mg PO BID [facility] Last Admin: 08/31/17 09:41 Dose: 100 mg Furosemide (Lasix) 60 mg PO DAILY [facility] Last Admin: 08/31/17 09:37 Dose: 60 mg Gabapentin (Neurontin) 300 mg PO BID@0900,1500 [facility] Last Admin: 08/31/17 09:40 Dose: 300 mg Gabapentin (Neurontin) 900 mg PO HS [facility] Last Admin: 08/30/17 22:19 Dose: 900 mg Glucose (Insta-Glucose) 15 gm PO PRN PRN PRN Reason: Hypoglycemia Guaifenesin (Mucinex) 600 mg PO BIDP PRN PRN Reason: Cough Piperacillin Sod/Tazobactam (Sod 3.375 gm/ Dextrose) 50 mls @ 100 mls/hr IV Q8H [facility] Last Infusion: 08/31/17 06:23 Dose: Infused Vancomycin HCl 1,500 mg/ (Sodium Chloride) 500 mls @ 333.3 mls/hr IV Q24H [facility] Last Admin: 08/31/17 10:20 Dose: 333.3 mls/hr Insulin Glargine (Lantus) 30 unit SQ BID [facility] Last Admin: 08/31/17 09:41 Dose: 30 unit Insulin Human Lispro (Humalog) 0 unit SQ [facility] PRN Reason: Protocol Last Admin: 08/31/17 12:00 Dose: 3 unit Montelukast Sodium (Singular) 10 mg PO DAILY [facility] Last Admin: 08/31/17 09:37 Dose: 10 mg Naloxone HCl (Narcan) 0.1 mg IV Q2MIN PRN PRN Reason: Opiate Reversal Ondansetron HCl (Zofran) 4 mg IV Q6HP PRN PRN Reason: Nausea And Vomiting Oxycodone HCl (Roxicodone) 5 mg PO Q4HP PRN PRN Reason: pain > 5 Pantoprazole Sodium (Protonix) 40 mg PO QAMAC [facility] Last Admin: 08/31/17 07:26 Dose: 40 mg Pramipexole Dihydrochloride (Mirapex) 0.125 mg PO HS [facility] Last Admin: 08/30/17 22:16 Dose: 0.125 mg Fluticasone/Salmeterol (Advair 250-50 Diskus) 1 puff INH BID [facility] Last Admin: 08/31/17 11:24 Dose: Not Given Sodium Chloride (Saline Flush) 10 ml IV Q8 [facility] Last Admin: 08/31/17 05:53 Dose: Not Given Sucralfate (Carafate) 1 gm PO BID [facility] Last Admin: 08/31/17 09:38 Dose: 1 gm Tramadol HCl (Ultram) 50 mg PO BID [facility] Last Admin: 08/31/17 09:39 Dose: 50 mg Vancomycin HCl (Vancomycin Per Pharmacy) 1 order IV [facility] Warfarin Sodium (Coumadin Per Pharmacy) 1 order PO [facility] Medical - PN: A/P - Time Spent With Patient Total time spent is greater than 50% in coordination of care (as documented) at patient's floor/unit and/or counseling patient: - Narrative A/P Narrative: A/P Acute on chr resp failure Health care associated pneumonia Sepsis/ SIRS h/o CHF Chronic Kidney disease stage 3 Morbid Obesity Diabetes , on insulin Atrial Fibrillation HYpertension Hyperlipidemia COPD h/o waldonstroms macroglobinemia 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 Oxygen via NC to keep osat > 90, Ok to intubate if resp status worsens Clinically no e/o CHF Exacerbation. Lantus, ssi for glucose control, Resume home medications for blood pressure Duonebs, q6hr mohit, no wheezing, no e/o copd exacerbation OT/PT rehab DNR code status, ok to intubate if needed Cardiac, diabetic diet Medical - PN: Qual - Stroke Symptom Onset Unknown: No - VTE Deep Vein Thrombosis/Pulmonary Embolism Present on Admission: No
[2017-08-31] MEDS ORDERED: DIGOXIN 125 MCG TABLET PO SCH (14:00)
[2017-08-31] MEDS: PRAMIPEXOLE 0.25 MG TABLET PO SCH (20:22)
[2017-09-01] MEDS: IPRATROPIUM/ALBUTEROL 3 ML AMPUL.NEB NEB SCH ×2 (00:45→07:29)
[2017-09-01] MEDS: 0.9 % SODIUM CHLORIDE 10 ML SYRINGE IV SCH ×2 (04:05→05:03)
[2017-09-01] MEDS: PIPERACILLIN SODIUM/TAZOBACTAM 3.375 GM in DEXTROSE 5% IN WATER 50 ML IV SCH (05:03)
[2017-09-01 05:38] LABS: Basophils # (Auto) 0 K/mcL (0.0-0.3); Basophils % (Auto) 0.7 % (0.0-2.0); Eosinophils # (Auto) 0.5 K/mcL (0.0-0.7); Eosinophils % (Auto) 7.5 % (0.0-7.0); Granulocytes % (Auto) 63.1 % (38.0-78.0); Lymphocytes % (Auto) 17.1 % (15.5-49.0); Mean Cell Volume 90.2 fL (80.0-100.0); Mean Corpuscular HGB Conc 33.4 g/dL (31.0-36.0); Mean Corpuscular Hemoglobin 30.1 pg (26.0-34.0); Monocytes # (Auto) 0.7 K/mcL (0.1-0.9); Monocytes % (Auto) 11.6 % (1.0-12.0); Platelet Count 260 K/mcL (140-440); Red Cell Distribution Width 17.1 % (11.5-14.5)
[2017-09-01 05:59] LABS: ALT/SGPT 10 U/l (0-40); Albumin 2.9 gm/dL (3.2-5.2); Albumin/Globulin Ratio 0.7 (1.0-2.3); Alkaline Phosphatase 61 U/L (39-117); Bilirubin,Direct < 0.2 mg/dL (0.0-0.3); Blood Urea Nitrogen 22 mg/dl (8-23); Gamma Glutamyl Transpeptidase 31 U/L (5-36); Uric Acid 6.7 mg/dL (2.5-8.0)
[2017-09-01] MEDS: PANTOPRAZOLE 40 MG TABLET PO SCH (07:41)
[2017-09-01] MEDS: INSULIN LISPRO 1 UNIT/0.01 ML UNIT SQ SCH ×2 (08:20→12:54)
[2017-09-01] MEDS: DOCUSATE SODIUM 100 MG CAPSULE PO SCH (08:21)
[2017-09-01] MEDS: FLUTICASONE/SALMETEROL 250/50 INHALER #14 INH SCH (08:21)
[2017-09-01] MEDS: INSULIN GLARGINE, HUMAN 1 UNIT/0.01 ML SQ SCH (08:21)
[2017-09-01] MEDS: CARVEDILOL 12.5 MG TABLET PO SCH (08:21)
[2017-09-01] MEDS: SUCRALFATE 1 GM TABLET PO SCH (08:21)
[2017-09-01] MEDS: GABAPENTIN 300 MG CAPSULE PO SCH (08:22)
[2017-09-01] MEDS: traMADol 50 MG TABLET PO SCH (08:22)
[2017-09-01] MEDS: FUROSEMIDE 20 MG TABLET PO SCH (08:22)
[2017-09-01] MEDS: MONTELUKAST 10 MG TABLET PO SCH (08:22)
[2017-09-01] MEDS: VANCOMYCIN 1,500 MG in 0.9 % SODIUM CHLORIDE 500 ML IV SCH (09:30)
--- NOTE | 2017-09-01 10:54 | Discharge Summary ---
Medical - DS: Prov Patient information: Note initiated : 09/01/17 at 10:50 am Service Date, if different from initiated Date: [] Patient: Lyubov Brasher 82 y/o F admitted on 08/30/17 for Abd Pain, Tremors/ Pneumonia. Chief Complaint: [] Date of admission: 08/30/17 20:06 Discharge date: 09/01/17 Primary care physician: Todd Guthrie Admitting clinician: Heather Grajeda Consults: 08/30/17 18:35 Consult to Physician [CONS] Stat Comment: Consulting Provider: Heather Grajeda Reason For Exam: Physician to Consult Discharging clinician: Heather Grajeda Medical - DS: Meds - Discharge Medications Prescriptions: Hydrocodone/APAP 7.5/325Mg [[place] 7.5-325Mg] 1 - 2 tab PO Q4HP PRN #30 tab PRN Reason: Pain traMADol HCL [Ultram] 50 mg PO BID #30 tab Active and Home Medications: Home Medications insulin aspart U-100 100 unit/mL subcutaneous solution See Label Instructions SUB-Q .COMPLEX #30 ml 07/14/17 [Rx Confirmed 08/31/17 Last Taken 08/30/17 12:00] Budesonide [Pulmicort] 1 mg IH TID 08/30/17 [History Confirmed 08/30/17 Last Taken 08/30/17 09:00] Carvedilol [Coreg] 12.5 mg PO BIDCC 08/30/17 [History Confirmed 08/30/17 Last Taken 08/30/17 09:00] Diclofenac Sodium [Voltaren] 120 gm TP BID 08/30/17 [History Confirmed 08/30/17 Last Taken 08/30/17 09:00] Digoxin [Lanoxin] 125 mcg PO DAILY 08/30/17 [History Confirmed 08/30/17 Last Taken 08/30/17 09:00] Docusate Sodium [Colace] 100 mg PO BID 08/30/17 [History Confirmed 08/30/17 Last Taken 08/30/17 09:00] Fluticasone/Salmeterol [Advair 250-50 Diskus] 1 puff INH BID 08/30/17 [History Confirmed 08/30/17 Last Taken 08/29/17 21:00] Furosemide [Lasix] 60 mg PO DAILY 08/30/17 [History Confirmed 08/30/17 Last Taken 08/30/17 09:00] Gabapentin [Neurontin] 300 mg PO BID 08/30/17 [History Confirmed 08/30/17 Last Taken 08/29/17 12:00] Gabapentin [Neurontin] 900 mg PO HS 08/30/17 [History Confirmed 08/30/17 Last Taken 08/29/17 21:00] Hydrocodone/APAP 7.5/325Mg [[place] 7.5-325Mg] 1 - 2 tab PO Q4HP PRN 08/30/17 [ History Confirmed 08/30/17 Last Taken 08/28/17] Insulin Detemir [Levemir] 30 unit SQ HS 08/30/17 [History Confirmed 08/31/17 Last Taken 08/29/17 21:00] Insulin Detemir [Levemir] 35 unit SQ DAILY 08/30/17 [History Confirmed 08/30/17 Last Taken 08/30/17 09:00] Levalbuterol [Xopenex] 1.25 mg NEB TID 08/30/17 [History Confirmed 08/30/17 Last Taken 08/30/17 12:00] Montelukast Sodium [Singulair] 10 mg PO DAILY 08/30/17 [History Confirmed Last Taken 08/29/17 21:00] Ondansetron HCl [Zofran] 4 mg PO Q4-6H PRN 08/30/17 [History Confirmed 08/30/17 Last Taken Unknown] Pantoprazole [Protonix] 40 mg PO QAMAC 08/30/17 [History Confirmed 08/30/17 Last Taken 08/30/17 09:00] Pramipexole [Mirapex] 0.125 mg PO HS 08/30/17 [History Confirmed 08/30/17 Last Taken 08/29/17 21:00] Sennosides [Senna Lax] 8.6 mg PO DAILY 08/30/17 [History Confirmed 08/30/17 Last Taken 08/30/17 09:00] Sucralfate [Carafate] 1 gm PO BID 08/30/17 [History Confirmed 08/30/17 Last Taken 08/30/17 09:00] Warfarin [Coumadin] 3 mg PO DAILY 08/30/17 [History Confirmed 08/30/17 Last Taken Unknown] Warfarin [Coumadin] 4 mg PO DAILY 08/30/17 [History Confirmed 08/30/17 Last Taken Unknown] guaiFENesin [Guaifenesin] 400 mg PO QIDP PRN 08/30/17 [History Confirmed Last Taken 08/30/17 12:00] traMADol HCL [Ultram] 50 mg PO BID 08/30/17 [History Confirmed 08/30/17 Last Taken 08/29/17 21:00] Medical - DS: Hosp Hospital course: Ms. Brasher is a 82 year old Female with multiple medical issues, recently discharged from [facility] to halfway for pneumonia, presents to the hospital with complaints of not feeling well for 1 day. She has been accompanied by her the patient was diagnosed with pneumonia on the 13 of August, the patient was admitted at [facility] and stayed there for approximately one month. The patient was subsequently discharged to a halfway. The patient was on oral antibiotics and finished the last dose couple of days ago. According to the patient as well as the the patient was doing well and participating in therapy. This morning when the patient's saw the patient the patient was not feeling so well, the patient reported that she was fatigued, tired and had chills all over the body. She had decreased effort tolerance and was not able to participate in therapy today. Patient had a fever and was therefore sent to the hospital for further evaluation. In the emergency room the patient was febrile with a temperature max of 101. The patient's chest x-ray showed pneumonia slightly better than the last time. May be CHF. Patient has leukocytosis on labs, elevatedESR at 99. Chemistry shows creatinine of 1.5 which is stable for her. Lactic acid is normal. Patient has increased oxygen requirement baseline oxygen requirements on 1-2 liters via nasal cannula, in the emergency room she needed up to 4 L. The patient is being admitted to the hospital for further management The patient was treated with broad spectrum antibiotics, she responded well to treatment, All microbiology is negative so fa. She is able to tolerate by mouth diet well. CT scan of the chest reviewed she has chronic interstitial involvement in bilateral lungs nonspecific lymphadenopathy. She has no clear evidence of pneumonia on the CT chest. Continue IV antibiotics with Vancomycin and zosyn for 5 more days to complete a 7 day course, Can be completed at the halfway, patient is participating in rehab well, stable for discharge back to SNF plans to drive her back. he does admit to a chronic medication list. At the time of discharge patient is on 2 L of oxygen, by nasal cannula. The patient is able to tolerate by mouth diet well, participating in physical therapy, ambulating with help of a walker. And in good spirits Discharge diagnosis: Pneuonia, fever, - Time Spent with Patient Total time spent providing and/or coordinating discharge services: Greater than 30 minutes Medical - DS: Exam - Constitutional Vitals: Vital Signs Temp Pulse Pulse Resp BP Pulse Ox 09/01/17 09:47 100 H 20 91 09/01/17 07:56 98.6 F 85 20 200/87 92 09/01/17 07:25 99 H 20 09/01/17 03:58 98.0 F 79 24 H 150/69 96 09/01/17 00:55 83 22 08/31/17 23:43 98.7 F 89 26 H 146/76 93 08/31/17 20:10 93 08/31/17 20:00 98.5 F 82 24 H 171/71 93 08/31/17 19:34 90 16 08/31/17 19:29 96 08/31/17 15:56 98.4 F 73 16 128/60 94 08/31/17 13:20 77 18 08/31/17 11:38 98.2 F 74 18 145/83 93 Intake and Output 08/31/17 09/01/17 09/01/17 21:59 05:59 13:59 Intake Total 840 / 840 350 / 350 480 / 480 Output Total 1800 / 1800 750 / 750 600 / 600 Balance -960 / -960 -400 / -400 -120 / -120 Intake: IV 50 / 50 50 / 50 Zosyn 3.375 gm In Dextrose 5% 50 / 50 50 / 50 in Water 50 ml @ 100 mls/hr IV Q8H [facility] Rx#:[id number] Oral 790 / 790 300 / 300 480 / 480 Output: Void Amount 1800 / 1800 750 / 750 600 / 600 Other: Meal Dinner Breakfast Percent of Meal Consumed 75% 100% Feeding Ability Independent Stool Size Large Stool Color Brown Stool Consistency Formed # Voids 1 # Bowel Movements 1 Weight 263 lb Additional comments: Constitutional; Afebrile, cooperative, alert, not in distress. Eyes- No icterus, , No periorbital swelling Ears- Ext ear normal, hearing normal to conversation. Neck- Midline trachea, supple Respiratory system: Air Entry equal on both sides, No crackles or wheezing, no rhonchi. CVS- Rate rhythm regular, S1,S2 heard, no gallop, no rub. Abdomen- Soft nontender abdomen, no organomegaly, no tenderness, no guarding or rigidity, [employer]ATION OFFICER- AOOx3, moving all extremities, no gross focal deficit noted. Medical - DS: Data Labs on day of discharge: Labs from last 24 hours 09/01/17 09/01/17 09/01/17 04:00 04:00 04:00 WBC 6.1 RBC 3.00 L Hgb 9.0 L Hct 27.0 L MCV 90.2 MCH 30.1 MCHC 33.4 RDW 17.1 H Plt Count 260 MPV 8.8 Gran % 63.1 Lymph % (Auto) 17.1 [place] % (Auto) 11.6 Eos % (Auto) 7.5 H Baso % (Auto) 0.7 Gran # 3.8 Lymph # (Auto) 1.0 L [place] # (Auto) 0.7 Eos # (Auto) 0.5 Baso # (Auto) 0 PT 27.1 H INR 2.5 H Sodium 140 Potassium 4.0 Chloride 98 Carbon Dioxide 31 H Anion Gap 11.0 BUN 22 Creatinine 1.4 H GFR Calculation 35 Glucose 145 H Uric Acid 6.7 Calcium 9.3 Phosphorus 4.0 Magnesium 1.8 Total Bilirubin 0.3 Direct Bilirubin < 0.2 GGT 31 AST 11 ALT 10 Alkaline Phosphatase 61 Lactate Dehydrogenase 232 Total Protein 6.9 Albumin 2.9 L Globulin 4.0 H Albumin/Globulin Ratio 0.7 L Triglycerides 99 Preliminary micro results at discharge 08/30/17 22:35 Sputum Culture - Preliminary Sputum - Expectorated Medical - DS: A/P - Patient/Caregiver Discharge Instructions Activity: as per physical therapy, increase activity as tolerated Diet: Cardiac, Consistent Carbohydrate Additional Instructions: Take Vancomycin Intravenously for 5 more days, Last day of treatment will be 06/14 Take IV zosyn for 5 more days, last day of treatment 09/06/17 Follow up with PCP in 1 week Check INR in 3 days and adjust dosing as per PCP recommendations Go to the ER if fever, chest pain , shortness of breath or any other acute concerning symptoms. - Follow up Plan Follow up with: Todd Guthrie MD [Primary Care Provider] - Disposition: Xfer SNF Prognosis: Fair Rehab Potential: Fair I certify that the patient requires SNF services: Yes Overall status at discharge: patient is progressing back to baseline Medical - DS: Qual - VTE Deep Vein Thrombosis/Pulmonary Embolism Present on Admission: No
[2017-09-01] MEDS ORDERED: WARFARIN 3 MG TABLET PO ONE (14:00)
== END 2017-09-01 12:35 | DRG 871 ==
LOC: ED 15:47 → ICU 20:06
PROVIDERS: ADMIT Internal Medicine; ATTEND Internal Medicine

== ENCOUNTER 2018-01-08 10:36 | Observation (INO) ==
[2018-01-08] MEDS ORDERED: ONDANSETRON 4 MG/2 ML VIAL IV ONE (11:05)
[2018-01-08] MEDS ORDERED: FUROSEMIDE 100 MG/10 ML VIAL IV ONE (11:13)
[2018-01-08] MEDS ORDERED: METOLAZONE 2.5 MG TABLET PO ONE (11:13)
[2018-01-08 11:17] LABS: Basophils # (Auto) 0 K/mcL (0.0-0.3); Basophils % (Auto) 0 % (0.0-2.0); Eosinophils # (Auto) 0.3 K/mcL (0.0-0.7); Eosinophils % (Auto) 3.4 % (0.0-7.0); Granulocytes % (Auto) 74.3 % (38.0-78.0); Lymphocytes # (Auto) 1.5 K/mcL (1.5-4.8); Lymphocytes % (Auto) 18.5 % (15.5-49.0); Mean Cell Volume 88.2 fL (80.0-100.0); Mean Corpuscular HGB Conc 32.8 g/dL (31.0-36.0); Mean Corpuscular Hemoglobin 28.9 pg (26.0-34.0); Monocytes # (Auto) 0.3 K/mcL (0.1-0.9); Monocytes % (Auto) 3.8 % (1.0-12.0); Platelet Count 219 K/mcL (140-440); RBC 4.09 M/mcL (4.00-5.20)
--- NOTE | 2018-01-08 11:38 | XRay Report ---
INDICATION: Dyspnea TECHNIQUE: AP chest x-ray, portable semiupright COMPARISON: Previous chest x-rays dated 08/30/2017, 08/12/2017 FINDINGS: No change in left-sided Port-A-Cath with its tip in superior vena cava There is cardiomegaly, unchanged. Pulmonary vascularity is prominent. There is mild peribronchial thickening. Appearance is consistent with chronic interstitial edema. Findings are unchanged since previous examinations. No new focal pulmonary parenchymal infiltrates. No acute pneumonia. No change in hilar or mediastinum. No evidence for pleural fluid. IMPRESSION: 1. Cardiomegaly and findings consistent with chronic interstitial edema 2. No acute or focal parenchymal infiltrate Interpreted and Authenticated by: Ean Donovan 01/08/18
[2018-01-08 11:41] LABS: ALT/SGPT 22 U/l (0-40); Albumin 2.4 gm/dL (3.2-5.2); Albumin/Globulin Ratio 0.5 (1.0-2.3); Alkaline Phosphatase 90 U/L (39-117); Blood Urea Nitrogen 24 mg/dl (8-23)
[2018-01-08 11:50] LABS: Appearance,Urine CLEAR; Bacteria,Urine 0 /hpf (0); Bilirubin,Urine NEG (NEG); Color,Urine YELLOW; Glucose,Urine (UA) 50 mg/dL (NEG); Leukocyte Esterase,Urine NEG /uL (NEG); Mucus,Urine FEW /hpf (0); Protein,Urine >=500 mg/dL (NEG); Specific Gravity,Urine 1.012 (1.000-1.035); Urine Blood NEG mg/dL (<0.03); Urine RBC 2 /hpf (0-1); Urine Squamous Epithelial Cell < 1 /hpf (0-4); Urine WBC 1 /hpf (0-4); Urobilinogen,Urine NEG (NEG)
[2018-01-08] MEDS ORDERED: MAG HYDROX/AL HYDROX/SIMETH 30 ML ORAL.SUSP PO ONE (12:16)
--- NOTE | 2018-01-08 15:06 | Emergency Department Note ---
SOB HPI - General Chief Complaint: Shortness of Breath/Dyspnea Stated Complaint: Sob, weight gain, abd pain Time Seen by Provider: 01/08/18 10:38 Source: patient, family Mode of arrival: wheelchair Limitations: no limitations - History of Present Illness Patient with increasing shortness of breath over the last 3 days. Unable to lay flat in bed. CPAP-dependent sleep apnea, COPD. Nose skin about 10 pounds in weight, continues to take her usual dose of Lasix ineffective. No fevers or chills no cough. Very dyspneic on minimal exertion. Increasing swelling of the lower extremities. No chest pain or anginal " - Related Data Home Medications Medication Instructions Recorded Confirmed Gabapentin [Neurontin] 900 mg PO HS 08/30/17 01/08/18 guaiFENesin [Guaifenesin] 400 mg PO QIDP PRN 08/30/17 01/08/18 docusate sodium 100 mg capsule 100 mg PO BID cap 10/29/17 01/08/18 Furosemide [Lasix] 80 mg PO QDAY 01/08/18 01/08/18 Previous Rx's Medication Instructions Recorded Hydrocodone/APAP 7.5/325Mg [[place] 1 - 2 tab PO Q4HP PRN #30 tab 09/01/17 7.5-325Mg] digoxin 125 mcg tablet 125 mcg PO QDAY #90 tab 10/19/17 pramipexole 0.25 mg tablet 0.125 mg PO HS #45 tab 10/19/17 aspirin 81 mg tablet,delayed 81 mg PO QDAY #1 tab 10/29/17 release budesonide 90 mcg/actuation breath See Label Instructions INHALATION 10/29/17 activated powder inhaler BID #1 each carvedilol 12.5 mg tablet 12.5 mg PO BID #180 tab 10/29/17 insulin aspart U-100 100 unit/mL 4 unit SUB-Q .QAC #15 ml 10/29/17 subcutaneous pen insulin detemir (U-100) 100 See Label Instructions SUB-Q 10/29/17 unit/mL subcutaneous solution .COMPLEX #10 ml levalbuterol concentrate 1.25 1.25 mg INHALATION TID #1 each 10/29/17 mg/0.5 mL solution for nebulization magnesium hydroxide 400 mg/5 mL 5 ml PO QDAY PRN #118 ml 10/29/17 oral suspension montelukast 10 mg tablet 10 mg PO QPM #1 tab 10/29/17 ondansetron HCl 4 mg tablet 4 mg PO Q6H PRN #1 tab 10/29/17 pantoprazole 40 mg tablet,delayed 40 mg PO QDAY #1 tab 10/29/17 release sennosides 8.6 mg tablet 8.6 mg PO QDAY #1 tab 10/29/17 sucralfate 1 gram tablet 1 g PO BID #180 tab 10/29/17 umeclidinium 62.5 mcg-vilanterol 1 inh INHALATION Q24H #60 each 10/29/17 25 mcg/actuation powdr for inhalation gabapentin 300 mg capsule 300 mg PO BID #180 cap 01/04/18 tramadol 50 mg tablet 50 mg PO BID #180 tab 01/04/18 Allergies Allergy/AdvReac Type Severity Reaction Status Date / Time pregabalin [From Lyrica] Allergy Severe Swelling Verified 01/08/18 10:37 of Lip/Tongue/Throat nitrofurantoin Allergy Mild Blister Verified 01/08/18 10:37 [From Macrodantin] Band-Aid AdvReac Mild Blister Uncoded 12/22/17 14:10 Review of Systems All systems ED: reviewed and negative except as stated. Past Medical History - Past Medical History Attestation: Yes: The following information was validated with the patient. 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 Absent: lymphadenopathy Respiratory: Present: other (diffuse fine crackles). Absent: respiratory distress Cardiovascular: Present: regular rate, normal rhythm Abdominal: Present: soft. Absent: tenderness Extremities: Present: pedal edema, pretibial edema Neurological: Present: alert, oriented X3 Skin: Present: warm, dry Course Vital Signs Temperature 97.2 F 01/08/18 10:37 Pulse Rate 83 01/08/18 10:37 Respiratory Rate 22 01/08/18 10:37 Blood Pressure 191/103 01/08/18 10:37 Pulse Oximetry (%) 86 L 01/08/18 10:37 Temperature 97.2 F 01/08/18 10:37 Pulse Rate 73 01/08/18 14:31 Respiratory Rate 18 01/08/18 14:31 Blood Pressure 143/61 01/08/18 14:31 Pulse Oximetry (%) 94 01/08/18 14:31 Shortness of Breath/Dyspnea - Lab Data Lab results reviewed: Yes I reviewed the patient's lab results. Result diagrams: 01/08/18 10:56 01/08/18 10:56 Lab Results 01/08/18 01/08/18 01/08/18 Range/Units 10:56 10:56 10:56 WBC 8.0 (4.5-11.0) K/mcL RBC 4.09 (4.00-5.20) M/mcL Hgb 11.8 L (12.0-15.0) g/dL Hct 36.0 (36.0-48.0) % MCV 88.2 (80.0-100.0) fL MCH 28.9 (26.0-34.0) pg MCHC 32.8 (31.0-36.0) g/dL RDW 16.0 H (11.5-14.5) % Plt Count 219 (140-440) K/mcL MPV 9.5 (7.4-10.4) fL Gran % 74.3 (38.0-78.0) % Lymph % (Auto) 18.5 (15.5-49.0) % [place] % (Auto) 3.8 (1.0-12.0) % Eos % (Auto) 3.4 (0.0-7.0) % Baso % (Auto) 0 (0.0-2.0) % Gran # 6.0 (1.8-8.0) K/mcL Lymph # (Auto) 1.5 (1.5-4.8) K/mcL [place] # (Auto) 0.3 (0.1-0.9) K/mcL Eos # (Auto) 0.3 (0.0-0.7) K/mcL Baso # (Auto) 0 (0.0-0.3) K/mcL Sodium 130 L (133-145) mmol/L Potassium 4.3 (3.3-5.1) mmol/L Chloride 92 L (96-108) mmol/L Carbon Dioxide 26 (22-30) mmol/L Anion Gap 12.0 (8-16) BUN 24 H (8-23) mg/dl Creatinine 1.3 H (0.6-1.1) mg/dl GFR Calculation 38 Glucose 135 H (70-105) mg/dL Calcium 8.9 (8.6-10.4) mg/dl Total Bilirubin 0.6 (0.0-1.0) mg/dL AST 45 H (0-37) U/l ALT 22 (0-40) U/l Alkaline Phosphatase 90 (39-117) U/L Troponin T 0.05 H* (0-0.03) ng/ml NT-Pro-B Natriuret Pep 3148.0 H (0-450) pg/ml Total Protein 7.5 (5.9-8.4) gm/dL Albumin 2.4 L (3.2-5.2) gm/dL Globulin 5.1 H (2.2-3.7) gm/dL Albumin/Globulin Ratio 0.5 L (1.0-2.3) Urine Color Urine Appearance Urine pH (5.0-9.0) Ur Specific [place] (1.000-1.035) Urine Protein (NEG) mg/dL Urine Glucose (UA) (NEG) mg/dL Urine Ketones (NEG) mg/dL Urine Occult Blood (<0.03) mg/dL Urine Nitrate (NEG) Urine Bilirubin (NEG) mg/dL Urine Urobilinogen (NEG) mg/dL Ur Leukocyte Esterase (NEG) /uL Urine RBC (0-1) /hpf Urine WBC (0-4) /hpf Ur Squamous Epith Cells (0-4) /hpf Urine Bacteria (0) /hpf Urine Mucus (0) /hpf Ur Culture Indicated? 01/08/18 01/08/18 Range/Units 11:15 13:54 WBC (4.5-11.0) K/mcL RBC (4.00-5.20) M/mcL Hgb (12.0-15.0) g/dL Hct (36.0-48.0) % MCV (80.0-100.0) fL MCH (26.0-34.0) pg MCHC (31.0-36.0) g/dL RDW (11.5-14.5) % Plt Count (140-440) K/mcL MPV (7.4-10.4) fL Gran % (38.0-78.0) % Lymph % (Auto) (15.5-49.0) % [place] % (Auto) (1.0-12.0) % Eos % (Auto) (0.0-7.0) % Baso % (Auto) (0.0-2.0) % Gran # (1.8-8.0) K/mcL Lymph # (Auto) (1.5-4.8) K/mcL [place] # (Auto) (0.1-0.9) K/mcL Eos # (Auto) (0.0-0.7) K/mcL Baso # (Auto) (0.0-0.3) K/mcL Sodium (133-145) mmol/L Potassium (3.3-5.1) mmol/L Chloride (96-108) mmol/L Carbon Dioxide (22-30) mmol/L Anion Gap (8-16) BUN (8-23) mg/dl Creatinine (0.6-1.1) mg/dl GFR Calculation Glucose (70-105) mg/dL Calcium (8.6-10.4) mg/dl Total Bilirubin (0.0-1.0) mg/dL AST (0-37) U/l ALT (0-40) U/l Alkaline Phosphatase (39-117) U/L Troponin T 0.05 H* (0-0.03) ng/ml NT-Pro-B Natriuret Pep (0-450) pg/ml Total Protein (5.9-8.4) gm/dL Albumin (3.2-5.2) gm/dL Globulin (2.2-3.7) gm/dL Albumin/Globulin Ratio (1.0-2.3) Urine Color Yellow Urine Appearance Clear Urine pH 7.0 (5.0-9.0) Ur Specific [place] 1.012 (1.000-1.035) Urine Protein >=500 A (NEG) mg/dL Urine Glucose (UA) 50 A (NEG) mg/dL Urine Ketones Neg (NEG) mg/dL Urine Occult Blood Neg (<0.03) mg/dL Urine Nitrate Neg (NEG) Urine Bilirubin Neg (NEG) mg/dL Urine Urobilinogen Neg (NEG) mg/dL Ur Leukocyte Esterase Neg (NEG) /uL Urine RBC 2 H (0-1) /hpf Urine WBC 1 (0-4) /hpf Ur Squamous Epith Cells < 1 (0-4) /hpf Urine Bacteria 0 (0) /hpf Urine Mucus Few (0) /hpf Ur Culture Indicated? No - Radiology Data Radiology results reviewed: Yes I reviewed the patient's radiology results. Diffuse edema Disposition Pt seen by BLADE BONER/PA only: No Clinical Impression: CHF exacerbation Qualifiers: Heart failure type: unspecified Qualified Code(s): I50.9 - Heart failure, unspecified Summary: Unable to locate echocardiogram Doubt acute coronary, repeat troponin requested by hospitalist Disposition: Xfer As Outpt/Obs ([facility]) Condition: Fair Referrals: Todd Guthrie MD [Primary Care Provider] -
[2018-01-08] MEDS ORDERED: ACETAMINOPHEN 325 MG TABLET PO PRN (17:41)
--- NOTE | 2018-01-08 17:41 | Internal Med History&Physical ---
Medical - H&P: HPI Patient information: Note initiated : 01/08/18 at 5:35 pm Service Date, if different from initiated Date: [] Patient: Lyubov Brasher 82 y/o F admitted on 01/08/18 for Sob, weight gain, abd pain. Chief Complaint: [] Chief complaint: could not breathe History of present illness: Ms. 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 She has just come home , off of hospice (for COPD/CHF) at end of November. She has compliance issues with fluid restriction, and has significant weight gain of 10 pounds in 2 days, beginning to experience dyspnea on exertion, increased edema, overnight shortness of breath, with desaturation to 82% this morning. Preliminary x-ray show fluid overload CHF. She got 80 mg IV Lasix with 2.5 mg Zaroxolyn for diuresis, Echo is requested and done at the ER. We'll check serial cardiac enzymes, place her on telemetry observation. All systems: reviewed and no additional remarkable complaints except as stated Medical - H&P: Meds Home Medications Medication Instructions Recorded Confirmed Type Gabapentin [Neurontin] 900 mg PO HS 08/30/17 01/08/18 History digoxin 125 mcg tablet 125 mcg PO QDAY #90 tab 10/19/17 01/08/18 Rx budesonide 90 mcg/actuation breath See Label Instructions INHALATION 10/29/17 Rx activated powder inhaler BID #1 each carvedilol 12.5 mg tablet 12.5 mg PO BID #180 tab 10/29/17 01/08/18 Rx insulin detemir (U-100) 100 See Label Instructions SUB-Q 10/29/17 01/08/18 Rx unit/mL subcutaneous solution .COMPLEX #10 ml montelukast 10 mg tablet 10 mg PO QPM #1 tab 10/29/17 01/08/18 Rx ondansetron HCl 4 mg tablet 4 mg PO Q6H PRN #1 tab 10/29/17 01/08/18 Rx sucralfate 1 gram tablet 1 g PO BID #180 tab 10/29/17 01/08/18 Rx umeclidinium 62.5 mcg-vilanterol 1 inh INHALATION Q24H #60 each 10/29/17 Rx 25 mcg/actuation powdr for inhalation tramadol 50 mg tablet 50 mg PO BID #180 tab 01/04/18 01/08/18 Rx Aspirin [Lo-Dose Aspirin EC] 162 mg PO QDAY 01/08/18 01/08/18 History Furosemide [Lasix] 80 mg PO QDAY 01/08/18 01/08/18 History Gabapentin [Neurontin] 600 mg PO BID 01/08/18 01/08/18 History Hydrocodone/APAP 7.5/325Mg 7.5 mg PO PRN PRN 01/08/18 01/08/18 History Insulin Aspart [Novolog Flexpen] 4 unit SUB-Q 01/08/18 History Magnesium Oxide [Magox 400] 400 mg PO DAILY 01/08/18 01/08/18 History Pramipexole Di-HCl [Pramipexole 0.125 mg PO HS 01/08/18 01/08/18 History Dihydrochloride] Sennosides 8.6 mg PO PRN PRN 01/08/18 01/08/18 History Allergies Allergy/AdvReac Type Severity Reaction Status Date / Time pregabalin [From Lyrica] Allergy Severe Swelling Verified 01/08/18 10:37 of Lip/Tongue/Throat nitrofurantoin Allergy Mild Blister Verified 01/08/18 10:37 [From Macrodantin] Band-Aid AdvReac Mild Blister Uncoded 12/22/17 14:10 Medical - H&P: Exam - Constitutional Vitals: Temp Pulse Resp BP Pulse Ox 98 F 67 20 178/76 97 01/08/18 17:34 01/08/18 17:20 01/08/18 17:34 01/08/18 17:34 01/08/18 17:34 General appearance: morbidly obese - Head Head exam: Present: atraumatic, normocephalic - Eye Eye exam: Present: EOMI Pupils: Present: normal accommodation, PERRL - ENT ENT exam: Present: mucous membranes dry - Neck Neck exam: Present: full ROM. Absent: lymphadenopathy, meningismus - Respiratory Respiratory exam: Present: rales. Absent: accessory muscle use Additional comments: Bibasal fine rales - Cardiovascular Cardiovascular exam: Present: irregular rhythm, +S1, +S2, systolic murmur. Absent: gallop, rubs - GI/Abdominal GI/Abdominal exam: Present: normal bowel sounds, soft. Absent: guarding, rebound, tenderness Additional comments: Central obesity abdomen habits - Extremities Exam Extremities exam: Present: pedal edema. Absent: calf tenderness Additional comments: 2-3+ pitting edema lateral extremities - Neurological Exam Neurological exam: Present: alert, CN II-XII intact Additional comments: Appeared to have some degree of dementia - Skin Skin exam: Present: warm. Absent: petechiae, rash Additional comments: Sweats moist on trunk Medical - H&P: Reslt - Labs CBC & Chem 7: 01/10/18 03:50 01/10/18 03:50 Labs: Short CBC 01/08/18 Range/Units 10:56 WBC 8.0 (4.5-11.0) K/mcL Hgb 11.8 L (12.0-15.0) g/dL Hct 36.0 (36.0-48.0) % Plt Count 219 (140-440) K/mcL BMP 01/08/18 10:56 Sodium 130 L Potassium 4.3 Chloride 92 L Carbon Dioxide 26 BUN 24 H Creatinine 1.3 H Glucose 135 H Calcium 8.9 Cardiac Enzymes 01/08/18 01/08/18 Range/Units 10:56 13:54 Troponin T 0.05 H* 0.05 H* (0-0.03) ng/ml Liver Function 01/08/18 Range/Units 10:56 Total Bilirubin 0.6 (0.0-1.0) mg/dL AST 45 H (0-37) U/l ALT 22 (0-40) U/l Alkaline Phosphatase 90 (39-117) U/L Albumin 2.4 L (3.2-5.2) gm/dL Urine 01/08/18 Range/Units 11:15 Urine Color Yellow Urine Appearance Clear Urine pH 7.0 (5.0-9.0) Ur Specific [place] 1.012 (1.000-1.035) Urine Protein >=500 A (NEG) mg/dL Urine Glucose (UA) 50 A (NEG) mg/dL - EKG Data Prior EKG available for review: no EKG comments: 01/08/18 19:58 Atrial fibrillation, rate 77, inferior Q wave, age undetermined. Medical - H&P: A/P (1) CHF exacerbation Current visit: Yes Status: Acute (2) CKD (chronic kidney disease) stage 3, GFR 30-59 ml/min Current visit: No Status: Chronic (3) Persistent proteinuria Current visit: No Status: Chronic (4) [place]s macroglobulinemia Current visit: No Status: Acute (5) Atrial fibrillation Current visit: No Status: Acute
[2018-01-08] MEDS: BUDESONIDE 0.5 MG/2 ML AMPUL.NEB NEB SCH ×2 (18:39→19:52)
[2018-01-08] MEDS: IPRATROPIUM/ALBUTEROL 3 ML AMPUL.NEB NEB SCH (18:39)
[2018-01-08] MEDS: MONTELUKAST 10 MG TABLET PO SCH (21:19)
[2018-01-08] MEDS: FUROSEMIDE 100 MG/10 ML VIAL IV SCH (21:20)
[2018-01-08] MEDS: 0.9 % SODIUM CHLORIDE 10 ML SYRINGE IV SCH (21:20)
[2018-01-09] MEDS: IPRATROPIUM/ALBUTEROL 3 ML AMPUL.NEB NEB SCH ×4 (01:20→18:50)
[2018-01-09] MEDS ORDERED: SENNOSIDES 1 TABLET PO PRN (05:12)
[2018-01-09 05:23] LABS: Basophils # (Auto) 0.1 K/mcL (0.0-0.3); Basophils % (Auto) 0.7 % (0.0-2.0); Eosinophils # (Auto) 0.3 K/mcL (0.0-0.7); Eosinophils % (Auto) 3.9 % (0.0-7.0); Granulocytes % (Auto) 62.2 % (38.0-78.0); Lymphocytes # (Auto) 1.5 K/mcL (1.5-4.8); Lymphocytes % (Auto) 19.9 % (15.5-49.0); Mean Cell Volume 89.7 fL (80.0-100.0); Mean Corpuscular HGB Conc 32.4 g/dL (31.0-36.0); Mean Corpuscular Hemoglobin 29.1 pg (26.0-34.0); Monocytes % (Auto) 13.3 % (1.0-12.0); Platelet Count 224 K/mcL (140-440); RBC 4.05 M/mcL (4.00-5.20); Red Cell Distribution Width 16.1 % (11.5-14.5)
[2018-01-09] MEDS ORDERED: HYDROcodone/APAP 5/325MG TABLET PO PRN (05:35)
[2018-01-09 05:50] LABS: ALT/SGPT 23 U/l (0-40); Albumin 2.6 gm/dL (3.2-5.2); Albumin/Globulin Ratio 0.5 (1.0-2.3); Alkaline Phosphatase 91 U/L (39-117); Blood Urea Nitrogen 27 mg/dl (8-23); Prealbumin 10.2 mg/dl (20-40)
[2018-01-09] MEDS: 0.9 % SODIUM CHLORIDE 10 ML SYRINGE IV SCH ×3 (06:04→21:17)
[2018-01-09 06:37] LABS: Erythrocyte Sedimentation Rate 108 mm/hr (0-20)
[2018-01-09] MEDS: BUDESONIDE 0.5 MG/2 ML AMPUL.NEB NEB SCH ×2 (07:15→18:50)
[2018-01-09] MEDS ORDERED: DEXTROSE 50% 50 ML VIAL IV PRN (08:26)
[2018-01-09] MEDS ORDERED: DEXTROSE 31 GM ORAL.SUSP PO PRN (08:26)
[2018-01-09] MEDS: FUROSEMIDE 100 MG/10 ML VIAL IV SCH ×2 (08:54→21:15)
[2018-01-09] MEDS: CARVEDILOL 12.5 MG TABLET PO SCH ×2 (08:54→17:26)
[2018-01-09] MEDS: ASPIRIN 81 MG TAB.CHEW PO SCH (08:55)
[2018-01-09] MEDS: INSULIN GLARGINE, HUMAN 1 UNIT/0.01 ML SQ SCH ×2 (08:55→21:16)
[2018-01-09] MEDS: SUCRALFATE 1 GM TABLET PO SCH ×2 (08:55→21:15)
[2018-01-09] MEDS: INSULIN LISPRO 1 UNIT/0.01 ML UNIT SQ SCH ×3 (11:46→21:16)
--- NOTE | 2018-01-09 13:07 | Internal Med Progress Note ---
Medical - PN: Subj Patient information: Note initiated : 01/09/18 at 1:07 pm Service Date, if different from initiated Date: [] Patient: Lyubov Brasher 82 y/o F admitted on 01/08/18 for Sob, weight gain, abd pain. Chief Complaint: [] - Constitutional Vitals: Vital Signs Temp Pulse Resp BP Pulse Ox 98.0 F 62 16 161/73 96 01/09/18 07:24 01/09/18 11:20 01/09/18 07:26 01/09/18 07:24 01/09/18 07:26 Period Temp Pulse Resp BP Sys/Smith Pulse Ox Last 24 Hr 97.2 F-99.1 F 34-97 14-23 125-178/61-81 88-97 Intake and Output 01/08/18 01/09/18 01/09/18 21:59 05:59 13:59 Intake Total 400 / 400 200 / 200 Output Total 1700 / 1700 1400 / 1400 Balance -1700 / -1700 -1000 / -1000 200 / 200 Weight 247 lb Intake & Output: Intake & Output 01/08/18 01/09/18 01/09/18 21:59 05:59 13:59 Intake Total 400 / 400 200 / 200 Output Total 1700 / 1700 1400 / 1400 Balance -1700 / -1700 -1000 / -1000 200 / 200 Weight 247 lb Intake: Oral 400 / 400 200 / 200 Output: Urine Catheter Amount 1700 / 1700 1400 / 1400 Other: Meal Breakfast Percent of Meal Consumed 100% Feeding Ability Independent Medical - PN: Obj Da - Labs CBC & Chem 7: 01/09/18 03:30 01/09/18 03:30 Labs: Abnormal Lab Results 01/09/18 01/09/18 01/08/18 03:30 03:30 23:20 Hgb 11.8 L RDW 16.1 H Clare % (Auto) 13.3 H [place] # (Auto) 1.0 H ESR 108 H PT INR APTT Sodium 131 L Chloride 90 L Carbon Dioxide 32 H BUN 27 H Creatinine 1.4 H Glucose 208 H AST 42 H Troponin T 0.05 H* NT-Pro-B Natriuret Pep Albumin 2.6 L Globulin 4.9 H Albumin/Globulin Ratio 0.5 L Prealbumin 10.2 L Urine Protein Urine Glucose (UA) Urine RBC 07/14/18 07/14/18 07/14/18 23:20 13:54 11:15 Hgb RDW Clare % (Auto) Clare # (Auto) ESR PT 16.2 H INR 1.3 H APTT Sodium Chloride Carbon Dioxide BUN Creatinine Glucose AST Troponin T 0.05 H* NT-Pro-B Natriuret Pep Albumin Globulin Albumin/Globulin Ratio Prealbumin Urine Protein >=500 A Urine Glucose (UA) 50 A Urine RBC 2 H 01/08/18 01/08/18 01/08/18 10:56 10:56 10:56 Hgb 11.8 L RDW 16.0 H Clare % (Auto) Clare # (Auto) ESR PT INR APTT Sodium 130 L Chloride 92 L Carbon Dioxide BUN 24 H Creatinine 1.3 H Glucose 135 H AST 45 H Troponin T 0.05 H* NT-Pro-B Natriuret Pep 3148.0 H Albumin 2.4 L Globulin 5.1 H Albumin/Globulin Ratio 0.5 L Prealbumin Urine Protein Urine Glucose (UA) Urine RBC 01/08/18 10:42 Hgb RDW [place] % (Auto) Clare # (Auto) ESR PT INR APTT 130 H Sodium Chloride Carbon Dioxide BUN Creatinine Glucose AST Troponin T NT-Pro-B Natriuret Pep Albumin Globulin Albumin/Globulin Ratio Prealbumin Urine Protein Urine Glucose (UA) Urine RBC Meds: Medications Acetaminophen (Tylenol) 650 mg PO Q6HP PRN PRN Reason: PAIN/FEVER > 101 Hydrocodone Bitart/Acetaminophen ([place] 5/325mg) 1 tab PO Q4-6HP PRN PRN Reason: PAIN LEVEL 3-6 Albuterol/Ipratropium (Duoneb) 3 ml NEB Q6HRT [facility] Last Admin: 01/09/18 07:15 Dose: 3 ml Aspirin (Aspirin) 162 mg PO DAILY [facility] Last Admin: 01/09/18 08:55 Dose: 162 mg Budesonide (Pulmicort) 0.5 mg NEB Q12 [facility] Last Admin: 01/09/18 07:15 Dose: 0.5 mg Carvedilol (Coreg) 12.5 mg PO BIDCC [facility] Last Admin: 01/09/18 08:54 Dose: 12.5 mg Dextrose (Dextrose 50%) 0 ml IV UD PRN PRN Reason: Hypoglycemia Diagnostic Test (Pha) (Accu-Chek) 1 each FS ACHS [facility] Last Admin: 01/09/18 11:45 Dose: 1 each Furosemide (Lasix) 60 mg IV Q12 [facility] Last Admin: 01/09/18 08:54 Dose: 60 mg Gabapentin (Neurontin) 600 mg PO BID [facility] Glucose (Insta-Glucose) 15 gm PO PRN PRN PRN Reason: Hypoglycemia Insulin Glargine (Lantus) 30 unit SQ BID [facility] Last Admin: 01/09/18 08:55 Dose: 30 unit Insulin Human Lispro (Humalog) 0 unit SQ ACHS [facility] PRN Reason: Protocol Last Admin: 01/09/18 11:46 Dose: 3 unit Montelukast Sodium (Singular) 10 mg PO HS [facility] Last Admin: 01/08/18 21:19 Dose: 10 mg Pramipexole Dihydrochloride (Mirapex) 0.125 mg PO HS [facility] Senna (Senokot) 1 tab PO DAILYP PRN PRN Reason: Constipation Sodium Chloride (Saline Flush) 10 ml IV Q8 [facility] Last Admin: 01/09/18 06:04 Dose: 10 ml Sucralfate (Carafate) 1 gm PO BID [facility] Last Admin: 01/09/18 08:55 Dose: 1 gm Medical - PN: A/P - Time Spent With Patient Total time spent is greater than 50% in coordination of care (as documented) at patient's floor/unit and/or counseling patient: (1) CHF exacerbation Status: Acute Current Visit: Yes (2) CKD (chronic kidney disease) stage 3, GFR 30-59 ml/min Status: Chronic Current Visit: No (3) Persistent proteinuria Status: Chronic Current Visit: No (4) Waldenstroms macroglobulinemia Status: Acute Current Visit: No (5) Atrial fibrillation Status: Acute Current Visit: No Medical - PN: Qual - VTE Deep Vein Thrombosis/Pulmonary Embolism Present on Admission: No
[2018-01-09] MEDS ORDERED: PRAMIPEXOLE 0.25 MG TABLET PO SCH (21:00)
[2018-01-09] MEDS: GABAPENTIN 300 MG CAPSULE PO SCH (21:15)
[2018-01-09] MEDS: MONTELUKAST 10 MG TABLET PO SCH (21:15)
[2018-01-10] MEDS: IPRATROPIUM/ALBUTEROL 3 ML AMPUL.NEB NEB SCH ×3 (00:16→13:36)
[2018-01-10] MEDS: 0.9 % SODIUM CHLORIDE 10 ML SYRINGE IV SCH ×3 (05:58→17:59)
[2018-01-10 06:09] LABS: Basophils # (Auto) 0 K/mcL (0.0-0.3); Basophils % (Auto) 0.5 % (0.0-2.0); Eosinophils # (Auto) 0.3 K/mcL (0.0-0.7); Eosinophils % (Auto) 4.3 % (0.0-7.0); Granulocytes % (Auto) 64.4 % (38.0-78.0); Lymphocytes # (Auto) 1.4 K/mcL (1.5-4.8); Lymphocytes % (Auto) 18.2 % (15.5-49.0); Mean Cell Volume 88.8 fL (80.0-100.0); Mean Corpuscular HGB Conc 32.7 g/dL (31.0-36.0); Monocytes % (Auto) 12.6 % (1.0-12.0); Platelet Count 223 K/mcL (140-440); RBC 4.09 M/mcL (4.00-5.20); Red Cell Distribution Width 16.3 % (11.5-14.5)
[2018-01-10 06:29] LABS: ALT/SGPT 22 U/l (0-40); Albumin 2.7 gm/dL (3.2-5.2); Albumin/Globulin Ratio 0.6 (1.0-2.3); Alkaline Phosphatase 90 U/L (39-117); Blood Urea Nitrogen 29 mg/dl (8-23)
[2018-01-10] MEDS: BUDESONIDE 0.5 MG/2 ML AMPUL.NEB NEB SCH ×2 (07:21→19:01)
[2018-01-10] MEDS: INSULIN LISPRO 1 UNIT/0.01 ML UNIT SQ SCH ×3 (08:11→18:11)
[2018-01-10] MEDS: CARVEDILOL 12.5 MG TABLET PO SCH ×2 (08:14→18:04)
[2018-01-10] MEDS ORDERED: LOSARTAN 25 MG TABLET PO SCH (09:00)
[2018-01-10] MEDS ORDERED: FUROSEMIDE 100 MG/10 ML VIAL IV SCH (09:00)
[2018-01-10] MEDS: ASPIRIN 81 MG TAB.CHEW PO SCH (09:01)
[2018-01-10] MEDS: SUCRALFATE 1 GM TABLET PO SCH (09:02)
[2018-01-10] MEDS: INSULIN GLARGINE, HUMAN 1 UNIT/0.01 ML SQ SCH (09:03)
--- NOTE | 2018-01-10 09:03 | XRay Report ---
HISTORY: Reason for Exam:CHF, fluid overload FINDINGS: The congestive heart failure has improved since 01/08/18. There are still mild bilateral perihilar opacities extending medially into the right lower lobe. The heart is mildly enlarged but has diminished in size. No pleural effusion is present. Left-sided Port-A-Cath is well-positioned and there is no pneumothorax. IMPRESSION: Improving congestive heart failure Interpreted and Authenticated by: Ortega Merchant 01/10/18
[2018-01-10] MEDS: GABAPENTIN 300 MG CAPSULE PO SCH (09:07)
[2018-01-10] MEDS ORDERED: HEPARIN SODIUM,PORCINE/PF 500 UNIT/5 ML SYRINGE IV ONE (15:00)
[2018-01-10 16:22] LABS: Appearance,Urine CLEAR; Bacteria,Urine 0 /hpf (0); Bilirubin,Urine NEG (NEG); Color,Urine STRAW; Glucose,Urine (UA) NEGATIVE (NEG); Leukocyte Esterase,Urine 25 /uL (NEG); Mucus,Urine FEW /hpf (0); Protein,Urine 30 mg/dL (NEG); Specific Gravity,Urine 1.008 (1.000-1.035); Urine Blood NEG mg/dL (<0.03); Urine RBC 2 /hpf (0-1); Urine Squamous Epithelial Cell 0 /hpf (0-4); Urine WBC 6 /hpf (0-4); Urobilinogen,Urine NEG (NEG)
--- NOTE | 2018-01-10 19:41 | Discharge Summary ---
Medical - DS: Prov Patient information: Note initiated : 01/10/18 at 7:39 pm Service Date, if different from initiated Date: [] Patient: Lyubov Brasher 82 y/o F admitted on 01/08/18 for SOB, Weight Gain, Abd Pain/CHF Exacerbation. Chief Complaint: [] Date of admission: 01/08/18 17:15 Discharge date: 01/10/18 Primary care physician: Todd Guthrie Admitting clinician: Leonora Deras Consults: 01/08/18 13:37 Consult to Physician [CONS] Stat Comment: Consulting Provider: Leonora Deras Reason For Exam: Physician to Consult Attending physician on discharge: Leonora Deras Medical - DS: Meds - Discharge Medications Active and Home Medications: Home Medications Gabapentin [Neurontin] 900 mg PO HS 08/30/17 [History Confirmed 01/08/18 Last Taken 01/07/18 21:00] digoxin 125 mcg tablet 125 mcg PO QDAY #90 tab 10/19/17 [Rx Confirmed 01/08/18 Last Taken 01/08/18 10:00] budesonide 90 mcg/actuation breath activated powder inhaler See Label Instructions INHALATION BID #1 each 10/29/17 [Rx Confirmed 01/08/18 Last Taken 01/08/18 10:00] carvedilol 12.5 mg tablet 12.5 mg PO BID #180 tab 10/29/17 [Rx Confirmed Last Taken 01/08/18 10:00] insulin detemir (U-100) 100 unit/mL subcutaneous solution See Label Instructions SUB-Q .COMPLEX #10 ml 10/29/17 [Rx Confirmed 01/08/18 Last Taken 21:00] montelukast 10 mg tablet 10 mg PO QPM #1 tab 10/29/17 [Rx Confirmed 01/08/18 Last Taken 01/07/18 21:00] ondansetron HCl 4 mg tablet 4 mg PO Q6H PRN #1 tab 10/29/17 [Rx Confirmed Last Taken 01/08/18 14:00] sucralfate 1 gram tablet 1 g PO BID #180 tab 10/29/17 [Rx Confirmed 01/08/18 Last Taken 01/08/18 10:00] umeclidinium 62.5 mcg-vilanterol 25 mcg/actuation powdr for inhalation 1 inh INHALATION Q24H #60 each 10/29/17 [Rx Confirmed 01/08/18 Last Taken 01/08/18 10: 00] tramadol 50 mg tablet 50 mg PO BID #180 tab 01/04/18 [Rx Confirmed 01/08/18 Last Taken 01/08/18 10:00] Aspirin [Lo-Dose Aspirin EC] 162 mg PO QDAY 01/08/18 [History Confirmed Last Taken 01/08/18 10:00] Furosemide [Lasix] 80 mg PO QDAY 01/08/18 [History Confirmed 01/08/18 Last Taken 01/08/18 10:00] Gabapentin [Neurontin] 600 mg PO BID 01/08/18 [History Confirmed 01/08/18 Last Taken 01/08/18 10:00] Hydrocodone/APAP 7.5/325Mg 7.5 mg PO PRN PRN 01/08/18 [History Confirmed Last Taken Unknown] Insulin Aspart [Novolog Flexpen] 4 unit SUB-Q 01/08/18 [History Last Taken 01/07 21:00] Magnesium Oxide [Magox 400] 400 mg PO DAILY 01/08/18 [History Confirmed Last Taken 01/07/18 18:00] Pramipexole Di-HCl [Pramipexole Dihydrochloride] 0.125 mg PO HS 01/08/18 [ History Confirmed 01/08/18 Last Taken 01/07/18 21:00] Sennosides 8.6 mg PO PRN PRN 01/08/18 [History Confirmed 01/08/18 Last Taken Unknown] Medical - DS: Hosp Hospital course: Ms. 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 She has just come home, off of hospice (for COPD/ CHF) at end of November. She has compliance issues with fluid restriction, and has significant weight gain of 10 pounds in 2 days, beginning to experience dyspnea on exertion, increased edema, overnight shortness of breath, with desaturation to 82% this morning. Preliminary x-ray show fluid overload CHF. She got 80 mg IV Lasix with 2.5 mg Zaroxolyn for diuresis, Echo is requested and done at the ER. She is admitted on telemetry observation for aggressive diuretic diuresis with fluid restriction, serial cardiac enzymes were negative for cardiac events , 2-D echo report reviewed it dilated cardiomyopathy with moderate pulmonary hypertension, with concentric LVH, preserved ejection fraction of 65-70%. She achieved a roughly -5.5 L negative balance over the observation hospitalization , and is discharged home with follow-up labs and follow-up clinic visit with her PCP. She is also reinforced and educated on use of bilateral MODESTO hose ( especially during the day), and the importance of CPAP use to preserve and improve her right heart function. She is advised to stop tramadol, avoid uses umeclidinium 62.5 mcg-vilanterol (regular Combivent is better in her case). She should follow up with her PCP (Dr. Guthrie) to further evaluate possible trial use of Norvasc, or Revatio help her cardiac diastolic heart failure with pulmonary hypertension. She is also encouraged him to pursue home PT OT rehabilitation, which will improve her conditions. She is discharged home in hemodynamically stable condition with her and daughter. Discharge diagnosis: CHF exacerbation, diastolic, pulm.HTN, need to reinforce fluid restriction Secondary discharge diagnosis: Moderate pulmonary hypertension, outpatient trial of Revatio and/or Norvasc. Noncompliance with CPAP, for sleep apnea COPD Atrial fibrillation, CKD stage III, Persistent proteinuria Obesity - Time Spent with Patient Total time spent providing and/or coordinating discharge services: Greater than 30 minutes Medical - DS: Exam - Constitutional Vitals: Vital Signs Temp Pulse Pulse Pulse Pulse Pulse Resp 01/10/18 15:35 98 F 18 01/10/18 15:25 68 72 78 70 01/10/18 13:35 84 20 01/10/18 12:00 99 F 24 H 01/10/18 07:50 99.0 F H 16 01/10/18 07:32 74 18 01/10/18 04:00 98.2 F 18 01/10/18 00:00 98.3 F 20 01/09/18 20:00 98.5 F 20 BP BP BP BP BP BP Pulse Ox 01/10/18 15:35 158/85 95 01/10/18 15:25 121/78 158/85 73/45 95/87 01/10/18 13:35 01/10/18 12:00 139/59 93 01/10/18 07:50 157/70 95 01/10/18 07:32 94 01/10/18 04:00 154/68 94 01/10/18 00:00 159/64 98 01/09/18 20:00 143/72 Intake and Output 01/10/18 01/10/18 01/10/18 05:59 13:59 21:59 Intake Total 240 / 240 120 / 120 240 / 240 Output Total 1850 / 1850 1600 / 1600 Balance -1610 / -1610 -1480 / -1480 240 / 240 Intake: Oral 240 / 240 120 / 120 240 / 240 Output: Urine Catheter Amount 1850 / 1850 1600 / 1600 Other: Meal yogurt Breakfast Lunch Percent of Meal Consumed 100% 100% 75% Feeding Ability Independent Independent Weight 245 lb Patient Weight 01/11/18 05:59 Weight 245 lb General appearance: morbidly obese, no acute distress - Head Head exam: Present: atraumatic, normocephalic - Eye Eye exam: Present: EOMI Pupils: Present: normal accommodation, PERRL - ENT ENT exam: Present: mucous membranes dry - Neck Neck exam: Absent: lymphadenopathy, meningismus, tenderness - Respiratory Respiratory exam: Present: CTAB. Absent: accessory muscle use, wheezes - Cardiovascular Cardiovascular exam: Present: +S1, +S2. Absent: gallop, rubs - GI/Abdominal GI/Abdominal exam: Present: normal bowel sounds, soft. Absent: guarding, rebound, tenderness - Extremities Exam Extremities exam: Absent: tenderness Additional comments: No clubbing, cyanosis, minimal edema - Neurological Exam Neurological exam: Present: alert, CN II-XII intact, oriented X3 - Skin Skin exam: Present: dry, intact, warm Medical - DS: Data Procedures and tests throughout hospitalization: 2-D echo preliminary report 01/08/18: Estimated borderline concentric LVH, estimated EF 65-70%, mildly dilated right ventricle, moderately dilated left atrium, moderate to severely dilated right atrium, mild mitral regurgitation and moderate pulmonary hypertension (50-70 mmHg) increased right atrial pressure, mild valvular aortic stenosis Labs on day of discharge: Labs from last 24 hours 01/10/18 01/10/18 01/10/18 14:35 03:50 03:50 WBC 7.8 RBC 4.09 Hgb 11.9 L Hct 36.4 MCV 88.8 MCH 29.0 MCHC 32.7 RDW 16.3 H Plt Count 223 MPV 10.7 H Gran % 64.4 Lymph % (Auto) 18.2 [place] % (Auto) 12.6 H Eos % (Auto) 4.3 Baso % (Auto) 0.5 Gran # 5.0 Lymph # (Auto) 1.4 L [place] # (Auto) 1.0 H Eos # (Auto) 0.3 Baso # (Auto) 0 Sodium 129 L Potassium 4.6 Chloride 86 L Carbon Dioxide 33 H Anion Gap 10.0 BUN 29 H Creatinine 1.4 H GFR Calculation 35 Glucose 124 H Calcium 9.6 Total Bilirubin 0.5 AST 39 H ALT 22 Alkaline Phosphatase 90 Total Protein 7.5 Albumin 2.7 L Globulin 4.8 H Albumin/Globulin Ratio 0.6 L Urine Color Straw Urine Appearance Clear Urine pH 7.0 Ur Specific [place] 1.008 Urine Protein 30 A Urine Glucose (UA) Negative Urine Ketones Neg Urine Occult Blood Neg Urine Nitrate Neg Urine Bilirubin Neg Urine Urobilinogen Neg Ur Leukocyte Esterase 25 A Urine RBC 2 H Urine WBC 6 H Ur Squamous Epith Cells 0 Urine Bacteria 0 Urine Mucus Few Ur Culture Indicated? Yes Medical - DS: A/P - Patient/Caregiver Discharge Instructions Activity: ambulate only with your walker, wear oxygen at all times Diet: Cardiac, Low Fat, Consistent Carbohydrate Additional Instructions: Stop tramadol, stop extra dose of gabapentin at at bedtime, maintain fluid restriction 6784-9077 mL per day, use CPAP machine every day. Continue home physical therapy(PT OT), use MODESTO hose, especially during the day. Follow-up labs, and follow with PCP in 1-2 weeks. Other Amb Orders: OT Discharge Order Location: Determined By Patient Physical Therapy at Discharge - General Location: Determined By Patient Complete Blood Count Time Frame: 4 Days, Location: Determined By Patient Comprehensive Metabolic Panel Time Frame: 4 Days, Location: Determined By Patient Digoxin Time Frame: 4 Days, Location: Determined By Patient Magnesium Time Frame: 01/13/18, Location: Determined By Patient Phosphorous Time Frame: 01/13/18, Location: Determined By Patient - Problem Maintenance (1) CHF exacerbation Status: Acute Qualifiers: Heart failure type: unspecified Qualified Code(s): I50.9 - Heart failure, unspecified (2) Pulmonary hypertension Status: Acute (3) ABDULLAHI on CPAP Status: Acute Comment: Noncompliance with CPAP practice (4) Elevated digoxin level Status: Acute (5) CKD (chronic kidney disease) stage 3, GFR 30-59 ml/min Status: Chronic (6) Persistent proteinuria Status: Chronic (7) Waldenstroms macroglobulinemia Status: Chronic (8) Atrial fibrillation Status: Chronic - Follow up Plan Follow up with: Todd Guthrie MD [Primary Care Provider] - 01/13/18 2:30 pm (Please check in at 2:15 ) Disposition: Home Health Service Prognosis: Fair Rehab Potential: Fair Overall status at discharge: patient is progressing back to baseline Medical - DS: Qual - VTE Deep Vein Thrombosis/Pulmonary Embolism Present on Admission: No
== END 2018-01-10 21:05 | disposition home health service (06) ==
LOC: ED 10:36 → ICU 10:36
PROVIDERS: ADMIT Emergency Medicine; ATTEND Emergency Medicine

== ENCOUNTER 2018-06-11 20:13 | Observation (INO) ==
--- NOTE | 2018-06-11 20:47 | Emergency Department Note ---
Weakness HPI - General Chief complaint: Weakness Stated complaint: WEAKNESS, SHAKINESS Time Seen by Provider: 06/11/18 20:27 Source: patient Mode of arrival: wheelchair Limitations: no limitations - History of Present Illness HPI Narrative: Is here with her who monitors her oxygen. He states that he had to increase her O2 today as it had dropped somewhat into the 80s when she is running LOW 90'S on 2 L of O2. She has had some increased weakness today. They have noticed that she has had about a 10 pound weight gain the last 10 days. Denies any chest pain. He does have a history of COPD and CHF has atrial fibrillation and is on Coumadin also has stage III CKDTreatment for cat bites treatment for cat bite her temperature is 97.2 the pulse is 82 the respiratory rate is 30 initial sats were 90% on 2 L not have any pain patient PATIENT STATEs she has a hx of stomach ca at 102 was taken off for a brief time her sats dropped down to 88% - Related Data Home Medications Medication Instructions Recorded Confirmed Magnesium Oxide [Magox 400] 400 mg PO DAILY 01/08/18 06/08/18 Sennosides 8.6 mg PO PRN PRN 01/08/18 06/08/18 insulin syringes (disposable) 1 mL See Dose Instructions .ROUTE 03/09/18 .MEDSUPPLY each insulin aspart U-100 100 unit/mL 20 unit SUB-Q TID ml 05/05/18 06/08/18 subcutaneous pen insulin detemir (U-100) 100 See Label Instructions SUB-Q QDAY 05/05/18 06/08/18 unit/mL subcutaneous solution ml apixaban 5 mg tablet 5 mg PO BID 06/08/18 06/08/18 Previous Rx's Medication Instructions Recorded budesonide 90 mcg/actuation breath See Label Instructions INHALATION 10/29/17 activated powder inhaler BID #1 each montelukast 10 mg tablet 10 mg PO QPM #1 tab 10/29/17 ondansetron HCl 4 mg tablet 4 mg PO Q6H PRN #1 tab 10/29/17 Acetaminophen [Tylenol] 650 mg PO Q6HP PRN tab 01/10/18 albuterol sulfate 2.5 mg/3 mL 1.25 mg INHALATION Q4H PRN #75 ml 09/12/18 (0.083 %) solution for nebulization furosemide 80 mg tablet 80 mg PO BID #240 tab 04/08/18 pen needle, diabetic 29 gauge x See Dose Instructions .ROUTE 04/15/18 1/2" .MEDSUPPLY #100 each umeclidinium 62.5 mcg-vilanterol 1 inh INHALATION Q24H #60 each 04/15/18 25 mcg/actuation powdr for inhalation pramipexole 0.125 mg tablet 0.125 mg PO QHS #90 tab 04/26/18 sucralfate 1 gram tablet 1 g PO BID #180 tab 04/26/18 Shingrix See Label Instructions .ROUTE 05/05/18 .COMPLEX #1 carvedilol 12.5 mg tablet 12.5 mg PO BID #180 tab 05/10/18 digoxin 125 mcg tablet 125 mcg PO .5XW #90 tab 05/10/18 tramadol 50 mg tablet 50 mg PO TID #10 tab 05/10/18 gabapentin 300 mg capsule See Label Instructions .ROUTE 05/13/18 .COMPLEX #450 cap Allergies Allergy/AdvReac Type Severity Reaction Status Date / Time pregabalin [From Lyrica] Allergy Severe Swelling Verified 06/08/18 16:09 of Lip/Tongue/Throat nitrofurantoin Allergy Mild Blister Verified 06/08/18 16:09 [From Macrodantin] Band-Aid AdvReac Mild Blister Uncoded 06/08/18 16:09 Review of Systems All systems ED: reviewed and negative except as stated. Respiratory: Reports: as per HPI, shortness of breath. Denies: cough, wheezes Neurological: Reports: as per HPI, weakness Past Medical History - Past Medical History [facility] Narrative: All Active Problems (Last Updated 04/08/18 @ 07:10 by Nabeel Dsouza MD) Localized edema due to fluid overload (Chronic) Acute exacerbation of chronic obstructive airways disease (Acute) Hip pain (Acute) COPD exacerbation (Acute) Strain of left hip (Acute) Trochanteric bursitis of left hip (Acute) Fall (Acute) Aspiration pneumonia (Acute) CHF exacerbation (Acute) Pulmonary hypertension (Acute) Elevated digoxin level (Acute) Soft tissue injury of left lower leg (Acute) Hematuria (Acute) Shortness of breath (Acute) Hematoma (Acute) CKD (chronic kidney disease) stage 3, GFR 30-59 ml/min (Chronic) Hypertension in stage 3 chronic kidney disease due to type 2 diabetes mellitus ( Chronic) Anemia in stage 3 chronic kidney disease (Chronic) Persistent proteinuria (Chronic) ABDULLAHI on CPAP (Acute) UTI (urinary tract infection) (Acute) Gastritis (Acute) Allergic reaction (Acute) Strain of lumbar region (Acute) Liver disease, unspecified (Acute) 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) Bronchitis, acute (Acute) Senile dementia (Chronic) Gastric lymphoma (Chronic) Acute gastric ulcer (Acute) Pneumonia involving right lung (Acute) Pleurisy (Acute) Osteoarthrosis, wrist (Acute) Bilateral myofascial pain (Acute) Neuralgia (Acute) Abdominal pain (Acute) Anticoagulant long-term use (Acute) Status post peripherally inserted central catheter (PICC) central line placement (Acute 09/24/14) History of hysterectomy (Acute) History of esophagogastroduodenoscopy (Acute 11/09/14) History of cholecystectomy (Acute) History of bone marrow biopsy (Acute 06/06/14) History of back surgery (Acute) Waldenstroms macroglobulinemia (Chronic) Sepsis (Acute) Rhinitis, allergic (Acute) Pneumonia (Acute) Pancytopenia (Acute) Morbid obesity (Acute) Monoclonal gammopathy (Acute) Low back pain (Acute) Hypertension, essential (Acute) Hyperlipidemia (Acute) Diastolic heart failure (Acute) Diabetes mellitus, type II (Acute) CHF (congestive heart failure) (Acute) COPD (chronic obstructive pulmonary disease) (Acute) Bacteremia (Acute) Atrial fibrillation (Chronic) Asthma (Acute) Apnea (Acute) Past Surgical History (Last Reviewed 03/09/18 @ 08:54 by Pam Joseph CMA) Status post peripherally inserted central catheter (PICC) central line placement (Acute 09/24/14) History of hysterectomy (Acute) History of esophagogastroduodenoscopy (Acute 11/09/14) History of cholecystectomy (Acute) History of bone marrow biopsy (Acute 06/06/14) History of back surgery (Acute) Family History (Last Reviewed 03/09/18 @ 08:54 by Pam Joseph CMA) Sister Family history of malignant neoplasm of breast Brother Family history of malignant neoplasm of prostate Father Family history of malignant neoplasm of trachea, bronchus, and lung Mother History of malignant neoplasm History of myocardial infarction Medical history: Reports: arthritis, asthma, atrial fibrillation, cancer, CHF, COPD, dementia, DM, hyperlipidemia, hypertension, liver disease, obesity, renal disease Psychiatric history: Reports: no psych history [employer] history: Reports: non-contributory Surgical history ED: Reports: ANDRES/BSO - Social History smoking status: Never smoker Alcohol use: Reports: Rarely Drug use: Reports: none Physical Exam Limitations: no limitations General appearance: alert Head: atraumatic, normocephalic Eye: Present: normal appearance, PERRL ENT: normal exam, normal oropharynx, mucous membranes moist Neck: Present: normal inspection, full ROM Chest: Present: symmetric chest wall rise Respiratory: Present: normal lung sounds bilaterally. Absent: respiratory distress, rales/crackles, wheezes Cardiovascular: Present: regular rate Abdominal: Present: soft, distention. Absent: tenderness, guarding, rebound Extremities: Present: normal inspection, full ROM. Absent: tenderness Back: Present: normal inspection, full ROM. Absent: tenderness, CVA tenderness (R), CVA tenderness (L), L-S tenderness Neurological: Present: alert, oriented X3, CN II-XII intact Psychiatric: Present: normal affect, normal mood Course Vital Signs Temperature 97.2 F 06/11/18 20:14 Pulse Rate 82 06/11/18 20:14 Respiratory Rate 30 H 06/11/18 20:14 Pulse Oximetry (%) 90 06/11/18 20:14 Temperature 97.2 F 06/11/18 20:14 Pulse Rate 84 06/11/18 23:01 Respiratory Rate 30 H 06/11/18 20:14 Blood Pressure 130/95 06/11/18 23:01 Pulse Oximetry (%) 91 06/11/18 23:01 Weakness - MDM Narrative Medical decision making narrative: WBC is 8700 hemoglobin 12.1 hematocrit 36.5 INR is 1.9 sodium is 132 the potassium 3.8 CO2 is 31.1.05 proBNP is 2730 chest x-ray shows CHF patient has 800 cc out after the Lasix patient to be admitted by Dr. Gibson - Lab Data Result diagrams: 06/11/18 20:35 06/11/18 20:35 Lab Results 06/11/18 06/11/18 06/11/18 Range/Units 20:35 20:35 20:35 WBC 8.7 (4.5-11.0) K/mcL RBC 3.96 L (4.00-5.20) M/mcL Hgb 12.1 (12.0-15.0) g/dL Hct 36.5 (36.0-48.0) % MCV 92.2 (80.0-100.0) fL MCH 30.5 (26.0-34.0) pg MCHC 33.1 (31.0-36.0) g/dL RDW 14.3 (11.5-14.5) % Plt Count 190 (140-440) K/mcL MPV 9.9 (7.4-10.4) fL Total Counted 100 Seg Neutrophils % 64 (38-78) % Band Neutrophils % Not Reportable Lymphocytes % 27 (15-49) % Monocytes % (Manual) 7 (1-12) % Eosinophils % (Manual) 2 (0-7) % Platelet Estimate Normal (NORMAL) RBC Morphology Abnorm A (NORMAL) Polychromasia 1+ A (NONE SEEN) PT (11.9-14.5) sec INR (0.9-1.1) VBG Lactic Acid (0.5-2.0) mmol/L Sodium 132 L (133-145) mmol/L Potassium 3.8 (3.3-5.1) mmol/L Chloride 90 L (96-108) mmol/L Carbon Dioxide 31 H (22-30) mmol/L Anion Gap 11.0 (8-16) BUN 31 H (8-23) mg/dl Creatinine 1.7 H (0.6-1.1) mg/dl GFR Calculation 28 Glucose 96 (70-105) mg/dL Calcium 9.5 (8.6-10.4) mg/dl Total Bilirubin 0.8 (0.0-1.0) mg/dL AST 24 (0-37) U/l ALT 15 (0-40) U/l Alkaline Phosphatase 82 (39-117) U/L Troponin T 0.05 H* (0-0.03) ng/ml NT-Pro-B Natriuret Pep 2730.0 H (0-450) pg/ml Total Protein 8.1 (5.9-8.4) gm/dL Albumin 2.7 L (3.2-5.2) gm/dL Globulin 5.4 H (2.2-3.7) gm/dL Albumin/Globulin Ratio 0.5 L (1.0-2.3) Urine Color Urine Appearance Urine pH (5.0-9.0) Ur Specific [place] (1.000-1.035) Urine Protein (NEG) mg/dL Urine Glucose (UA) (NEG) mg/dL Urine Ketones (NEG) mg/dL Urine Occult Blood (<0.03) mg/dL Urine Nitrate (NEG) Urine Bilirubin (NEG) mg/dL Urine Urobilinogen (NEG) mg/dL Ur Leukocyte Esterase (NEG) /uL Urine RBC (0-1) /hpf Urine WBC (0-4) /hpf Ur Squamous Epith Cells (0-4) /hpf Urine Bacteria (0) /hpf Hyaline Casts (0-2) /lpf Urine Mucus (0) /hpf Ur Culture Indicated? Digoxin ng/mL Digoxin Dose Digox Last Dose Time 06/11/18 06/11/18 06/11/18 Range/Units 20:35 20:45 21:00 WBC (4.5-11.0) K/mcL RBC (4.00-5.20) M/mcL Hgb (12.0-15.0) g/dL Hct (36.0-48.0) % MCV (80.0-100.0) fL MCH (26.0-34.0) pg MCHC (31.0-36.0) g/dL RDW (11.5-14.5) % Plt Count (140-440) K/mcL MPV (7.4-10.4) fL Total Counted Seg Neutrophils % (38-78) % Band Neutrophils % Lymphocytes % (15-49) % Monocytes % (Manual) (1-12) % Eosinophils % (Manual) (0-7) % Platelet Estimate (NORMAL) RBC Morphology (NORMAL) Polychromasia (NONE SEEN) PT 21.7 H (11.9-14.5) sec INR 1.9 H (0.9-1.1) VBG Lactic Acid 0.9 (0.5-2.0) mmol/L Sodium (133-145) mmol/L Potassium (3.3-5.1) mmol/L Chloride (96-108) mmol/L Carbon Dioxide (22-30) mmol/L Anion Gap (8-16) BUN (8-23) mg/dl Creatinine (0.6-1.1) mg/dl GFR Calculation Glucose (70-105) mg/dL Calcium (8.6-10.4) mg/dl Total Bilirubin (0.0-1.0) mg/dL AST (0-37) U/l ALT (0-40) U/l Alkaline Phosphatase (39-117) U/L Troponin T (0-0.03) ng/ml NT-Pro-B Natriuret Pep (0-450) pg/ml Total Protein (5.9-8.4) gm/dL Albumin (3.2-5.2) gm/dL Globulin (2.2-3.7) gm/dL Albumin/Globulin Ratio (1.0-2.3) Urine Color Urine Appearance Urine pH (5.0-9.0) Ur Specific [place] (1.000-1.035) Urine Protein (NEG) mg/dL Urine Glucose (UA) (NEG) mg/dL Urine Ketones (NEG) mg/dL Urine Occult Blood (<0.03) mg/dL Urine Nitrate (NEG) Urine Bilirubin (NEG) mg/dL Urine Urobilinogen (NEG) mg/dL Ur Leukocyte Esterase (NEG) /uL Urine RBC (0-1) /hpf Urine WBC (0-4) /hpf Ur Squamous Epith Cells (0-4) /hpf Urine Bacteria (0) /hpf Hyaline Casts (0-2) /lpf Urine Mucus (0) /hpf Ur Culture Indicated? Digoxin 0.9 ng/mL Digoxin Dose Not Reportable Digox Last Dose Time Not Reportable 06/11/18 Range/Units 21:48 WBC (4.5-11.0) K/mcL RBC (4.00-5.20) M/mcL Hgb (12.0-15.0) g/dL Hct (36.0-48.0) % MCV (80.0-100.0) fL MCH (26.0-34.0) pg MCHC (31.0-36.0) g/dL RDW (11.5-14.5) % Plt Count (140-440) K/mcL MPV (7.4-10.4) fL Total Counted Seg Neutrophils % (38-78) % Band Neutrophils % Lymphocytes % (15-49) % Monocytes % (Manual) (1-12) % Eosinophils % (Manual) (0-7) % Platelet Estimate (NORMAL) RBC Morphology (NORMAL) Polychromasia (NONE SEEN) PT (11.9-14.5) sec INR (0.9-1.1) VBG Lactic Acid (0.5-2.0) mmol/L Sodium (133-145) mmol/L Potassium (3.3-5.1) mmol/L Chloride (96-108) mmol/L Carbon Dioxide (22-30) mmol/L Anion Gap (8-16) BUN (8-23) mg/dl Creatinine (0.6-1.1) mg/dl GFR Calculation Glucose (70-105) mg/dL Calcium (8.6-10.4) mg/dl Total Bilirubin (0.0-1.0) mg/dL AST (0-37) U/l ALT (0-40) U/l Alkaline Phosphatase (39-117) U/L Troponin T (0-0.03) ng/ml NT-Pro-B Natriuret Pep (0-450) pg/ml Total Protein (5.9-8.4) gm/dL Albumin (3.2-5.2) gm/dL Globulin (2.2-3.7) gm/dL Albumin/Globulin Ratio (1.0-2.3) Urine Color Yellow Urine Appearance Clear Urine pH 7.0 (5.0-9.0) Ur Specific [place] 1.010 (1.000-1.035) Urine Protein 100 A (NEG) mg/dL Urine Glucose (UA) Negative (NEG) mg/dL Urine Ketones Neg (NEG) mg/dL Urine Occult Blood Neg (<0.03) mg/dL Urine Nitrate Neg (NEG) Urine Bilirubin Neg (NEG) mg/dL Urine Urobilinogen Neg (NEG) mg/dL Ur Leukocyte Esterase Neg (NEG) /uL Urine RBC 2 H (0-1) /hpf Urine WBC < 1 (0-4) /hpf Ur Squamous Epith Cells 0 (0-4) /hpf Urine Bacteria 0 (0) /hpf Hyaline Casts 1 (0-2) /lpf Urine Mucus Few (0) /hpf Ur Culture Indicated? No Digoxin ng/mL Digoxin Dose Digox Last Dose Time Disposition Pt seen by REVENUE OFFICER/PA only: No Clinical Impression: CHF (congestive heart failure) Qualifiers: Qualified Code(s): I50.42 - Chronic combined systolic (congestive) and diastolic (congestive) heart failure Disposition: Xfer As Inpt (TS) Condition: Fair Referrals: Todd Guthrie MD [Primary Care Provider] -
[2018-06-11] MEDS ORDERED: FUROSEMIDE 100 MG/10 ML VIAL IV ONE (20:55)
[2018-06-11 21:28] LABS: Mean Cell Volume 92.2 fL (80.0-100.0); Mean Corpuscular HGB Conc 33.1 g/dL (31.0-36.0); Mean Corpuscular Hemoglobin 30.5 pg (26.0-34.0); Platelet Count 190 K/mcL (140-440); RBC 3.96 M/mcL (4.00-5.20); Red Cell Distribution Width 14.3 % (11.5-14.5)
[2018-06-11 21:46] LABS: ALT/SGPT 15 U/l (0-40); Albumin 2.7 gm/dL (3.2-5.2); Albumin/Globulin Ratio 0.5 (1.0-2.3); Alkaline Phosphatase 82 U/L (39-117); Blood Urea Nitrogen 31 mg/dl (8-23)
[2018-06-11 22:07] LABS: Eosinophils % (Manual) 2 % (0-7); Lymphocytes % 27 % (15-49); Monocytes % (Manual) 7 % (1-12); Platelet Estimate NORMAL (NORMAL); RBC Morphology ABNORM (NORMAL); Segmented Neutrophils % 64 % (38-78)
[2018-06-11 22:44] LABS: Appearance,Urine CLEAR; Bacteria,Urine 0 /hpf (0); Bilirubin,Urine NEG (NEG); Color,Urine YELLOW; Glucose,Urine (UA) NEGATIVE (NEG); Leukocyte Esterase,Urine NEG /uL (NEG); Mucus,Urine FEW /hpf (0); Protein,Urine 100 mg/dL (NEG); Urine Blood NEG mg/dL (<0.03); Urine Hyaline Cast 1 /lpf (0-2); Urine RBC 2 /hpf (0-1); Urine Squamous Epithelial Cell 0 /hpf (0-4); Urine WBC < 1 /hpf (0-4); Urobilinogen,Urine NEG (NEG)
--- NOTE | 2018-06-11 23:22 | Internal Med History&Physical ---
Medical - H&P: HPI Patient information: Note initiated : 06/11/18 at 11:17 pm Service Date, if different from initiated Date: [] Patient: Lyubov Brasher a 83 y/o F admitted on for WEAKNESS, SHAKINESS. Chief Complaint: [] History of present illness: Ms. Brasher is a 83 year old F with history of congestive heart failure COPD presents to the emergency room today for evaluation of fatigue and edema and weight gain. The patient was brought in by her who also helped in providing history. According to the patient and the the patient was doing fine approximately up to a week ago and since then has been gaining weight. Over the last 1 week she has gained 10 pounds. The patient also has been having increased fatigue and tiredness. She does not do much at baseline but is fairly independent with her ADL. The patient has baseline tremors that exacerbated today. The patient given her weight gain fatigue and worsening tremors was brought to the emergency room for further evaluation. The patient denies any headache changes in vision difficulty in swallowing changes in hearing denies any chest pain shortness of breath cough nausea vomiting abdominal pain denies any problems with micturition denies any problems with diarrhea. Denies any problem with any new joint pain or new skin rashes. She notes that she has had a skin biopsy done on the right lower extremity and her legs have been more swollen than before. At baseline the patient does not use oxygen however she does have oxygen at home that was delivered to her from a previous visit. She also uses oxygen during sleep with her CPAP. The patient did start to use oxygen since yesterday because oxygen saturation was 88-90. On present to the emergency room patient was hemodynamically stable however her oxygen saturation was 88%. Her labs show normal WBC count hemoglobin 12 platelet 190, INR is 1.9 [patient on Eliquis] sodium 132 potassium 3.8 bicarbonate 31 creatinine 1.7 which is at baseline troponin 0 0.05 mildly elevated but has been elevated in the past, lactic acid is 0.9, BNP 2370. Digoxin level 0.9 albumin 2.7. Chest x-ray shows CHF EKG shows atrial fibrillation left axis and QS pattern in anterior and lateral leads poor R wave progression Echocardiogram done in December 2017 shows a normal left ventricular size left ventricle ejection fraction of 65-70% pulmonary hypertension with a pressure of 50-70 , left atrium was moderately dilated right ventricle was moderate to severely dilated. All systems: reviewed and no additional remarkable complaints except as stated ( As per HPI or is negative) Medical - H&P: [facility] Medical history: Medical History (Last Updated 04/08/18 @ 07:10 by Nabeel Dsouza MD) CKD (chronic kidney disease) stage 3, GFR 30-59 ml/min (Chronic) Hypertension in stage 3 chronic kidney disease due to type 2 diabetes mellitus ( Chronic) Anemia in stage 3 chronic kidney disease (Chronic) Persistent proteinuria (Chronic) UTI (urinary tract infection) (Acute) Gastritis (Acute) Allergic reaction (Acute) Strain of lumbar region (Acute) Liver disease, unspecified (Acute) Bronchitis, acute (Acute) Senile dementia (Chronic) Gastric lymphoma (Chronic) Pancreatic cyst (Ruled-out) Acute gastric ulcer (Acute) Pneumonia involving right lung (Acute) Pleurisy (Acute) Osteoarthrosis, wrist (Acute) Bilateral myofascial pain (Acute) Neuralgia (Acute) Abdominal pain (Acute) Anticoagulant long-term use (Acute) Waldenstroms macroglobulinemia (Chronic) Sepsis (Acute) Rhinitis, allergic (Acute) Pneumonia (Acute) Pancytopenia (Acute) Morbid obesity (Acute) Monoclonal gammopathy (Acute) Low back pain (Acute) Hypertension, essential (Acute) Hyperlipidemia (Acute) Diastolic heart failure (Acute) Diabetes mellitus, type II (Acute) CHF (congestive heart failure) (Acute) COPD (chronic obstructive pulmonary disease) (Acute) Bacteremia (Acute) Atrial fibrillation (Chronic) Asthma (Acute) Apnea (Acute) CHF, acute (Inactive) Surgical history: Past Surgical History (Last Reviewed 03/09/18 @ 08:54 by Pam Joseph CMA) Status post peripherally inserted central catheter (PICC) central line placement (Acute 09/24/14) History of hysterectomy (Acute) History of esophagogastroduodenoscopy (Acute 11/09/14) History of cholecystectomy (Acute) History of bone marrow biopsy (Acute 06/06/14) History of back surgery (Acute) Pertinent family history: Family History (Last Reviewed 03/09/18 @ 08:54 by Pam Joseph CMA) Sister Family history of malignant neoplasm of breast Brother Family history of malignant neoplasm of prostate Father Family history of malignant neoplasm of trachea, bronchus, and lung Mother History of malignant neoplasm History of myocardial infarction Medical - H&P: Meds Home Medications Medication Instructions Recorded Confirmed Type budesonide 90 mcg/actuation breath See Label Instructions INHALATION 10/29/17 Rx activated powder inhaler BID #1 each montelukast 10 mg tablet 10 mg PO QPM #1 tab 10/29/17 06/08/18 Rx ondansetron HCl 4 mg tablet 4 mg PO Q6H PRN #1 tab 10/29/17 06/08/18 Rx Magnesium Oxide [Magox 400] 400 mg PO DAILY 01/08/18 06/08/18 History Sennosides 8.6 mg PO PRN PRN 01/08/18 06/08/18 History Acetaminophen [Tylenol] 650 mg PO Q6HP PRN tab 01/10/18 06/08/18 Rx albuterol sulfate 2.5 mg/3 mL 1.25 mg INHALATION Q4H PRN #75 ml 03/09/18 Rx (0.083 %) solution for nebulization insulin syringes (disposable) 1 mL See Dose Instructions .ROUTE 03/09/18 History .MEDSUPPLY each furosemide 80 mg tablet 80 mg PO BID #240 tab 04/08/18 06/08/18 Rx pen needle, diabetic 29 gauge x See Dose Instructions .ROUTE 04/15/18 06/08/18 Rx 1/2" .MEDSUPPLY #100 each umeclidinium 62.5 mcg-vilanterol 1 inh INHALATION Q24H #60 each 04/15/18 Rx 25 mcg/actuation powdr for inhalation pramipexole 0.125 mg tablet 0.125 mg PO QHS #90 tab 04/26/18 06/08/18 Rx sucralfate 1 gram tablet 1 g PO BID #180 tab 04/26/18 06/08/18 Rx Shingrix See Label Instructions .ROUTE 05/05/18 06/08/18 Rx .COMPLEX #1 insulin aspart U-100 100 unit/mL 20 unit SUB-Q TID ml 05/05/18 06/08/18 History subcutaneous pen insulin detemir (U-100) 100 See Label Instructions SUB-Q QDAY 05/05/18 06/08/18 History unit/mL subcutaneous solution ml carvedilol 12.5 mg tablet 12.5 mg PO BID #180 tab 05/10/18 06/08/18 Rx digoxin 125 mcg tablet 125 mcg PO .5XW #90 tab 05/10/18 06/08/18 Rx tramadol 50 mg tablet 50 mg PO TID #10 tab 05/10/18 06/08/18 Rx gabapentin 300 mg capsule See Label Instructions .ROUTE 05/13/18 06/08/18 Rx .COMPLEX #450 cap apixaban 5 mg tablet 5 mg PO BID 06/08/18 06/08/18 History Allergies Allergy/AdvReac Type Severity Reaction Status Date / Time pregabalin [From Lyrica] Allergy Severe Swelling Verified 06/08/18 16:09 of Lip/Tongue/Throat nitrofurantoin Allergy Mild Blister Verified 06/08/18 16:09 [From Macrodantin] Band-Aid AdvReac Mild Blister Uncoded 06/08/18 16:09 Medical - H&P: Exam - Constitutional Vitals: Temp Pulse Resp BP Pulse Ox 97.2 F 73 30 H 161/81 91 06/11/18 20:14 06/11/18 22:08 06/11/18 20:14 06/11/18 22:08 06/11/18 22:08 Exam: Constitutional; Afebrile, cooperative, alert, not in distress. Morbidly obese Eyes- No icterus, , No periorbital swelling Ears- Ext ear normal, hearing normal to conversation. Neck- Midline trachea, supple Respiratory system: Air Entry equal on both sides, crackles present at both bases, patient is able to speak full sentences no accessory muscle use patient does not have any wheezes or rhonchi CVS- Rate normal irregular rhythm, S1,S2 heard, no gallop, no rub. Abdomen- Soft nontender abdomen, no organomegaly, no tenderness, no guarding or rigidity, large pannus difficult to do deep palpation WRITING TUTOR- AOOx3, moving all extremities, no gross focal deficit noted. Extremities-bilateral pitting edema +3 Medical - H&P: Reslt - Labs CBC & Chem 7: 06/11/18 20:35 06/11/18 20:35 Labs: Short CBC 06/11/18 Range/Units 20:35 WBC 8.7 (4.5-11.0) K/mcL Hgb 12.1 (12.0-15.0) g/dL Hct 36.5 (36.0-48.0) % Plt Count 190 (140-440) K/mcL BMP 06/11/18 20:35 Sodium 132 L Potassium 3.8 Chloride 90 L Carbon Dioxide 31 H BUN 31 H Creatinine 1.7 H Glucose 96 Calcium 9.5 Cardiac Enzymes 06/11/18 Range/Units 20:35 Troponin T 0.05 H* (0-0.03) ng/ml Liver Function 06/11/18 Range/Units 20:35 Total Bilirubin 0.8 (0.0-1.0) mg/dL AST 24 (0-37) U/l ALT 15 (0-40) U/l Alkaline Phosphatase 82 (39-117) U/L Albumin 2.7 L (3.2-5.2) gm/dL Urine 06/11/18 Range/Units 21:48 Urine Color Yellow Urine Appearance Clear Urine pH 7.0 (5.0-9.0) Ur Specific [place] 1.010 (1.000-1.035) Urine Protein 100 A (NEG) mg/dL Urine Glucose (UA) Negative (NEG) mg/dL Medical - H&P: A/P - Narrative A/P Narrative: A/P Acute hypoxic respiratory Failure Acute Congestive heart failure/Daistolic heart failure Acute cor pulmonale? Chronic Kidney Disease Hyponatremia, mild Atrial fibrillation Morbid Obesity HTN DM type 2 H/o Stomach Cancer Neuropathy Plan Admit to tele as observation She responded well to IV lasix 80mg in the ER Switch her oral dose from oral to IV 80mg bid consider use of metolozone if not adequately responding Cut back on dose of eliquis in light of age and renal function from 5mg bid to 2.5mg bid. (verify home dose) Resume home medications as verified Lantus and ssi insulin for glucose control DVT on eliquis Full code for now Carb consistent, cardiac diet. Social History - Tobacco smoking status: Never smoker - Alcohol alcohol intake frequency: does not drink
[2018-06-12] MEDS ORDERED: DEXTROSE 50% 50 ML VIAL IV PRN (01:23)
[2018-06-12] MEDS ORDERED: ONDANSETRON 4 MG/2 ML VIAL IV PRN (01:23)
[2018-06-12] MEDS ORDERED: DEXTROSE 31 GM ORAL.SUSP PO PRN (01:23)
[2018-06-12] MEDS ORDERED: NALOXONE HCL 0.4 MG/ML VIAL IV PRN (01:23)
[2018-06-12] MEDS: IPRATROPIUM/ALBUTEROL 3 ML AMPUL.NEB NEB SCH ×4 (04:51→18:25)
[2018-06-12] MEDS: 0.9 % SODIUM CHLORIDE 10 ML SYRINGE IV SCH ×3 (05:19→21:21)
[2018-06-12 05:20] LABS: Basophils # (Auto) 0 K/mcL (0.0-0.3); Basophils % (Auto) 0.5 % (0.0-2.0); Eosinophils # (Auto) 0.2 K/mcL (0.0-0.7); Eosinophils % (Auto) 2.5 % (0.0-7.0); Granulocytes % (Auto) 68.6 % (38.0-78.0); Lymphocytes # (Auto) 1.5 K/mcL (1.5-4.8); Lymphocytes % (Auto) 17.5 % (15.5-49.0); Mean Cell Volume 93.5 fL (80.0-100.0); Mean Corpuscular Hemoglobin 30.8 pg (26.0-34.0); Monocytes # (Auto) 0.9 K/mcL (0.1-0.9); Monocytes % (Auto) 10.9 % (1.0-12.0); Platelet Count 177 K/mcL (140-440); RBC 3.86 M/mcL (4.00-5.20); Red Cell Distribution Width 14.4 % (11.5-14.5)
[2018-06-12 05:46] LABS: ALT/SGPT 14 U/l (0-40); Albumin 2.7 gm/dL (3.2-5.2); Albumin/Globulin Ratio 0.5 (1.0-2.3); Alkaline Phosphatase 80 U/L (39-117); Bilirubin,Direct 0.2 mg/dL (0.0-0.3); Blood Urea Nitrogen 31 mg/dl (8-23); Gamma Glutamyl Transpeptidase 49 U/L (5-36); Uric Acid 11.4 mg/dL (2.5-8.0)
--- NOTE | 2018-06-12 07:04 | XRay Report ---
CLINICAL INFORMATION: weakness, hypoxia. COMPARISON: 02/11/2016 and 02/28/2018 FINDINGS: Moderate cardiomegaly shows slight increase. Left subclavian Port-A-Cath remains in stable satisfactory position. Mediastinum is unremarkable. Pulmonary vessels are mildly distended and there is moderate interstitial edema (particularly when compared to a baseline chest x-ray from 02/11/2016). Small right pleural effusion noted. No infiltrates IMPRESSION: Moderate CHF Interpreted and Authenticated by: Ean Dougherty 06/12/18
[2018-06-12] MEDS: ACETAMINOPHEN 325 MG TABLET PO PRN ×2 (08:39→16:48)
[2018-06-12] MEDS: INSULIN LISPRO 1 UNIT/0.01 ML UNIT SQ SCH ×4 (08:39→21:23)
[2018-06-12] MEDS: FUROSEMIDE 100 MG/10 ML VIAL IV SCH ×2 (08:40→16:47)
[2018-06-12] MEDS ORDERED: INSULIN GLARGINE, HUMAN 1 UNIT/0.01 ML SQ SCH (09:00)
[2018-06-12] MEDS: APIXABAN 2.5 MG TABLET PO SCH ×2 (09:56→21:24)
--- NOTE | 2018-06-12 13:27 | Internal Med Progress Note ---
Medical - PN: Subj Patient information: Note initiated : 06/12/18 at 1:25 pm Service Date, if different from initiated Date: [] Patient: Lyubov Brasher 83 y/o F admitted on 06/12/18 for WEAKNESS, SHAKINESS. Chief Complaint: [] Interval history: Ms. Brasher is a 83 year old F with history of congestive heart failure COPD presents to the emergency room today for evaluation of fatigue and edema and weight gain. The patient was brought in by her who also helped in providing history. According to the patient and the the patient was doing fine approximately up to a week ago and since then has been gaining weight. Over the last 1 week she has gained 10 pounds. The patient also has been having increased fatigue and tiredness. She does not do much at baseline but is fairly independent with her ADL. The patient has baseline tremors that exacerbated today. The patient given her weight gain fatigue and worsening tremors was brought to the emergency room for further evaluation. The patient denies any headache changes in vision difficulty in swallowing changes in hearing denies any chest pain shortness of breath cough nausea vomiting abdominal pain denies any problems with micturition denies any problems with diarrhea. Denies any problem with any new joint pain or new skin rashes. She notes that she has had a skin biopsy done on the right lower extremity and her legs have been more swollen than before. At baseline the patient does not use oxygen however she does have oxygen at home that was delivered to her from a previous visit. She also uses oxygen during sleep with her CPAP. The patient did start to use oxygen since yesterday because oxygen saturation was 88-90. On present to the emergency room patient was hemodynamically stable however her oxygen saturation was 88%. Her labs show normal WBC count hemoglobin 12 platelet 190, INR is 1.9 [patient on Eliquis] sodium 132 potassium 3.8 bicarbonate 31 creatinine 1.7 which is at baseline troponin 0 0.05 mildly elevated but has been elevated in the past, lactic acid is 0.9, BNP 2370. Digoxin level 0.9 albumin 2.7. Chest x-ray shows CHF EKG shows atrial fibrillation left axis and QS pattern in anterior and lateral leads poor R wave progression Echocardiogram done in December 2017 shows a normal left ventricular size left ventricle ejection fraction of 65-70% pulmonary hypertension with a pressure of 50-70 , left atrium was moderately dilated right ventricle was moderate to severely dilated. 06/12 Patient seen examined, by the bedside no acute complaints, patient had glucos of 70 this AM, but was asymptomatic dose of lantus changed to 20bid (was on 30 bid) Responding to lasix well, good urine output Pertinent ROS: Denies headache, dizziness Denies chest pain, palpitations Denies cough or shortness of breath Denies abdominal pain, nausea or vomiting. - Constitutional Vitals: Vital Signs Temp Pulse Resp BP Pulse Ox 98.1 F 72 24 H 142/62 93 06/12/18 11:00 06/12/18 08:23 06/12/18 11:00 06/12/18 11:00 06/12/18 11:00 Period Temp Pulse Resp BP Sys/Smith Pulse Ox Last 24 Hr 97.2 F-99.3 F 72-84 16-30 114-186/62-106 3-93 Intake and Output 06/11/18 06/12/18 06/12/18 21:59 05:59 13:59 Intake Total 250 / 250 690 / 690 Output Total 1525 / 1525 400 / 400 Balance -1275 / -1275 290 / 290 Weight 260 lb 256 lb 8 oz Intake & Output: Intake & Output 06/11/18 06/12/18 06/12/18 21:59 05:59 13:59 Intake Total 250 / 250 690 / 690 Output Total 1525 / 1525 400 / 400 Balance -1275 / -1275 290 / 290 Weight 260 lb 256 lb 8 oz Intake: Oral 250 / 250 690 / 690 Output: Urine Catheter Amount 1525 / 1525 400 / 400 Other: Meal snack Lunch Percent of Meal Consumed 100% 50% Feeding Ability Assist with Tray Set Up Independent Urine Appearance Clear Uretheral (Grier) Clear Clear Clear Urine Color Bright Yellow Uretheral (Grier) Straw Bright Yellow Bright Yellow Exam: Constitutional; Afebrile, cooperative, alert, not in distress. Respiratory system: Air Entry equal on both sides, much improved crackles, no wheezing, no rhonchi. CVS- Rate rhythm regular, S1,S2 heard, no gallop, no rub. Abdomen- Soft nontender abdomen, no organomegaly, no tenderness, no guarding or rigidity, [employer]IST- AOOx3, moving all extremities, no gross focal deficit noted. Medical - PN: Obj Da - Labs CBC & Chem 7: 06/12/18 04:00 06/12/18 04:00 Labs: Abnormal Lab Results 06/12/18 06/12/18 06/11/18 04:00 04:00 21:48 RBC 3.86 L Hgb 11.9 L MPV 10.5 H RBC Morphology Polychromasia PT INR Sodium Chloride 90 L Carbon Dioxide 32 H BUN 31 H Creatinine 1.7 H Glucose 111 H Uric Acid 11.4 H GGT 49 H Troponin T NT-Pro-B Natriuret Pep Albumin 2.7 L Globulin 5.1 H Albumin/Globulin Ratio 0.5 L Urine Protein 100 A Urine RBC 2 H 06/11/18 06/11/18 06/11/18 20:45 20:35 20:35 RBC Hgb MPV RBC Morphology Polychromasia PT 21.7 H INR 1.9 H Sodium 132 L Chloride 90 L Carbon Dioxide 31 H BUN 31 H Creatinine 1.7 H Glucose Uric Acid GGT Troponin T 0.05 H* NT-Pro-B Natriuret Pep 2730.0 H Albumin 2.7 L Globulin 5.4 H Albumin/Globulin Ratio 0.5 L Urine Protein Urine RBC 06/11/18 20:35 RBC 3.96 L Hgb MPV RBC Morphology Abnorm A Polychromasia 1+ A PT INR Sodium Chloride Carbon Dioxide BUN Creatinine Glucose Uric Acid GGT Troponin T NT-Pro-B Natriuret Pep Albumin Globulin Albumin/Globulin Ratio Urine Protein Urine RBC Meds: Medications Acetaminophen (Tylenol) 650 mg PO Q6HP PRN PRN Reason: PAIN/FEVER > 101 Last Admin: 06/12/18 08:39 Dose: 650 mg Albuterol/Ipratropium (Duoneb) 3 ml NEB Q6HRT [facility] Last Admin: 06/12/18 07:50 Dose: 3 ml Apixaban (Eliquis) 2.5 mg PO BID [facility] Last Admin: 06/12/18 09:56 Dose: 2.5 mg Dextrose (Dextrose 50%) 0 ml IV UD PRN PRN Reason: Hypoglycemia Diagnostic Test (Pha) (Accu-Chek) 1 each FS ACHS [facility] Last Admin: 06/12/18 12:06 Dose: 1 each Furosemide (Lasix) 80 mg IV BIDD [facility] Last Admin: 06/12/18 08:40 Dose: 80 mg Glucose (Insta-Glucose) 15 gm PO PRN PRN PRN Reason: Hypoglycemia Insulin Glargine (Lantus) 30 unit SQ BID [facility] Last Admin: 06/12/18 09:58 Dose: 30 unit Insulin Human Lispro (Humalog) 0 unit SQ ACHS [facility]; Protocol Last Admin: 06/12/18 12:06 Dose: 1 unit Naloxone HCl (Narcan) 0.1 mg IV Q2MIN PRN PRN Reason: Opiate Reversal Ondansetron HCl (Zofran) 4 mg IV Q4HP PRN PRN Reason: Nausea And Vomiting Oxycodone HCl (Roxicodone) 5 mg PO Q4HP PRN PRN Reason: pain not controlled by apap Sodium Chloride (Saline Flush) 10 ml IV Q8 [facility] Last Admin: 06/12/18 05:19 Dose: 10 ml Medical - PN: A/P - Time Spent With Patient Total time spent is greater than 50% in coordination of care (as documented) at patient's floor/unit and/or counseling patient: - Narrative A/P Narrative: A/P Acute hypoxic respiratory Failure Acute Congestive heart failure/Daistolic heart failure Acute cor pulmonale? Chronic Kidney Disease Hyponatremia, mild Atrial fibrillation Morbid Obesity HTN DM type 2 H/o Stomach Cancer Neuropathy Plan continue to monitor on tele still on 2 L oxygen, wean off as tolerated She responded well to IV lasix 80mg IV , continue, is neg 985 since admission. consider use of metolozone if not adequately responding Cut back on dose of eliquis in light of age and renal function from 5mg bid to 2.5mg bid. (verify home dose) Resume home medications as verified (not verified yet) Lantus and ssi insulin for glucose control, dose of lantus cut back in light of decreased glucose values in AM DVT on eliquis Full code for now Carb consistent, cardiac diet. Medical - PN: Qual - VTE Deep Vein Thrombosis/Pulmonary Embolism Present on Admission: No
[2018-06-12] MEDS: oxyCODONE HCL 5 MG TABLET PO PRN ×2 (13:32→23:51)
--- NOTE | 2018-06-12 15:01 | Internal Med Progress Note ---
Medical - PN: Subj Patient information: Note initiated : 06/12/18 at 3:00 pm Service Date, if different from initiated Date: [] Patient: Lyubov Brasher 83 y/o F admitted on 06/12/18 for WEAKNESS, SHAKINESS. Chief Complaint: [] Interval history: Ms. Brasher is a 83 year old F with history of congestive heart failure COPD presents to the emergency room today for evaluation of fatigue and edema and weight gain. The patient was brought in by her who also helped in providing history. According to the patient and the the patient was doing fine approximately up to a week ago and since then has been gaining weight. Over the last 1 week she has gained 10 pounds. The patient also has been having increased fatigue and tiredness. She does not do much at baseline but is fairly independent with her ADL. The patient has baseline tremors that exacerbated today. The patient given her weight gain fatigue and worsening tremors was brought to the emergency room for further evaluation. The patient denies any headache changes in vision difficulty in swallowing changes in hearing denies any chest pain shortness of breath cough nausea vomiting abdominal pain denies any problems with micturition denies any problems with diarrhea. Denies any problem with any new joint pain or new skin rashes. She notes that she has had a skin biopsy done on the right lower extremity and her legs have been more swollen than before. At baseline the patient does not use oxygen however she does have oxygen at home that was delivered to her from a previous visit. She also uses oxygen during sleep with her CPAP. The patient did start to use oxygen since yesterday because oxygen saturation was 88-90. On present to the emergency room patient was hemodynamically stable however her oxygen saturation was 88%. Her labs show normal WBC count hemoglobin 12 platelet 190, INR is 1.9 [patient on Eliquis] sodium 132 potassium 3.8 bicarbonate 31 creatinine 1.7 which is at baseline troponin 0 0.05 mildly elevated but has been elevated in the past, lactic acid is 0.9, BNP 2370. Digoxin level 0.9 albumin 2.7. Chest x-ray shows CHF EKG shows atrial fibrillation left axis and QS pattern in anterior and lateral leads poor R wave progression Echocardiogram done in December 2017 shows a normal left ventricular size left ventricle ejection fraction of 65-70% pulmonary hypertension with a pressure of 50-70 , left atrium was moderately dilated right ventricle was moderate to severely dilated. 06/12 Patient seen examined, by the bedside no acute complaints, patient had glucos of 70 this AM, but was asymptomatic dose of lantus changed to 20bid (was on 30 bid) Responding to lasix well, good urine output - Constitutional Vitals: Vital Signs Temp Pulse Resp BP Pulse Ox 98.1 F 80 18 142/62 93 06/12/18 11:00 06/12/18 14:16 06/12/18 14:16 06/12/18 11:00 06/12/18 11:00 Period Temp Pulse Resp BP Sys/Smith Pulse Ox Last 24 Hr 97.2 F-99.3 F 72-84 16-30 114-186/62-106 3-93 Intake and Output 06/12/18 06/12/18 06/12/18 05:59 13:59 21:59 Intake Total 250 / 250 690 / 690 Output Total 1525 / 1525 400 / 400 Balance -1275 / -1275 290 / 290 Weight 116.346 kg Intake & Output: Intake & Output 06/12/18 06/12/18 06/12/18 05:59 13:59 21:59 Intake Total 250 / 250 690 / 690 Output Total 1525 / 1525 400 / 400 Balance -1275 / -1275 290 / 290 Weight 116.346 kg Intake: Oral 250 / 250 690 / 690 Output: Urine Catheter Amount 1525 / 1525 400 / 400 Other: Meal snack Lunch Percent of Meal Consumed 100% 50% Feeding Ability Assist with Tray Set Up Independent Urine Appearance Clear Uretheral (Grier) Clear Clear Urine Color Bright Yellow Uretheral (Grier) Bright Yellow Bright Yellow Medical - PN: Obj Da - Labs CBC & Chem 7: 06/13/18 04:00 06/13/18 04:00 Labs: Abnormal Lab Results 06/12/18 06/12/18 06/11/18 04:00 04:00 21:48 RBC 3.86 L Hgb 11.9 L MPV 10.5 H RBC Morphology Polychromasia PT INR Sodium Chloride 90 L Carbon Dioxide 32 H BUN 31 H Creatinine 1.7 H Glucose 111 H Uric Acid 11.4 H GGT 49 H Troponin T NT-Pro-B Natriuret Pep Albumin 2.7 L Globulin 5.1 H Albumin/Globulin Ratio 0.5 L Urine Protein 100 A Urine RBC 2 H 06/11/18 06/11/18 06/11/18 20:45 20:35 20:35 RBC Hgb MPV RBC Morphology Polychromasia PT 21.7 H INR 1.9 H Sodium 132 L Chloride 90 L Carbon Dioxide 31 H BUN 31 H Creatinine 1.7 H Glucose Uric Acid GGT Troponin T 0.05 H* NT-Pro-B Natriuret Pep 2730.0 H Albumin 2.7 L Globulin 5.4 H Albumin/Globulin Ratio 0.5 L Urine Protein Urine RBC 06/11/18 20:35 RBC 3.96 L Hgb MPV RBC Morphology Abnorm A Polychromasia 1+ A PT INR Sodium Chloride Carbon Dioxide BUN Creatinine Glucose Uric Acid GGT Troponin T NT-Pro-B Natriuret Pep Albumin Globulin Albumin/Globulin Ratio Urine Protein Urine RBC Meds: Medications Acetaminophen (Tylenol) 650 mg PO Q6HP PRN PRN Reason: PAIN/FEVER > 101 Last Admin: 06/12/18 08:39 Dose: 650 mg Albuterol/Ipratropium (Duoneb) 3 ml NEB Q6HRT [facility] Last Admin: 06/12/18 13:55 Dose: 3 ml Apixaban (Eliquis) 2.5 mg PO BID [facility] Last Admin: 06/12/18 09:56 Dose: 2.5 mg Dextrose (Dextrose 50%) 0 ml IV UD PRN PRN Reason: Hypoglycemia Diagnostic Test (Pha) (Accu-Chek) 1 each FS [facility] Last Admin: 06/12/18 12:06 Dose: 1 each Furosemide (Lasix) 80 mg IV BIDD [facility] Last Admin: 06/12/18 08:40 Dose: 80 mg Glucose (Insta-Glucose) 15 gm PO PRN PRN PRN Reason: Hypoglycemia Insulin Glargine (Lantus) 20 unit SQ BID [facility] Insulin Human Lispro (Humalog) 0 unit SQ [facility]; Protocol Last Admin: 06/12/18 12:06 Dose: 1 unit Naloxone HCl (Narcan) 0.1 mg IV Q2MIN PRN PRN Reason: Opiate Reversal Ondansetron HCl (Zofran) 4 mg IV Q4HP PRN PRN Reason: Nausea And Vomiting Oxycodone HCl (Roxicodone) 5 mg PO Q4HP PRN PRN Reason: pain not controlled by apap Last Admin: 06/12/18 13:32 Dose: 5 mg Sodium Chloride (Saline Flush) 10 ml IV Q8 [facility] Last Admin: 06/12/18 05:19 Dose: 10 ml Medical - PN: A/P - Time Spent With Patient Total time spent is greater than 50% in coordination of care (as documented) at patient's floor/unit and/or counseling patient: - Narrative A/P Narrative: A: *Acute hypoxic respiratory Failure: *Acute Congestive heart failure/Diastolic heart failure: *Acute cor pulmonale? *Chronic Kidney Disease IIIb-IV: *Hyponatremia, mild: resolved *chronic Atrial fibrillation *Morbid Obesity *HTN *DM type 2 *H/o Stomach Cancer *Neuropathy *ABDULLAHI on cpap: uses nocturnal O2 Plan: -continue to monitor on tele -wean down/off oxygen -Transition IV lasix 80mg IV to PO; consider use of metolozone if not adequately responding -Cut back on dose of eliquis in light of age and renal function from 5mg bid to 2.5mg bid. (verify home dose) - -Lantus and ssi insulin for glucose control, dose of lantus cut back in light of decreased glucose values in AM -pt/ot -ppx: on eliquis Full code for now Medical - PN: Qual - VTE Deep Vein Thrombosis/Pulmonary Embolism Present on Admission: No
[2018-06-12] MEDS ORDERED: SENNOSIDES 1 TABLET PO PRN (15:09)
--- NOTE | 2018-06-12 15:17 | Discharge Summary ---
Medical - DS: Prov Patient information: Note initiated : 06/12/18 at 3:14 pm Service Date, if different from initiated Date: [] Patient: Lyubov Brasher 83 y/o F admitted on 06/12/18 for WEAKNESS, SHAKINESS. Chief Complaint: [] Date of admission: 06/12/18 01:19 Discharge date: 06/13/18 Primary care physician: Todd Guthrie Medical - DS: Meds - Discharge Medications Prescriptions: Apixaban [Eliquis] 2.5 mg PO BID #30 tab Active and Home Medications: Home Medications budesonide 90 mcg/actuation breath activated powder inhaler See Label Instructions INHALATION BID #1 each 10/29/17 [Rx Confirmed 06/08/18 Last Taken 01/08/18 10:00] montelukast 10 mg tablet 10 mg PO QPM #1 tab 10/29/17 [Rx Confirmed 06/12/18 Last Taken 01/07/18 21:00] ondansetron HCl 4 mg tablet 4 mg PO Q6H PRN #1 tab 10/29/17 [Rx Confirmed Last Taken 01/08/18 14:00] Magnesium Oxide [Magox 400] 400 mg PO DAILY 01/08/18 [History Confirmed Last Taken 01/07/18 18:00] Sennosides 8.6 mg PO PRN PRN 01/08/18 [History Confirmed 06/12/18 Last Taken Unknown] Acetaminophen [Tylenol] 650 mg PO Q6HP PRN tab 01/10/18 [Rx Confirmed 06/12/18 Last Taken Unknown] albuterol sulfate 2.5 mg/3 mL (0.083 %) solution for nebulization 1.25 mg INHALATION Q4H PRN #75 ml 03/09/18 [Rx Confirmed 06/08/18 Last Taken Unknown] insulin syringes (disposable) 1 mL See Dose Instructions .ROUTE .MEDSUPPLY each 03/09/18 [History Confirmed 06/08/18 Last Taken Unknown] furosemide 80 mg tablet 80 mg PO BID #240 tab 04/08/18 [Rx Confirmed 06/12/18 Last Taken Unknown] pen needle, diabetic 29 gauge x 1/2" See Dose Instructions .ROUTE .MEDSUPPLY # 100 each 04/15/18 [Rx Confirmed 06/08/18 Last Taken Unknown] umeclidinium 62.5 mcg-vilanterol 25 mcg/actuation powdr for inhalation 1 inh INHALATION Q24H #60 each 04/15/18 [Rx Confirmed 06/08/18 Last Taken Unknown] pramipexole 0.125 mg tablet 0.125 mg PO QHS #90 tab 04/26/18 [Rx Confirmed 06/12 Last Taken Unknown] sucralfate 1 gram tablet 1 g PO BID #180 tab 04/26/18 [Rx Confirmed 06/12/18 Last Taken Unknown] Shingrix See Label Instructions .ROUTE .COMPLEX #1 05/05/18 [Rx Confirmed Last Taken Unknown] insulin aspart U-100 100 unit/mL subcutaneous pen 20 unit SUB-Q TID ml [History Confirmed 06/08/18 Last Taken Unknown] insulin detemir (U-100) 100 unit/mL subcutaneous solution See Label Instructions SUB-Q QDAY ml 05/05/18 [History Confirmed 06/08/18 Last Taken Unknown] carvedilol 12.5 mg tablet 12.5 mg PO BID #180 tab 05/10/18 [Rx Confirmed Last Taken Unknown] digoxin 125 mcg tablet 125 mcg PO .5XW #90 tab 05/10/18 [Rx Confirmed 06/12/18 Last Taken Unknown] gabapentin 300 mg capsule See Label Instructions .ROUTE .COMPLEX #450 cap [Rx Confirmed 06/12/18 Last Taken Unknown] apixaban 5 mg tablet 5 mg PO BID 06/08/18 [History Confirmed 06/12/18 Last Taken Unknown] traMADol 06/12/18 [History Last Taken Unknown] traMADol [Ultram] 50 mg PO BID 06/12/18 [History Confirmed 06/12/18 Last Taken Unknown] traMADol [Ultram] 100 mg PO HS 06/12/18 [History Confirmed 06/12/18 Last Taken Unknown] Medical - DS: Hosp Hospital course: Mr. Brasher is a 83 year old F Ms. Brasher is a 83 year old F with history of congestive heart failure COPD presents to the emergency room today for evaluation of fatigue and edema and weight gain. The patient was brought in by her who also helped in providing history. According to the patient and the the patient was doing fine approximately up to a week ago and since then has been gaining weight. Over the last 1 week she has gained 10 pounds. The patient also has been having increased fatigue and tiredness. She does not do much at baseline but is fairly independent with her ADL. The patient has baseline tremors that exacerbated today. The patient given her weight gain fatigue and worsening tremors was brought to the emergency room for further evaluation. The patient denies any headache changes in vision difficulty in swallowing changes in hearing denies any chest pain shortness of breath cough nausea vomiting abdominal pain denies any problems with micturition denies any problems with diarrhea. Denies any problem with any new joint pain or new skin rashes. She notes that she has had a skin biopsy done on the right lower extremity and her legs have been more swollen than before. At baseline the patient does not use oxygen however she does have oxygen at home that was delivered to her from a previous visit. She also uses oxygen during sleep with her CPAP. The patient did start to use oxygen since yesterday because oxygen saturation was 88-90. On present to the emergency room patient was hemodynamically stable however her oxygen saturation was 88%. Her labs show normal WBC count hemoglobin 12 platelet 190, INR is 1.9 [patient on Eliquis] sodium 132 potassium 3.8 bicarbonate 31 creatinine 1.7 which is at baseline troponin 0 0.05 mildly elevated but has been elevated in the past, lactic acid is 0.9, BNP 2370. Digoxin level 0.9 albumin 2.7. Chest x-ray shows CHF EKG shows atrial fibrillation left axis and QS pattern in anterior and lateral leads poor R wave progression Echocardiogram done in December 2017 shows a normal left ventricular size left ventricle ejection fraction of 65-70% pulmonary hypertension with a pressure of 50-70 , left atrium was moderately dilated right ventricle was moderate to severely dilated. 06/12 Patient seen examined, by the bedside no acute complaints, patient had glucos of 70 this AM, but was asymptomatic dose of lantus changed to 20bid (was on 30 bid) Responding to lasix well, good urine output 06/13 Doing well, no overnight events, feeling much better, wanting to go home. Stable for discharge. However this patient has multiple readmissions, multiple significant comorbidities and very high risk for readmission. Discharge diagnosis: CHF diastolic hypoxic respiratory failure Secondary discharge diagnosis: Chronic kidney disease chronic A. fib morbid obesity hypertension diabetes neuropathy obstructive sleep apnea - Time Spent with Patient Total time spent providing and/or coordinating discharge services: Greater than 30 minutes Medical - DS: Exam - Constitutional Vitals: Vital Signs Temp Pulse Resp BP BP BP Pulse Ox 06/12/18 14:16 80 18 06/12/18 11:00 98.1 F 24 H 142/62 93 06/12/18 08:23 72 18 06/12/18 08:00 92 06/12/18 04:33 98.4 F 16 151/71 88 L 06/12/18 04:15 3 L 06/12/18 04:10 88 L 06/12/18 04:00 88 L 06/12/18 01:39 99.3 F H 20 141/88 87 L 06/12/18 01:36 141/88 06/12/18 01:33 75 152/106 88 L 06/12/18 01:01 74 114/78 93 06/12/18 00:32 72 139/69 93 06/12/18 00:02 75 135/67 93 06/11/18 23:31 82 146/94 93 06/11/18 23:01 84 130/95 91 06/11/18 22:32 82 154/76 93 06/11/18 22:08 73 161/81 91 06/11/18 22:02 76 161/81 93 06/11/18 21:47 77 175/89 88 L 06/11/18 21:16 78 175/89 91 06/11/18 21:02 77 174/103 92 06/11/18 20:47 77 186/80 91 06/11/18 20:38 74 88 L 06/11/18 20:14 97.2 F 82 30 H 90 Intake and Output 06/12/18 06/12/18 06/12/18 05:59 13:59 21:59 Intake Total 250 / 250 690 / 690 Output Total 1525 / 1525 400 / 400 Balance -1275 / -1275 290 / 290 Intake: Oral 250 / 250 690 / 690 Output: Urine Catheter Amount 1525 / 1525 400 / 400 Other: Meal snack Lunch Percent of Meal Consumed 100% 50% Feeding Ability Assist with Tray Set Up Independent Urine Appearance Clear Uretheral (Grier) Clear Clear Urine Color Bright Yellow Uretheral (Grier) Bright Yellow Bright Yellow Weight 116.346 kg Medical - DS: Data Labs on day of discharge: Labs from last 24 hours 06/12/18 06/12/18 06/11/18 04:00 04:00 21:48 WBC 8.6 RBC 3.86 L Hgb 11.9 L Hct 36.1 MCV 93.5 MCH 30.8 MCHC 33.0 RDW 14.4 Plt Count 177 MPV 10.5 H Gran % 68.6 Lymph % (Auto) 17.5 Harlan % (Auto) 10.9 Eos % (Auto) 2.5 Baso % (Auto) 0.5 Gran # 5.9 Lymph # (Auto) 1.5 Harlan # (Auto) 0.9 Eos # (Auto) 0.2 Baso # (Auto) 0 Total Counted Seg Neutrophils % Band Neutrophils % Lymphocytes % Monocytes % (Manual) Eosinophils % (Manual) Platelet Estimate RBC Morphology Polychromasia PT INR VBG Lactic Acid Sodium 134 Potassium 3.5 Chloride 90 L Carbon Dioxide 32 H Anion Gap 12.0 BUN 31 H Creatinine 1.7 H GFR Calculation 28 Glucose 111 H Uric Acid 11.4 H Calcium 9.2 Phosphorus 3.8 Magnesium 2.0 Total Bilirubin 0.8 Direct Bilirubin 0.2 GGT 49 H AST 23 ALT 14 Alkaline Phosphatase 80 Lactate Dehydrogenase 249 Troponin T NT-Pro-B Natriuret Pep Total Protein 7.8 Albumin 2.7 L Globulin 5.1 H Albumin/Globulin Ratio 0.5 L Triglycerides 85 Urine Color Yellow Urine Appearance Clear Urine pH 7.0 Ur Specific Russell 1.010 Urine Protein 100 A Urine Glucose (UA) Negative Urine Ketones Neg Urine Occult Blood Neg Urine Nitrate Neg Urine Bilirubin Neg Urine Urobilinogen Neg Ur Leukocyte Esterase Neg Urine RBC 2 H Urine WBC < 1 Ur Squamous Epith Cells 0 Urine Bacteria 0 Hyaline Casts 1 Urine Mucus Few Ur Culture Indicated? No Digoxin Digoxin Dose Digox Last Dose Time 06/11/18 06/11/18 06/11/18 21:00 20:45 20:35 WBC RBC Hgb Hct MCV MCH MCHC RDW Plt Count MPV Gran % Lymph % (Auto) Harlan % (Auto) Eos % (Auto) Baso % (Auto) Gran # Lymph # (Auto) Harlan # (Auto) Eos # (Auto) Baso # (Auto) Total Counted Seg Neutrophils % Band Neutrophils % Lymphocytes % Monocytes % (Manual) Eosinophils % (Manual) Platelet Estimate RBC Morphology Polychromasia PT 21.7 H INR 1.9 H VBG Lactic Acid 0.9 Sodium Potassium Chloride Carbon Dioxide Anion Gap BUN Creatinine GFR Calculation Glucose Uric Acid Calcium Phosphorus Magnesium Total Bilirubin Direct Bilirubin GGT AST ALT Alkaline Phosphatase Lactate Dehydrogenase Troponin T NT-Pro-B Natriuret Pep Total Protein Albumin Globulin Albumin/Globulin Ratio Triglycerides Urine Color Urine Appearance Urine pH Ur Specific Russell Urine Protein Urine Glucose (UA) Urine Ketones Urine Occult Blood Urine Nitrate Urine Bilirubin Urine Urobilinogen Ur Leukocyte Esterase Urine RBC Urine WBC Ur Squamous Epith Cells Urine Bacteria Hyaline Casts Urine Mucus Ur Culture Indicated? Digoxin 0.9 Digoxin Dose Not Reportable Digox Last Dose Time Not Reportable 06/11/18 06/11/18 06/11/18 20:35 20:35 20:35 WBC 8.7 RBC 3.96 L Hgb 12.1 Hct 36.5 MCV 92.2 MCH 30.5 MCHC 33.1 RDW 14.3 Plt Count 190 MPV 9.9 Gran % Lymph % (Auto) Harlan % (Auto) Eos % (Auto) Baso % (Auto) Gran # Lymph # (Auto) Harlan # (Auto) Eos # (Auto) Baso # (Auto) Total Counted 100 Seg Neutrophils % 64 Band Neutrophils % Not Reportable Lymphocytes % 27 Monocytes % (Manual) 7 Eosinophils % (Manual) 2 Platelet Estimate Normal RBC Morphology Abnorm A Polychromasia 1+ A PT INR VBG Lactic Acid Sodium 132 L Potassium 3.8 Chloride 90 L Carbon Dioxide 31 H Anion Gap 11.0 BUN 31 H Creatinine 1.7 H GFR Calculation 28 Glucose 96 Uric Acid Calcium 9.5 Phosphorus Magnesium Total Bilirubin 0.8 Direct Bilirubin GGT AST 24 ALT 15 Alkaline Phosphatase 82 Lactate Dehydrogenase Troponin T 0.05 H* NT-Pro-B Natriuret Pep 2730.0 H Total Protein 8.1 Albumin 2.7 L Globulin 5.4 H Albumin/Globulin Ratio 0.5 L Triglycerides Urine Color Urine Appearance Urine pH Ur Specific Russell Urine Protein Urine Glucose (UA) Urine Ketones Urine Occult Blood Urine Nitrate Urine Bilirubin Urine Urobilinogen Ur Leukocyte Esterase Urine RBC Urine WBC Ur Squamous Epith Cells Urine Bacteria Hyaline Casts Urine Mucus Ur Culture Indicated? Digoxin Digoxin Dose Digox Last Dose Time Medical - DS: A/P - Patient/Caregiver Discharge Instructions Activity: increase activity as tolerated Diet: Consistent Carbohydrate Additional Instructions: Monitor weight daily. If you gain 3 pounds take one extra tablet of your Lasix each morning for the next 3 mornings. Prescriptions: Apixaban [Eliquis] 2.5 mg PO BID #30 tab - Follow up Plan Follow up with: Todd Guthrie MD [Primary Care Provider] - 06/15/18 1:30 pm (This appointment is with Michael Petty as Dr. Guthrie is on vacation. Please check in at 1:15.) Regulo Richmond MD [Physician] - Disposition: Home Health Service Prognosis: Fair Rehab Potential: Fair Overall status at discharge: patient is progressing back to baseline Medical - DS: Qual - VTE Deep Vein Thrombosis/Pulmonary Embolism Present on Admission: No
[2018-06-12] MEDS: CARVEDILOL 12.5 MG TABLET PO SCH (17:54)
[2018-06-12] MEDS ORDERED: MONTELUKAST 10 MG TABLET PO SCH (21:00)
[2018-06-12] MEDS ORDERED: traMADol 50 MG TABLET PO SCH (21:00)
[2018-06-12] MEDS ORDERED: APIXABAN 5 MG PO SCH (21:00)
[2018-06-12] MEDS ORDERED: PRAMIPEXOLE 0.25 MG TABLET PO SCH (21:00)
[2018-06-12] MEDS ORDERED: GABAPENTIN 300 MG CAPSULE PO SCH (21:00)
[2018-06-12] MEDS: INSULIN GLARGINE, HUMAN 1 UNIT/0.01 ML SQ SCH (21:23)
[2018-06-13] MEDS: IPRATROPIUM/ALBUTEROL 3 ML AMPUL.NEB NEB SCH ×2 (01:02→07:05)
[2018-06-13] MEDS: oxyCODONE HCL 5 MG TABLET PO PRN (04:44)
[2018-06-13 06:06] LABS: Basophils # (Auto) 0 K/mcL (0.0-0.3); Basophils % (Auto) 0.5 % (0.0-2.0); Eosinophils # (Auto) 0.4 K/mcL (0.0-0.7); Eosinophils % (Auto) 5.3 % (0.0-7.0); Granulocytes % (Auto) 64.8 % (38.0-78.0); Lymphocytes # (Auto) 1.3 K/mcL (1.5-4.8); Lymphocytes % (Auto) 18.9 % (15.5-49.0); Mean Cell Volume 93.6 fL (80.0-100.0); Mean Corpuscular HGB Conc 32.9 g/dL (31.0-36.0); Mean Corpuscular Hemoglobin 30.8 pg (26.0-34.0); Monocytes # (Auto) 0.7 K/mcL (0.1-0.9); Monocytes % (Auto) 10.5 % (1.0-12.0); Platelet Count 189 K/mcL (140-440); Red Cell Distribution Width 14.4 % (11.5-14.5)
[2018-06-13 06:37] LABS: ALT/SGPT 14 U/l (0-40); Albumin 2.6 gm/dL (3.2-5.2); Albumin/Globulin Ratio 0.5 (1.0-2.3); Alkaline Phosphatase 89 U/L (39-117); Bilirubin,Direct < 0.2 mg/dL (0.0-0.3); Blood Urea Nitrogen 29 mg/dl (8-23); Gamma Glutamyl Transpeptidase 48 U/L (5-36); Uric Acid 11.9 mg/dL (2.5-8.0)
[2018-06-13] MEDS: INSULIN LISPRO 1 UNIT/0.01 ML UNIT SQ SCH ×2 (07:04→12:00)
[2018-06-13] MEDS: CARVEDILOL 12.5 MG TABLET PO SCH (07:31)
[2018-06-13] MEDS: FUROSEMIDE 100 MG/10 ML VIAL IV SCH (07:32)
[2018-06-13] MEDS ORDERED: GABAPENTIN 300 MG CAPSULE PO SCH (08:00)
[2018-06-13] MEDS ORDERED: MAGNESIUM OXIDE 400 MG TABLET PO SCH (09:00)
[2018-06-13] MEDS: APIXABAN 2.5 MG TABLET PO SCH (09:07)
[2018-06-13] MEDS: 0.9 % SODIUM CHLORIDE 10 ML SYRINGE IV SCH (09:08)
[2018-06-13] MEDS: INSULIN GLARGINE, HUMAN 1 UNIT/0.01 ML SQ SCH (09:08)
[2018-06-13] MEDS ORDERED: HEPARIN SODIUM,PORCINE/PF 500 UNIT/5 ML SYRINGE IV SCH (11:45)
[2018-06-13] MEDS ORDERED: DIGOXIN 125 MCG TABLET PO SCH (14:00)
== END 2018-06-13 12:53 | disposition home health service (06) ==
LOC: ICU 20:13 → ED 20:13 → ICU 06-12 01:37
PROVIDERS: ADMIT Internal Medicine; ATTEND Internal Medicine
CPT/HCPCS: 97162; 99217; 99218; A9270; G0378; G8978; J1815; J1817; J1940; J7620; J7620-GY